=== PATIENT | female | born 1945 | race Caucasian/White ===

== ENCOUNTER → 2017-09-20 08:19 | Outpatient (CLI) | payer MEDICARE, SELFPAY ==
--- NOTE | 2017-09-20 08:33 | MM_ITS ---
MM Dig screening mamm BI w/CAD CAD Screening ORDERING PHYSICIAN : Rashi Thomson MD PATIENT AGE: 72 years GENDER: Female COMPARISON: Previous mammograms: 20 INDICATION: Previous stereotactic biopsy upper-outer quadrant bilateral. November 2016 but that doesn't work TECHNIQUE: Standard CC and MLO images were obtained. R2 CAD reviewed. FINDINGS: RIGHT BREAST: Small metallic MicroMark clip at the upper outer quadrant right breast at site of previous biopsy. No new areas of concern on the right. Follow-up in one year on right adequate LEFT BREAST:. On cc view focal density along the tract of previous percutaneous biopsy dissipates on the MLO view and. I believe it merely reflects the scarring extends superiorly along the tract to this biopsy site... The small grouping calcifications of concern were removed with prior biopsy.. This area is labeled X with the metallic biopsy marker at its anterior aspect Area labeled Y just medial to this is been seen previously but is slightly more pronounced today. This may merely be projection but does warrant additional views. I would suggest the patient return for MLO, 90 degree, and cc spot views of upper outer quadrant. Rolled cc views may be of benefit if densities persist on the cc spot view.. At the area labeled Y appears to be more pronounced and may warrant a ultrasound as well but I suspect that we'll dissipate compatible with studies dating back to 2010 Other densities the left breast appear stable specifically area previously labeled Y., & Medial to the biopsy site. This would benefit from interval follow-up as well IMPRESSION: ------ 1. Left breast ... Focal density related to previous percutaneous biopsy-pronounced cc view but it dissipates on MLO view & most likely reflects scarring along the biopsy entry tract. This area labeled X. ... Focal area density labeled Y just medial to this, seen previously but appears more pronounced today. It most likely stable density but would suggest spot views of both these areas as described above to further evaluate.. If they appear more pronounced the prior studies and ultrasound may be of benefit to further evaluate as well 2. Right breast. Stable appearance of the right breast. No new findings. Follow-up in one year adequate on right. BI-RADS Category: 0 Need Additional Imaging Evaluaiton RECOMMENDED FOLLOW-UP: IMM - IMMEDIATE FOLLOW-UP RECOMMENDED . Spot views left breast.; If significant appearing densities persist then ultrasound may be warranted (A letter has been sent to the patient regarding results of the study.)
== END ==
PROVIDERS: PCP Family Medicine; Visit Provider Surgery
DX: Z12.31 Encounter for screening mammogram for malignant neoplasm of breast (principal)
CPT/HCPCS: 77067

== ENCOUNTER → 2017-10-04 12:36 | Outpatient (CLI) | payer MEDICARE, SELFPAY ==
--- NOTE | 2017-10-04 | US_ITS ---
MM Dig mamm DX unilat LT WITH CAD,. Diagnostic mammogram left breast with spot views US breast LT complete ORDERING PHYSICIAN : Rashi Thomson MD PATIENT AGE: 72 years GENDER: Female COMPARISON: Previous mammograms: September 20, 2017, mammogram 9 month post biopsy INDICATION: Further evaluation density upper-outer quadrant left breast postbiopsy TECHNIQUE: Spot CC and MLO & 90 degree images were obtained. Along with rolled cc views entire breast. R2 CAD reviewed. ====== DIGITAL MAMMOGRAM LEFT BREAST WITH SPOT VIEWS :Patient is undergone stereotactic biopsy upper-outer quadrant left breast with metallic marker here. Focal density labeled X immediately posterior to the metallic marker is noted on recent studies today's additional views support that it reflects a vertical area of density and scarring along the entry tract towards superior breast. The density dissipates and rolled cc views and we see a vertically oriented area of density on the 90 degree and MLO view contrast this focal density which is due to summation shadow. The area labeled Y just medial to this appears to dissipate on additional views with no focal area of concern Patient may resume annual scheduled, with bilateral mammogram Aug 2018 or September 2018 ======== ULTRASOUND LEFT BREAST including axillary survey Ultrasound survey of the entire breast performed through the axillary survey. Today's Ultrasound left breast shows no discrete nodule or mass. No areas of significant concern. This further supports density seen on mammography is related to summation shadow.. Benign axillary lymph node. IMPRESSION: 1. Additional views left breast at left breast ultrasound decreased concern regarding any significant finding. . Patient may resume annual mammography schedule . 2. The density labeled X seen at prior biopsy site on cc view, dissipates on other views and appears to be related to summation shadow related from vertically oriented needle biopsy tract residual... No area of significant concern . 3. The questioned area density labeled Y on prior studies dissipates on these views and similar to old studies. It can be followed BI-RADS Category: 2 Benign Finding(s). RECOMMENDED FOLLOW-UP: 1YR - 1 YEAR FOLLOW-UP Follow-up in August 2018 or September 2018 adequate (A letter has been sent to the patient regarding results of the study.)
== END ==
PROVIDERS: PCP Family Medicine; Visit Provider Surgery
DX: R92.8 Other abnormal and inconclusive findings on diagnostic imaging of breast (principal)
CPT/HCPCS: 19083; 76641; 77065

== ENCOUNTER → 2017-10-12 09:45 | Outpatient (CLI) | payer MEDICARE, SELFPAY ==
--- NOTE | 2017-10-12 10:43 | XR_ITS ---
XR foot RT min 3V HISTORY: ITS.REASON: DM, PN, HAMMERTOES ORDERING PHYSICIAN: Sally Mcclure DPM PATIENT AGE: 72 years COMPARISON: None FINDINGS: Marked deformity is present involving the distal aspect of the second through fifth metatarsals with thinning and pointing of the distal aspect of the metatarsals. Similar processes involving the proximal phalanx of the second and fourth toes. Etiology of this deformity is undetermined. Psoriatic arthritis may cause a pencil in cup deformity such as this. Please correlate with clinical parameters. There is flexion deformity involving the second through fifth toes with foreshortening of the proximal phalanx of the third toe. Moderate hallux valgus with a first metatarsophalangeal angle of 39 degrees with osteoarthritic change of the first metatarsophalangeal joint. Hypertrophic changes are present at the base of the second metatarsal. There is generalized osteopenia with severe osteoarthritic changes of the ankle joint with collapse of the talar dome and osteoarthritic change of the talocalcaneal joint. There may be mid foot fusion of the navicular and cuneiforms. No acute fracture apparent. No bony destructive process. There is an old fracture the distal shaft of the fibula. IMPRESSION: Marked deformity of the right foot involving hindfoot and midfoot and forefoot as detailed above. Pencil in cup deformities of the second through fifth metatarsals which may be seen with psoriatic arthritis. Hallux valgus. Fusion of the mid foot. Severe osteoarthritis of the ankle joint with collapse of the talus and possible prior fusion of the talocalcaneal joint
--- NOTE | 2017-10-12 10:43 | XR_ITS ---
XR foot LT min 3V HISTORY: Foot pain ITS.REASON: DM, PN, HAMMERTOES ORDERING PHYSICIAN: Sally Mcclure DPM PATIENT AGE: 72 years COMPARISON: None FINDINGS: There is mild hallux valgus the first metatarsophalangeal angle of 25 degrees and mild hypertrophic changes of the distal aspect of the first metatarsal. There are osteoarthritic changes of the navicular cuneiform joint. A metallic and is present in the mid shaft of the second metatarsal with some cortical thickening at this region. There is mild flattening of the distal aspect of the third metatarsal which could be due to old avascular process. The distal aspect of the proximal phalanx of the second, third, fourth, and fifth toes is missing and could be due to prior surgery or erosive changes. Please correlate clinically. May be an old fracture of distal aspect of the fourth metatarsal as well IMPRESSION: 1. Hallux valgus with osteoarthritis and midfoot osteoarthritis. 2. Deformity of the proximal phalanx of the second through fifth toes which could be postsurgical or due to erosive changes. 3. 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
== END ==
PROVIDERS: PCP Family Medicine; Visit Provider Podiatrist
DX: E11.42 Type 2 diabetes mellitus with diabetic polyneuropathy (principal); M20.40 Other hammer toe(s) (acquired), unspecified foot
CPT/HCPCS: 73630

== ENCOUNTER → 2017-11-17 10:56 | Outpatient (CLI) | payer MEDICARE, SELFPAY ==
--- NOTE | 2017-11-17 11:15 | XR_ITS ---
XR knee RT 3V HISTORY: Right knee pain and swelling ITS.REASON: RT KNEE PAIN ORDERING PHYSICIAN: Miles Garcia MD PATIENT AGE: 72 years COMPARISON: None FINDINGS: There are mild tricompartmental osteoarthritic changes present with slight decrease in the joint spaces and minimal osteophyte formation at the medial compartment and patellofemoral joint. There is increased density in the suprapatellar region consistent with knee joint effusion. There is a lucency along the superior aspect of the patella measuring 11 mm. This could be related to dorsal defect of the patella or osteochondritis dissecans. There is chondrocalcinosis of medial and lateral menisci. IMPRESSION: 1. Mild tricompartmental osteoarthritic change with chondrocalcinosis. 2. Lucency of the patella superiorly and may be due to dorsal defect of the patella versus osteochondritis desiccation. 3. Knee joint effusion
== END ==
PROVIDERS: PCP Family Medicine; Visit Provider Family Medicine
DX: M25.561 Pain in right knee (principal)
CPT/HCPCS: 73562

== ENCOUNTER 2018-01-04 08:00 | Outpatient (RCR) | payer MEDICARE, SELFPAY ==
--- NOTE | 2017-11-24 13:50 | HMH.PTOPEV ---
Rehab Outpatient Evaluation Rehab OP Evaluation Start: 11/24/17 13:01 Freq: Status: Active Protocol: Document 11/24/17 13:36 CARMEN (Rec: 11/24/17 13:44 PHORMONIQUE [id number]) Electronically Signed By Rey Botello, PT 11/24/17 13:36 Outpatient Therapy Subjective History Subjective History Pt presents with c/o pain in right knee x ~ 2 mos. She states, I stepped wrrong and kind of twisted it and it hurt for a few days then got better, but not all the way. Pt had X-ray performed which shows OA of the right knee. She reports extensive hx of DM with neuropathy and prior episode of Charcot foot on right years ago requiring her to wear an AFO at all times. She also reports hx of HL and CVI. Chief Complaint Pain Symptom Type Ache Symptoms Relieved By Rest/Positioning Symptoms Aggravated By Standing Walking Prior Functional Limitations None Current Functional Limitations Standing Walking Symptom Description Activity Dependent Level of pain today (0-10) 0 Pain scale - at its worst (0-10) 4 Hip/Knee Eval Gait Observation General Gait Pattern Observation No Deviations/Normal Palpation Tenderness right Knee Palpation Finding Tenderness Knee Palpation Overall Comment medial knee jt line MMT Hip Strength Reason Not Measured WFL Knee Strength Reason Not Measured WFL ROM Knee Extension Active Range of Motion ( 0 degrees) Knee Flexion Active Range of Motion ( 120 degrees) Special Tests Knee Anterior Drawer Test Negative Right Thompson 90/90 Test (PCL) Negative Right Knee Anterior Papo Test Negative Right Knee Pivot Shift Test Negative Right Knee Valgus Stress Test Negative Right Knee Varus Stress Test Negative Right Knee Annemarie Test Negative Right Outpatient Therapy Assessment Impairments Problems/Impairmments Palpation Tenderness Impaired Walking Impaired Standing Subjective C/O Pain Impaired Self Care/Self Management Prognosis Rehab Potential Good Clinical Impression Consistent with Diagnosis Yes Short Term Go
== END 2018-01-04 08:01 | disposition home or self-care (01) ==
LOC: PT 08:00
PROVIDERS: PCP Family Medicine; Visit Provider Family Medicine
DX: M25.561 Pain in right knee (principal)
CPT/HCPCS: 97010; 97014; 97016; 97033; 97035; 97110; 97140; G0283

== ENCOUNTER → 2018-09-07 10:11 | Outpatient (POV) | payer MEDICARE, SELFPAY | PROVIDERS: Visit Provider Podiatrist | DX: Z00.00 Encounter for general adult medical examination without abnormal findings (principal) ==

== ENCOUNTER → 2018-09-25 08:09 | Outpatient (CLI) | payer MEDICARE, SELFPAY ==
--- NOTE | 2018-09-25 08:15 | MM_ITS ---
MM Dig screening mamm BI w/CAD ORDERING PHYSICIAN : Rashi Thomson MD PATIENT AGE: 73 years GENDER: Female COMPARISON: September & November 2016. August 2016 INDICATION: No hormones no new complaints. Noncontributory family history. Previous stereotactic biopsy upper-outer quadrant left rest breast as well as right breast-performed November 2016 TECHNIQUE: Standard CC and MLO images were obtained. R2 CAD reviewed. Additional nipple profile cc view right breast. FINDINGS: Minimal residual fibroglandular densities bilaterally. Lower density breast. No new findings of significant concern in either breast. RIGHT BREAST:No new areas of concern right breast. Follow-up in one year. . Density at the deep breast MLO view is seen on 2014 and 2008 right MLO view. Can be followed. LEFT BREAST: No new areas of concern left breast. Follow-up in one year. There is been further regression of the density at the upper outer quadrant left breast at site of previous percutaneous biopsy. This area is labeled X on 2017 study. Just medial to this was a density labeled Y which is less evident as well. No new areas of concern either breast IMPRESSION: No new areas of concern in either breast. Bilateral follow-up in one year. Recommend BI-RADS Category: 2 Benign Finding(s) RECOMMENDED FOLLOW-UP: 1YR 1 YEAR FOLLOW-UP (A letter has been sent to the patient regarding results of the study.)
== END ==
PROVIDERS: PCP Family Medicine; Visit Provider Surgery
DX: Z12.31 Encounter for screening mammogram for malignant neoplasm of breast (principal)
CPT/HCPCS: 77067

== ENCOUNTER → 2018-11-23 09:19 | Outpatient (POV) | payer MEDICARE, SELFPAY | PROVIDERS: Visit Provider Podiatrist | DX: Z00.00 Encounter for general adult medical examination without abnormal findings (principal) ==

== ENCOUNTER → 2018-12-07 09:28 | Outpatient (POV) | payer MEDICARE, SELFPAY | PROVIDERS: Visit Provider Podiatrist | DX: Z00.00 Encounter for general adult medical examination without abnormal findings (principal) ==

== ENCOUNTER → 2019-01-04 08:58 | Outpatient (POV) | payer MEDICARE, SELFPAY | PROVIDERS: Visit Provider Podiatrist | DX: Z00.00 Encounter for general adult medical examination without abnormal findings (principal) ==

== ENCOUNTER → 2019-02-01 09:29 | Outpatient (POV) | payer MEDICARE, SELFPAY | PROVIDERS: Visit Provider Podiatrist | DX: Z00.00 Encounter for general adult medical examination without abnormal findings (principal) ==

== ENCOUNTER → 2019-09-04 15:10 | Outpatient (CLI) | payer MEDICARE, SELFPAY ==
--- NOTE | 2019-09-04 15:16 | XR_ITS ---
PROCEDURE: XR LUMBAR SPINE MIN 4V CLINICAL INDICATION: ACUTE RT SIDE LBP WITH SCIATICA COMPARISON: No exams were available for comparison FINDINGS: Mild lumbar scoliosis convex left with multilevel degenerative disc disease and facet arthritic change. Degenerative disc disease is present from T12-S1 worse at the L3-L4 and L4-5 level. No lytic or blastic change. No fracture or dislocation. IMPRESSION: Degenerative changes with scoliosis Dictated by: Brent Hall MD 09/04/2019 15:51 Electronically signed by Brent Hall MD in [place] 09/04/2019 15:51
== END ==
PROVIDERS: PCP Family Medicine; Visit Provider Nurse Practitioner Family
DX: M54.41 Lumbago with sciatica, right side (principal)
CPT/HCPCS: 72110

== ENCOUNTER → 2019-11-22 09:14 | Outpatient (CLI) | payer MEDICARE, SELFPAY ==
--- NOTE | 2019-11-22 09:14 | MM_ITS ---
PROCEDURE: MM DIG MAMM BI DX W/CAD Digital Breast Tomosynthesis Included CLINICAL INDICATION: screening COMPARISON: [facility] DIG MAMM-SCREEN [place] from 09/01/2015 [facility] DIG MAMM-SCREEN [place] W/CAD from 09/16/2016 [facility] DIG MAMM- [place] ADD VIEWS W/CAD from 09/29/2016 [facility] DIG MAMM-DX [place] W/CAD from 11/24/2016 [facility] MM Dig screening mamm BI w/CAD from 09/20/2017 [facility] MM Dig mamm DX unilat LT CAD from 10/04/2017 [facility] MM Dig screening mamm BI w/CAD from 09/25/2018 TECHNIQUE: Standard CC and MLO images and 3D Tomosynthesis was obtained. R2 CAD reviewed. FINDINGS: There is average fibroglandular tissue. No malignant appearing mass or malignant-appearing microcalcification is evident. A clip is present in the upper outer aspect of the left breast and the upper inner aspect of the right breast. There is focal increased density in this region consistent with post biopsy scarring which has been stable compared to 09/20/2017. IMPRESSION: BI-RAD Category: 2 Benign Finding(s) FOLLOW-UP: 1YR 1 Year Follow-up (A letter has been sent to the patient regarding results of the study.) Dictated by: Brent Hall MD 11/23/2019 12:41 Electronically signed by Brent Hall MD in [place] 11/23/2019 12:41
== END ==
PROVIDERS: PCP Family Medicine; Visit Provider Surgery
DX: R92.8 Other abnormal and inconclusive findings on diagnostic imaging of breast (principal)
CPT/HCPCS: 77062; 77066; G0279

== ENCOUNTER → 2019-12-05 11:25 | Outpatient (CLI) | payer MEDICARE, SELFPAY ==
--- NOTE | 2019-12-05 11:31 | XR_ITS ---
PROCEDURE: XR FOOT WT BEARING RT 3V CLINICAL INDICATION: pain COMPARISON: [id number] XR foot RT min 3V from 10/12/2017 [id number] XR foot LT min 3V from 10/12/2017 FINDINGS: Marked deformity is once again noted involving the distal aspect of the 2nd through 5th metatarsals with thinning and pointing of the distal aspect of the metatarsals. A similar process also involves the proximal phalanx of the 2nd and 4th toes. This is of uncertain etiology. Psoriatic arthritis may cause a pencil and cup deformity such as this. Please correlate with clinical parameters. There is moderate hallux valgus with osteoarthritic change and bunion formation at the 1st metatarsophalangeal joint. Bony hypertrophic changes present between the base of the 1st and 2nd metatarsals. Osteoarthritic changes are present involving the tarsals. There is collapse of the talar dome with osteoarthritic change of the tibiotalar joint. Severe osteoarthritic changes are present at the posterior subtalar joint with inferior rotation of the talus. No acute fracture or dislocation. Overall no significant change from 10/12/2017. IMPRESSION: Overall no significant change in the marked foot deformity involving the hindfoot and midfoot as detailed above with pencil in cup deformities of the 2nd through 5th metatarsals which may be seen with psoriatic arthritis. Underlying hallux valgus with severe osteoarthritic change of the ankle joint and collapse of the talus. Dictated by: Bernt Hall MD 12/05/2019 14:02 Electronically signed by Brent Hall MD in [place] 12/05/2019 14:02
--- NOTE | 2019-12-05 11:31 | XR_ITS ---
PROCEDURE: XR FOOT WT BEARING LT 3V CLINICAL INDICATION: pain Bilateral foot pain, neuropathy COMPARISON: [id number] XR foot RT min 3V from 10/12/2017 [id number] XR foot LT min 3V from 10/12/2017 XR FOOT WT BEARING RT 3V from 12/05/2019 FINDINGS: Mild hallux valgus with mild osteoarthritis at the 1st MTP joint. Deformity of the proximal phalanx of the 2nd 3rd and 4th and 5th toes once again noted and could be due to prior surgery or erosive changes as before. There is flattening of the head of the 3rd metatarsal as before. A small metallic pin is present through the mid shaft of the 2nd metatarsal with cortical thickening. No acute fracture or dislocation. There are osteoarthritic changes of the talonavicular and navicular cuneiform joint as well as the metatarsal tarsal junction. There is a type 2 os naviculare. Osteoarthritis is present at the calcaneocuboid joint. IMPRESSION: No change from 10/12/2017 in the multitude of osteoarthritic changes with pointing of the distal aspect of the proximal phalanx of the 2nd 3rd 4th and 5th toes which could be due to arthritic changes such is psoriasis. Please correlate clinically. Dictated by: Brent Hall MD 12/05/2019 18:43 Electronically signed by Brent Hall MD in [place] 12/05/2019 18:43
== END ==
PROVIDERS: PCP Family Medicine; Visit Provider Podiatrist
DX: M20.41 Other hammer toe(s) (acquired), right foot (principal); M20.42 Other hammer toe(s) (acquired), left foot; M79.671 Pain in right foot; M79.672 Pain in left foot
CPT/HCPCS: 73630

== ENCOUNTER → 2019-12-31 08:40 | Outpatient (CLI) | payer MEDICARE, SELFPAY ==
--- NOTE | 2019-12-31 08:46 | NM_ITS ---
PROCEDURE: NM BONE SCAN WHOLE BODY CLINICAL INDICATION: LUMBAR PAIN Low back pain COMPARISON: CT LUMBAR SPINE WO CON from 12/22/2019 NM BONE SPECT from 12/31/2019 MR LUMBAR SPINE WO CON from 12/31/2019 TECHNIQUE: Dose: 25.8 mCi technetium MDP. Whole body images are obtained along with SPECT images of the lumbar spine FINDINGS: Degenerative activity noted in the SI joints shoulders and knees feet and ankles. There is intense increased activity in the region the L4-L5 junction and L5-S1 facets. SPECT images confirm the increased activity at L4-L5 to be mainly at the disc space but also in the facets at L4-L5. The increased activity is greater along the right aspect of the disc space. There are type 1 endplate changes on the MRI at this area. There is intense increased activity in the pedicle/facet area at L5-S1. There is some bone marrow edema noted at this area on the MRI. IMPRESSION: 1. Abnormal bone scan with focal increased activity at L4-5 disc space and L4-5 and L5-S1 facets which may be related to inflammatory arthritic changes. One cannot exclude the possibility of underlying infection based on the bone scan although the MRI appearance does not support that etiology. Please correlate with sedimentation rate and other appropriate laboratory values. 2. Other degenerative changes as described above. 3. No convincing evidence of metastatic disease. Dictated by: Brent Hall MD 01/02/2020 09:54 Electronically signed by Brent Hall MD in [place] 01/02/2020 09:54
--- NOTE | 2019-12-31 09:02 | MR_ITS ---
PROCEDURE: MR LUMBAR SPINE WO CON CLINICAL INDICATION: LUMBAR PAIN Low back pain, left leg pain, bilateral feet numbness COMPARISON: CT LUMBAR SPINE WO CON from 12/22/2019 TECHNIQUE: Standard multiplanar multiecho sequences are performed without contrast. 3-D MIP and myelographic images are also rendered and reviewed FINDINGS: There is normal alignment. The spinal cord ends at the L2 level. T10-T11: Mild chronic wedge compression changes of T11 with degenerative disc disease T10-T11 bulging disc slightly eccentric toward the right with mild right-sided foraminal narrowing She T11-T12: Mild degenerative disc disease. T12-L1: Degenerate disc disease with minimal bulging disc. C L1-L2: Unremarkable. L2-L3: Mild concentric bulging disc age is this. L3-L4: Degenerate disc disease with facet and ligamentum hypertrophy with moderate bilateral foraminal and lateral recess narrowing. There is a 1.8 cm T1 and T2 hyperintensity involving the L3 vertebral body consistent with lipoma/lipid rich hemangioma L4-5: Degenerate disc disease with bulging disc and broad-based central left paracentral disc protrusion along with facet ligamentum hypertrophy. There is resultant canal stenosis of 10 mm with severe bilateral lateral recess and foraminal narrowing which is greater on the left compared to the right. Type 1 endplate changes are present centrally and on the right. L5-S1: Degenerate disc disease L5-S1 with bulging disc. There is an area of isointensity in the left paracentral region which appears to extend from the L5-S1 disc superiorly suggesting an extruded small disc herniation with superior extrusion. This extends superiorly to the L4-5 level but is felt to originate from the L5-S1 level. Cannot completely exclude the possibility that this is ridging aids from the L4-5 level. Repeat exam with contrast may provide further evaluation. This is causing severe left lateral recess narrowing. There is severe left-sided foraminal narrowing. There is a small amount fluid in the facet joints at this level. IMPRESSION: 1. Abnormal MRI of the lumbar spine with multilevel degenerative changes/lumbar spondylosis. With facet and ligamentum hypertrophy with bulging disc with lateral recess and foraminal narrowing. Please see above for detailed description at each level 2. L3-L4: Degenerate disc disease with facet and ligamentum hypertrophy with moderate bilateral foraminal and lateral recess narrowing. There is a 1.8 cm T1 and T2 hyperintensity involving the L3 vertebral body consistent with lipoma/lipid rich hemangioma 3. L4-5: Degenerate disc disease with bulging disc and broad-based central left paracentral disc protrusion along with facet ligamentum hypertrophy. There is resultant canal stenosis of 10 mm with severe bilateral lateral recess and foraminal narrowing which is greater on the left compared to the right. Type 1 endplate changes are present centrally and on the right. 4. L5-S1: Degenerate disc disease L5-S1 with bulging disc. There is an area of isointensity in the left paracentral region which appears to extend from the L5-S1 disc superiorly suggesting an extruded herniated disc with superior extrusion. This extends superiorly to the L4-5 level but is felt to originate from the L5-S1 level. Cannot completely exclude the possibility that this is a originating from the L4-5 level. Repeat exam with contrast may provide further evaluation. This is causing severe left lateral recess narrowing. There is severe left-sided foraminal narrowing. Dictated by: Brent Hall MD 01/01/2020 19:08 Electronically signed by Brent Hall MD in [place] 01/01/2020 19:08
[2019-12-31 10:54] LABS: Basophils % 0.8 % (0.1-2.0); Eosinophils # 0.1 K/mm3 (0.0-0.4); Eosinophils % 2.4 % (0.1-12.0); Hematocrit 38.2 % (37.0-47.0); Hemoglobin 12.7 g/dL (12.2-16.2); Lymphocytes # 1.6 K/mm3 (0.7-4.5); Lymphocytes % 32.4 % (10-50); Mean Corpuscular HGB Conc 33.3 g/dL (31.8-35.4); Mean Corpuscular Hemoglobin 31.2 pg (27.0-31.2); Mean Corpuscular Volume 93.8 fl (81-99); Mean Platelet Volume 8.1 fl (7.4-10.4); Monocytes # 0.3 K/mm3 (0.1-1.0); Monocytes % 6.5 % (1.7-9.3); Neutrophils # 2.9 K/mm3 (1.8-7.8); Neutrophils % 57.9 % (37.0-80.0); Platelet Count 228 K/mm3 (142-424); Red Blood Count 4.07 M/mm3 (4.20-5.40); Red Cell Distribution Width 12.6 % (11.5-17.5); White Blood Count 5.1 K/mm3 (4.8-10.8)
[2019-12-31 12:20] LABS: Erythrocyte Sedimentation Rate 64 mm/hr (0-30)
--- NOTE | 2019-12-31 12:53 | NM_ITS ---
PROCEDURE: NM BONE SPECT CLINICAL INDICATION: LUMBAR PAIN Low back pain COMPARISON: CT LUMBAR SPINE WO CON from 12/22/2019 NM BONE SPECT from 12/31/2019 MR LUMBAR SPINE WO CON from 12/31/2019 TECHNIQUE: Dose: 25.8 mCi technetium MDP. Whole body images are obtained along with SPECT images of the lumbar spine FINDINGS: Degenerative activity noted in the SI joints shoulders and knees feet and ankles. There is intense increased activity in the region the L4-L5 junction and L5-S1 facets. SPECT images confirm the increased activity at L4-L5 to be mainly at the disc space but also in the facets at L4-L5. The increased activity is greater along the right aspect of the disc space. There are type 1 endplate changes on the MRI at this area. There is intense increased activity in the pedicle/facet area at L5-S1. There is some bone marrow edema noted at this area on the MRI. IMPRESSION: 1. Abnormal bone scan with focal increased activity at L4-5 disc space and L4-5 and L5-S1 facets which may be related to inflammatory arthritic changes. One cannot exclude the possibility of underlying infection based on the bone scan although the MRI appearance does not support that etiology. Please correlate with sedimentation rate and other appropriate laboratory values. 2. Other degenerative changes as described above. 3. No convincing evidence of metastatic disease. Dictated by: Brent Hall MD 12/31/2019 17:14 Electronically signed by Brent Hall MD in [place] 01/02/2020 09:55
[2019-12-31 12:57] LABS: C-Reactive Protein 1.7 mg/L (0-4)
[2019-12-31 13:22] LABS: Thyroid Stimulating Hormone 1.15 uIU/mL (0.465-4.68)
--- NOTE | 2019-12-31 13:22 | HMH.ITSHM ---
Current Home Medications as stated by this patient Kaci Walker or sales and marketing representative. []INSULIN METHANAMINE FLUTICASONE ESTRADIOL ATORVASTATIN OSANSETRON NEBUMETONE HYDROCOD
[2020-01-01 20:04] LABS: Albumin 3.4 g/dL (2.9-4.4); Alpha-1-Globulin 0.2 g/dL (0.0-0.4); Alpha-2-Globulin 0.9 g/dL (0.4-1.0); Gamma Globulin 1.2 g/dL (0.4-1.8); Protein, Total 6.7 g/dL (6.0-8.5)
== END ==
PROVIDERS: PCP Family Medicine; Visit Provider Orthopaedic Surgery
DX: M54.5 Low back pain (principal); Z79.899 Other long term (current) drug therapy
CPT/HCPCS: 36415; 72148; 76376; 78306; 78803; 84155; 84165; 84443; 85025; 85651; 86140; A9503

== ENCOUNTER → 2020-01-05 12:22 | Outpatient (CLI) | payer MEDICARE, SELFPAY ==
[2020-01-08 13:19] LABS: Albumin, U 9.7 % (.); Beta Globulin, U 27.1 % (.); Gamma Globulin, U 58.2 % (.); M-Spike, % Not Observed % (Not Observed); Prot,24hr calculated 101 mg/24 hr (30-150); Protein,Total,Urine 6.5 mg/dL (Not Estab.)
== END ==
PROVIDERS: Visit Provider Orthopaedic Surgery
DX: M54.5 Low back pain (principal)
CPT/HCPCS: 84156; 84166

== ENCOUNTER 2020-04-28 16:16 | Emergency (ER) | payer MEDICARE, SELFPAY ==
[2020-04-28 16:17] VITALS: BP 176/81; PULSE 96; RESP 17; TEMP 36.6; O2SAT 95; BMI 30.2
--- NOTE | 2020-04-28 16:32 | CT_ITS ---
PROCEDURE: CT LUMBAR SPINE WO CON CLINICAL HISTORY: pain COMPARISON: CT CT LUMBAR SPINE WO CON from 12/22/2019 TECHNIQUE: Axial images obtained with sagittal and coronal reformats. All CT scans at the facility use one or more dose reduction, viz: automated exposure control, ma/kV adjustment per patient size (including targeted exams where dose is matched to indication, i.e. head), or iterative reconstruction technique. FINDINGS: Very mild diffuse levo scoliotic curvature of the lumbar spine is noted. There is generalized osteopenia. Again noted are the low-density foci in the L3 and L4 vertebral bodies which appear to be stable and could represent hemangiomas or lipomas. All lumbar vertebrae appear intact. There is moderate disc space narrowing and endplate sclerosis at the L3-4 and L4-5 levels. A small vacuum phenomenon of the L4-5 disc and L5-S1 discs are again noted. The spinal canal is normal in size throughout. There has been interval left-sided hemilaminectomy at the L4 level since the previous exam. There is increased soft tissue density left lateral epidural space at the L4 level causing mild mass effect on the cauda equina nerve roots. Secondary to postsurgical scarring in view of the laminectomy at this level but the density appears to have the same attenuation as the disc in this could be an extruded fragment follow-up MRI scan lumbar spine would be helpful for better characterization. There are moderate hypertrophic facet changes at the L4-5 and L5-S1 levels. There is moderate neural foraminal narrowing bilaterally at the L4 level and Galvin severe neural foraminal narrowing on the left side at L5-S1 level. The SI joints appear normal. IMPRESSION: Interval hemilaminectomy L4 left side probable post surgical scarring versus extruded fragment causing mass effect upon the cauda equina at this level and contributing to neural foraminal narrowing left side. Other findings as described above Dictated Dr. Joe Epps MD 04/29/2020 09:18 Dr. Joe Mercado MD in [place] 04/29/2020 09:18
--- NOTE | 2020-04-28 16:32 | XR_ITS ---
PROCEDURE: XR HIP LT 2-3V W/PELVIS CLINICAL INDICATION: pain COMPARISON: No exams were available for comparison FINDINGS: No fracture or dislocation is evident. No significant degenerative change. No lytic or blastic change. Unremarkable soft tissues. There is generalized vascular calcification IMPRESSION: No acute findings. Dictated b Brent Hall MD 04/28/2020 22:43 Brent Hall MD in [facility] 04/28/2020 22:43
[2020-04-28 17:48] VITALS: BP 154/85; PULSE 80; RESP 18; TEMP 36.7; O2SAT 98
--- NOTE | 2020-04-28 18:05 | HMH.EDGENADL ---
ED Disposition Clinical Impression: Back pain at L4-L5 level, Overweight (BMI 25.0-29.9), Type 2 diabetes mellitus with diabetic neuropathy, with long-term current use of insulin, Acute back pain with radiculopathy Disposition: Home, Self-Care Condition on Discharge: Good Referrals: Jorden Resendez MD [Primary Care Provider] - - Critical Care Critical Care Time: No Attestation: On 04/28/20, the high probability of a clinically significant, sudden or life threatening deterioration of the following system(s) required my full and direct attention, intervention and personal management. The time I documented below is in addition to time spent performing reported procedures but includes the following listed in this critical care notation. Medical Decision Making - Medical Records Medical records reviewed: Yes: I reviewed the patient's medical records. - Andres Inquiry Pt receiving controlled substance: No Vital Signs: 04/28/20 16:17 04/28/20 17:48 Temperature 98 F 98.1 F Temperature Source Oral Pulse Rate 80 Pulse Rate [Right] 96 H Respiratory Rate 17 18 Blood Pressure 154/85 H Blood Pressure [Right Arm] 176/81 H Blood Pressure Mean [Right Arm] 112 02 Sat by Pulse Oximetry 95 - Lab Data Lab results reviewed: Yes: I reviewed the patient's lab results. Orders (Tests/Meds): ED MEDICATIONS Discontinued Medications Generic Name Dose Route Start Last Admin Trade Name Freq PRN Reason Stop Dose Admin Ketorolac Tromethamine 60 mg 04/28/20 16:33 04/28/20 16:42 Toradol 30mg/Ml Vial IM 04/28/20 16:34 60 mg ONCE ONE Administration ORDERS Category Date Time Status CT lumbar spine wo con Stat Cat Scan 04/28/20 16:32 Taken XR hip LT 2-3V w/pelvis Stat Exams 04/28/20 16:32 Taken - CT Data CT Scan: L-Spine Time Received: 18:00 Preliminary Findings: Abnormal (Postsurgical changes) Medical Decision Narrative: Talk to the patient extensively about following up with her surgeon that did the procedure. Also I strongly encouraged her to get set up with physical therapy because there is modalities in physical therapy that they can do to help alleviate pain and also strengthen her core muscles which will definitely take off the pressure on her lower back. Patient did seem agree into 1 to go to physical therapy. Patient states she will talk to she cannot get in touch with her surgeon she will talk to Dr. Resendez about setting her up for physical therapy. General Adult HPI - General Chief complaint: PAIN Stated complaint: Hip pain Time Seen by Provider: 04/28/20 18:05 Mode of Arrival: Ambulatory Limitations: No Limitations Description of Symptoms (Recalled from ER Triage Doc. by RN): Pt c/o left hip pain for 9 weeks after having back surgery. Pt states the pain radiates down his left leg. - History of Present Illness HPI narrative: 75-year-old female presents with lower back pain and some back pain going down to her right leg. She states that this is been going on really since she has had back surgery which was done about 9 weeks ago. Patient denies any bowel or bladder incontinence. Patient denies any difficulty ambulating patient denies any other acute symptoms. Patient has not had any injury since her surgery this is all postsurgical. - Related Data Home Medications Medication Instructions Recorded Confirmed acetaminophen 650 mg 650 mg PO ONCE 10/04/17 12/06/19 tablet,extended release aspirin 81 mg tablet,delayed 81 mg PO ONCE 10/04/17 12/06/19 release atorvastatin 40 mg tablet 40 mg PO DAILY 90 Days #90 tab 10/04/17 12/06/19 blood sugar diagnostic See Dose Instructions .ROUTE 10/04/17 12/06/19 .MEDSUPPLY #20 each estradiol 1 g VAGINAL ONCE 10/04/17 12/06/19 insulin syringe-needle U-100 0.3 See Dose Instructions .ROUTE 10/04/17 12/06/19 mL 31 gauge x 15/64 .MEDSUPPLY #90 each methenamine hippurate 1 gram tablet 1 g PO DAILY 30 Days #30 tab 10/04/17 12/06/19
== END 2020-04-28 18:15 | disposition home or self-care (01) ==
PROVIDERS: Emergency Provider Family Medicine; PCP Internal Medicine Adolescent Medicine
DX: M54.16 Radiculopathy, lumbar region (principal); E11.9 Type 2 diabetes mellitus without complications; Z79.4 Long term (current) use of insulin; K21.9 Gastro-esophageal reflux disease without esophagitis; E78.5 Hyperlipidemia, unspecified; Z79.899 Other long term (current) drug therapy
CPT/HCPCS: 72131; 73502; 96372; 99282

== ENCOUNTER 2020-05-30 11:00 | Outpatient (RCR) | payer MEDICARE, SELFPAY ==
--- NOTE | 2020-05-05 09:38 | HMH.PTOPEV ---
PT Outpatient Evaluation Rehab PT Outpatient Evaluation Start: 05/05/20 08:10 Freq: Status: Active Protocol: Document 05/05/20 08:31 BRANDON (Rec: 05/05/20 09:38 BRANDON [id number]) Electronically Signed By Lee Verma, PT 05/05/20 08:31 Outpatient Therapy Subjective History Subjective History Pt reports Lumbar spine disc sx on 02/25/20, 'which really helped, but now I've got some symptoms coming back'. Pt reports L sided LBP and L LE radicular s/s increased over the last ~30 days, improved recently w/pres. meds from new PCP. PMH: DM Chief Complaint Pain,Stiff,Paresthesia Symptom Type Ache,Dull Symptoms Relieved By Rest/Positioning,Prescription Meds Symptoms Aggravated By Standing,Walking Prior Functional Limitations Standing,Walking Current Functional Limitations Lifting,Housework,Standing, Walking Symptom Description Constant but Variable Level of pain today (0-10) 2 Pain scale - at its best (0-10) 2 Pain scale - at its worst (0-10) 6 Lumbopelvic Eval Posture Thoracic Spine Posture Standing Position Increased Kyphosis Lumbar Spine Posture Standing Position Fixed Scoliosis on (L) Assistive device Assistive Devices None / NA Gait Observation General Gait Pattern Observation Antalgic Gait,Shuffling Step Palapation tenderness left lumbar spinal tenderness Yes: 2/4 paraspinal tenderness Yes: 3/4 buttock tenderness Yes: 3/4 Lumbar/Sacral Palpation Findings Tenderness,Trigger Point, Muscle Guarding right paraspinal tenderness Yes: 2/4 Accessory Movement L-spine Vertebrae Accessory Movements Central P/A [place] that Elicit Symptoms L4 left L5 left S1 left Range of Motion Lumbar Spine Active Flexion Range of 0-40 Motion (degrees) Lumbar Spine Active Extension Range of 0-10 Motion (degrees) Left Lumbar Spine Lateral Flexion Active 0-20 Range of Motion (degrees) Right Lumbar Spine Lateral Flexion 0-20 Active Range of Motion (degrees) Lumbar Spine ROM Limitations Pain Manual Muscle Test Right Knee Extension Strength Grade 5 Normal Knee Flexion Strength Grade 5 Normal Hip Flexion Strength Grade 4 Good Extensor Hallucis Longus Strength Grade 5 Normal Ankle Dorsiflexion Strength Grade 4 Good Gastronemius/Soleus Strength Grade 5 Normal Left Knee Extension Strength
--- NOTE | 2020-05-05 09:51 | HMH.PTOPEV ---
PT Outpatient Evaluation Rehab PT Outpatient Evaluation Start: 05/05/20 08:10 Freq: Status: Active Protocol: Document 05/05/20 08:31 BRANDON (Rec: 05/05/20 09:38 BRANDON [id number]) Electronically Signed By Lee Verma, PT 05/05/20 08:31 Outpatient Therapy Subjective History Subjective History Pt reports Lumbar spine disc sx on 02/25/20, 'which really helped, but now I've got some symptoms coming back'. Pt reports L sided LBP and L LE radicular s/s increased over the last ~30 days, improved recently w/pres. meds from new PCP. PMH: DM Chief Complaint Pain,Stiff,Paresthesia Symptom Type Ache,Dull Symptoms Relieved By Rest/Positioning,Prescription Meds Symptoms Aggravated By Standing,Walking Prior Functional Limitations Standing,Walking Current Functional Limitations Lifting,Housework,Standing, Walking Symptom Description Constant but Variable Level of pain today (0-10) 2 Pain scale - at its best (0-10) 2 Pain scale - at its worst (0-10) 6 Lumbopelvic Eval Posture Thoracic Spine Posture Standing Position Increased Kyphosis Lumbar Spine Posture Standing Position Fixed Scoliosis on (L) Assistive device Assistive Devices None / NA Gait Observation General Gait Pattern Observation Antalgic Gait,Shuffling Step Palapation tenderness left lumbar spinal tenderness Yes: 2/4 paraspinal tenderness Yes: 3/4 buttock tenderness Yes: 3/4 Lumbar/Sacral Palpation Findings Tenderness,Trigger Point, Muscle Guarding right paraspinal tenderness Yes: 2/4 Accessory Movement L-spine Vertebrae Accessory Movements Central P/A [place] that Elicit Symptoms L4 left L5 left S1 left Range of Motion Lumbar Spine Active Flexion Range of 0-40 Motion (degrees) Lumbar Spine Active Extension Range of 0-10 Motion (degrees) Left Lumbar Spine Lateral Flexion Active 0-20 Range of Motion (degrees) Right Lumbar Spine Lateral Flexion 0-20 Active Range of Motion (degrees) Lumbar Spine ROM Limitations Pain Manual Muscle Test Right Knee Extension Strength Grade 5 Normal Knee Flexion Strength Grade 5 Normal Hip Flexion Strength Grade 4 Good Extensor Hallucis Longus Strength Grade 5 Normal Ankle Dorsiflexion Strength Grade 4 Good Gastronemius/Soleus Strength Grade 5 Normal Left Knee Extension Strength
== END 2020-05-30 11:56 | disposition home or self-care (01) ==
LOC: PT 11:00
PROVIDERS: PCP Internal Medicine Adolescent Medicine; Visit Provider Internal Medicine Adolescent Medicine
DX: M54.42 Lumbago with sciatica, left side (principal)
CPT/HCPCS: 97010; 97012; 97014; 97035; 97110; 97140; 97163; G0283

== ENCOUNTER → 2020-07-21 15:19 | Outpatient (POV) | payer MEDICARE, SELFPAY | PROVIDERS: Visit Provider Nurse Practitioner Family | DX: Z00.00 Encounter for general adult medical examination without abnormal findings (principal) ==

== ENCOUNTER → 2020-08-02 10:12 | Outpatient (CLI) | payer MEDICARE, SELFPAY ==
[2020-08-02 12:51] LABS: Coronavirus 19 IgG Antibody Positive (Negative); Coronavirus 19 IgM Antibody Negative (Negative)
== END ==
PROVIDERS: Visit Provider Internal Medicine Gastroenterology
DX: Z01.818 Encounter for other preprocedural examination (principal); Z13.810 Encounter for screening for upper gastrointestinal disorder; Z12.11 Encounter for screening for malignant neoplasm of colon
CPT/HCPCS: 36415; 86328

== ENCOUNTER 2020-08-04 07:46 | Day surgery (SDC) | payer MEDICARE, SELFPAY ==
[2020-07-29 15:02] VITALS: BMI 27.4
[2020-08-04] VITALS (8 sets, daily range): BP systolic 98–162; BP diastolic 53–86; PULSE 80–102; RESP 18; TEMP 36.1–36.3; O2SAT 95–98
[2020-08-04 08:26] LABS: POC Glucose,Bedside 149 (70-110)
--- NOTE | 2020-08-04 09:06 | HMH.PROC ---
[facility] Procedure Note Procedure Note:: Upper Endoscopy Procedure Report: Esophagogastroduodenoscopy with cold biopsies Endoscopost: Eric Morocho II, MD Referring Physician: Miles Moreira M.D. Date of Procedure: August 04, 2020 Equipment: Olympus GIF 180 standard upper endoscope Sedation: MAC sedation Indications: Mrs. Walker is a 75-year-old female with recent anorexia and weight loss. She also had a change in bowel habits with the onset of constipation. This did occur after her 2 back surgeries and May 2019 and February 2020. She was originally on hydrocodone but then was switched over to tramadol. The patient has lost 5 to 7 pounds. She has had some early satiety, heartburn, reflux and belching. She does take omeprazole but is uncertain whether that is helping. She reports no dysphagia. She does have some ongoing back pain and ongoing constipation. She reports some lower abdominal pain but no epigastric pain. Procedure: Prior to the procedure, a history and physical exam was performed, and patient's medications and allergies were reviewed. The risks, benefits and alternatives of the sedation and procedure were discussed with the patient. All questions were answered and informed consent was obtained. The patient was brought to the procedure room. Patient identification and proposed procedure were verified by the physician and the nurse. The patient was placed in a left lateral decubitus position and the scope was passed under direct vision. Throughout the procedure, the patient's blood pressure, pulse, and oxygen saturations were monitored continuously. The upper GI endoscopy was accomplished without difficulty. The patient tolerated the procedure well. Findings: The scope was passed directly into the upper esophagus and advanced to the third portion of the duodenum. The post bulbar duodenum and duodenal bulb were normal with normal mucosa and conniventes. The scope was withdrawn through a normal duodenal bulb and pylorus into the stomach. There was evidence of mild reactive gastropathy of the antrum. There was evidence of moderate chronic gastritis of the body and fundus with reticular, mosaic pattern to the gastric mucosa in the body and fundus of the stomach. Upon retroflexion there was a very small 1 to 2 cm hiatal hernia. Cold biopsies were taken along the lesser curvature to rule out H. pylori gastritis. The scope was then withdrawn into the esophagus. There was a serrated Z-line and cold biopsies were obtained at the GE junction. There was no evidence of reflux esophagitis, Schatzki's ring or Austin's esophagus. There were tertiary contractions and mild esophageal dysmotility. The remainder of the esophageal mucosa was normal. Impression: 1. Nonerosive GERD with mild esophageal dysmotility and very small sliding hiatal hernia 2. Moderate chronic gastritis?pattern suspicious for H. pylori Plan: I will follow-up the biopsies to rule out H. pylori. I do feel that she has obstipation related symptoms. I would still consider Relistor or Movantik. We will discuss additional treatment options. I will proceed with colonoscopy.
--- NOTE | 2020-08-04 09:09 | P.PN_ITS ---
[facility] Anesthesia Checklist - Patient Identification Patient Identification: Arm Band, Verbal (Name & ) - Structural Data Admitted From: Home Planned Operative Procedure/s: EGD/Colonoscopy Consent for Planned Operative Procedure(s) Verified: Yes Verified Documents: Surgical Consent, History and Physical - NPO Status Verified Time NPO: 00:00 - Additional verifications Fingerstick Blood Glucose: 149 Anesthesia Reactions: No - Airway Assessment C-Spine Mobility Assessed: Yes TMJ Mobility Assessed: Yes Dentition: Good Dentition (missing teeth) - Neurological Assessment Level of Consciousness: Awake, Alert, Appropriate, Follows Commands Hx Seizures: No Numbness or tingling in extremities: No - Anesthesia Plan Anesthesia Risk discussed: Yes Anesthesia Plan: Verified ASA Class: III Anesthesia Type: MAC [facility] History I have reviewed the patient's past medical history: Yes Medical History: Reports:: Diabetes Mellitus Type 2, Gastroesophageal Reflux Disease(GERD), Hyperlipidemia Denies:: Aneurysm, Cancer, Congestive Heart Failure, Chronic Obstructive Pulmonary Disease (COPD), Cerebrovascular Accident, Diabetes Mellitus Type 1, Hypertension, Internal Pacemaker, MRSA, Myocardial Infarction, Seizures *Have you ever received a pneumonia vaccine?: Yes *Have you received a flu vaccine this season?: Yes Other Medical History: Reports: Arthritis, Cataracts. Denies: Hypothyroidism, Thyroid Disease Anesthesia experience/problems:: None Laterality Cases: Bilateral: Carpal Tunnel Release Other Surgeries: Yes: Colonoscopy, Other. No: Pacemaker Amputation: No Fractures: No - *Social History Last grade of school completed: High school graduate Smoking Status: Never smoker Alcohol Intake: never Alcohol Intake Frequency:: other Substance Use Type: denies use *Occupational Status:: retired Housing: house Household Members: spouse *Travel in the last 8 weeks: None Family Hx:: Cancer, Diabetes, Heart Attack
--- NOTE | 2020-08-04 09:36 | HMH.PROC ---
[facility] Procedure Note Procedure Note:: Colonoscopy Procedure Report: Colonoscopy with cold snare polypectomy Endoscopist: Eric Morocho II, MD Referring physician: Miles Moreira M.D. Date of Procedure: August 04, 2020 Equipment: Olympus 180 variable stiffness pediatric colonoscope Sedation: MAC sedation Indication: Mrs. Walker is a 75-year-old female who is here for diagnostic colonoscopy secondary to a change in bowel habits. She does state that this began after her 2 back surgeries in May 2019 and again in February 2020. She was on hydrocodone and was later switched to tramadol. Despite the use of MiraLAX and senna, she continued to have problems with constipation and lower abdominal pain. She reported some bloating. She has had some loss of appetite and a 5 to 7 pound weight loss. She reports no rectal bleeding or family history of colon cancer. Her last colonoscopy was more than 10 years ago. Procedure: Prior to the procedure, a history and physical exam was performed, and patient's medications and allergies were reviewed. The risks, benefits and alternatives of the sedation and procedure were discussed with the patient. All questions were answered and informed consent was obtained. The patient was brought to the procedure room. Patient identification and proposed procedure were verified by the physician and the nurse. The patient was placed in a left lateral decubitus position and the scope was passed under direct vision. Throughout the procedure, the patient's blood pressure, pulse, and oxygen saturations were monitored continuously. The colonoscopy was accomplished without difficulty. The patient tolerated the procedure well. Findings: On digital rectal examination there was normal rectal tone. There were no external hemorrhoids. The colonoscope was introduced through the anal canal to the rectum and advanced to the cecum. The ileocecal valve and appendiceal orifice were identified. The scope was advanced a short distance into the ileum which appeared grossly normal. The scope was then withdrawn into the colon. There were 3 colon polyps (cecum x2 (3 and 7 mm) and rectosigmoid x1 (14 mm)) which were removed via snare polypectomy. The initial polyps were removed via cold snare polypectomy. The latter polyp was removed via snare cautery. There were scattered diverticuli throughout the descending and sigmoid colon (LEFT colon). The rectum itself was normal. Upon retroflexion within the rectum there were grade 1-2 internal hemorrhoids. The preparation was fair throughout with [place] Preparation Score of 6 out of 9. The cecal time was 12 minutes. Impression: 1. Colonic polyps x3 (3, 7 and 14 mm) 2. Left-sided diverticulosis 3. Grade 1-2 internal hemorrhoids Plan: Based upon the size and adenomatous nature of these polyps and the patient's prep, I am going to recommend repeat screening/surveillance colonoscopy again in 3 years. I would encourage a fiber bowel regimen twice daily. I would consider adding Movantik or Relistor. I will discuss the findings with patient and family.
== END 2020-08-04 10:40 | disposition home or self-care (01) ==
LOC: OUTP 07:48
PROVIDERS: PCP Internal Medicine Adolescent Medicine; Visit Provider Internal Medicine Gastroenterology
PROC: 0DJ08ZZ Inspection of Upper Intestinal Tract, Via Natural or Artificial Opening Endoscopic (ICD-10-PCS; CPT 43235; principal; 2020-08-04 09:00)
DX: K21.9 Gastro-esophageal reflux disease without esophagitis (principal); K63.5 Polyp of colon; K57.30 Diverticulosis of large intestine without perforation or abscess without bleeding; K64.0 First degree hemorrhoids; K22.4 Dyskinesia of esophagus; K44.9 Diaphragmatic hernia without obstruction or gangrene; K29.50 Unspecified chronic gastritis without bleeding; R63.0 Anorexia; Z68.27 Body mass index [BMI] 27.0-27.9, adult; E11.9 Type 2 diabetes mellitus without complications; E78.5 Hyperlipidemia, unspecified; Z87.39 Personal history of other diseases of the musculoskeletal system and connective tissue
CPT/HCPCS: 43239; 45385; 82962; 88305

== ENCOUNTER → 2020-10-06 15:08 | Outpatient (CLI) | payer MEDICARE, SELFPAY | PROVIDERS: PCP Internal Medicine Adolescent Medicine; Visit Provider Internal Medicine Adolescent Medicine | DX: Z71.3 Dietary counseling and surveillance (principal); E11.9 Type 2 diabetes mellitus without complications; Z68.28 Body mass index [BMI] 28.0-28.9, adult; Z79.4 Long term (current) use of insulin | CPT/HCPCS: 97802 ==

== ENCOUNTER → 2020-10-22 09:56 | Outpatient (CLI) | payer MEDICARE, SELFPAY ==
--- NOTE | 2020-10-22 10:04 | MR_ITS ---
PROCEDURE: MR LUMBAR SPINE WO/W CON CLINICAL INDICATION: LUMBAR SPINE PAIN HX 2 BACK SURGERIES MAY 2020. RT SIDED LBP. TINGLING DOWN RT LEG ON LATERAL CALF. NO INJURY. COMPARISON: MR MR LUMBAR SPINE WO CON from 12/31/[address] LUMBAR SPINE WO CON from 04/28/2020 TECHNIQUE: Standard multiplanar multiecho sequences are performed without and with contrast. 3-D MIP and myelographic images are also rendered and reviewed FINDINGS: Spinal cord ends at the L2 level. T10-T11: Degenerative disc disease with bulging disc. Mild wedging of T11. Not significantly changed. T11-T12: Degenerative disc disease with mild facet hypertrophic change. T12-L1: Degenerative disc disease with mild bulging disc L1-L2: Unremarkable L2-L3: Mild bulging disc unchanged L3-L4: Degenerative disc disease with endplate irregularity and facet and ligamentum hypertrophy. Hemangioma of L3. Facet and ligamentum hypertrophy with mild bilateral lateral recess and foraminal narrowing unchanged. L4-5: Degenerative disc disease with type 1 endplate changes with bulging disc. There is small broad-based central left paracentral and left lateral disc protrusion. There is facet and ligamentum hypertrophy. There is severe right-sided foraminal narrowing from the facet and ligamentum hypertrophy and bulging disc. There has been an interval laminectomy on the left with improvement in the canal stenosis and left lateral recess and foraminal narrowing. L5-S1: There is degenerative disc disease. Type 1 endplate changes are present with decreased T1 and increased T2 signal along the inferior aspect of L5 and superior aspect of S1. Bulging disc is present at this level with facet and ligamentum hypertrophy with bilateral lateral recess narrowing and foraminal narrowing which appears a worse than when compared to the previous exam. There is anterolisthesis of L5 on S1 of approximately 5 mm. Postsurgical changes are present at L5. There is prominence of the paravertebral soft tissues posterior to the L5 vertebral body which is hypointense on T1 and hypo for intense on T2 and demonstrates contrast enhancement. There is also enhancement of the soft tissues in the surgical bed at L5. No abnormal fluid collections are evident. IMPRESSION: 1. Abnormal MRI of the lumbar spine with multilevel lumbar spondylosis. Please see above for detailed description at each level. 2. L4-5: Degenerative disc disease with type 1 endplate changes with bulging disc. There is small broad-based central left paracentral and left lateral disc protrusion. There is facet and ligamentum hypertrophy. There is severe right-sided foraminal narrowing from the facet and ligamentum hypertrophy and bulging disc. There has been an interval laminectomy on the left with improvement in the canal stenosis and left lateral recess and foraminal narrowing. 3. L5-S1: There is degenerative disc disease. Type 1 endplate changes are present with decreased T1 and increased T2 signal along the inferior aspect of L5 and superior aspect of S1. Bulging disc is present at this level with facet and ligamentum hypertrophy with bilateral lateral recess narrowing and foraminal narrowing which appears a worse than when compared to the previous exam. There is anterolisthesis of L5 on S1 of approximately 5 mm. Postsurgical changes are present at L5. 4. There is prominence of the paravertebral soft tissues posterior to the L5 vertebral body which is hypointense on T1 and hypo for intense on T2 and demonstrates contrast enhancement. There is also enhancement of the soft tissues in the surgical bed at L5 posterior to the spinal canal. No abnormal fluid collections are evident. This abnormal soft tissue intensity and enhancement could be related
== END ==
PROVIDERS: PCP Internal Medicine Adolescent Medicine; Visit Provider Orthopaedic Surgery
DX: M54.5 Low back pain (principal)
CPT/HCPCS: 72158; 76376; A9576

== ENCOUNTER → 2020-11-10 10:35 | Outpatient (POV) | payer MEDICARE, SELFPAY | PROVIDERS: Visit Provider Nurse Practitioner Family | DX: Z00.00 Encounter for general adult medical examination without abnormal findings (principal) ==

== ENCOUNTER → 2021-02-03 16:27 | Outpatient (CLI) | payer MEDICARE, SELFPAY ==
[2021-02-03 16:46] LABS: Basophils # 0.1 K/mm3 (0-0.2); Basophils % 0.6 % (0.1-2.0); Eosinophils # 0.3 K/mm3 (0.0-0.4); Eosinophils % 3.3 % (0.1-12.0); Hematocrit 37.3 % (37.0-47.0); Hemoglobin 12.5 g/dL (12.2-16.2); Lymphocytes # 3.6 K/mm3 (0.7-4.5); Lymphocytes % 41.5 % (10-50); Mean Corpuscular HGB Conc 33.6 g/dL (31.8-35.4); Mean Corpuscular Hemoglobin 30.7 pg (27.0-31.2); Mean Corpuscular Volume 91.4 fl (81-99); Mean Platelet Volume 8.5 fl (7.4-10.4); Monocytes # 0.6 K/mm3 (0.1-1.0); Monocytes % 6.6 % (1.7-9.3); Neutrophils # 4.1 K/mm3 (1.8-7.8); Platelet Count 261 K/mm3 (142-424); Red Blood Count 4.08 M/mm3 (4.20-5.40); Red Cell Distribution Width 12.7 % (11.5-17.5); White Blood Count 8.6 K/mm3 (4.8-10.8)
[2021-02-03 17:21] LABS: Hemoglobin A1C 7.2 % (4.0-6.0)
[2021-02-03 17:24] LABS: Chloride 103 mmol/L (98-107); Potassium 4.4 mmoL/L (3.5-5.1); Sodium 140 mmol/L (136-145)
[2021-02-03 17:26] LABS: Alanine Aminotransferase 13 U/L (12-78); Alkaline Phosphatase 100 U/L (38-126); Aspartate Amino Transferase 22 U/L (14-36); Bilirubin,Total 0.3 mg/dl (0.2-1.3); Blood Urea Nitrogen 18 mg/dl (7-17); Estimated Glomerular Filt Rate 82 ml/min (>60); GFR (African American) 99 ML/MIN (>60)
[2021-02-03 17:27] LABS: Albumin Level 4.4 g/dl (3.5-5.0); Albumin/Globulin Ratio 1.6 (1.1-1.8); Anion Gap 11.4 mEq/L (5-15); Calcium 9.3 mg/dl (8.4-10.2); Carbon Dioxide 30 mmol/L (22.0-30.0); Chol/HDL Ratio 3.8 (1-3.5); Cholesterol 179 mg/dl (140-200); Globulin 2.8 g/dL (1.3-3.2); HDL Cholesterol 47 mg/dl (40-60); Total Protein,Serum 7.2 g/dl (6.3-8.2); Triglycerides 220 mg/dl (30-150); VLDL Cholesterol 44 mg/dL (0-40)
[2021-02-03 17:38] LABS: Direct LDL Cholesterol 79.16 mg/dL (100-129)
[2021-02-03 17:59] LABS: Thyroid Stimulating Hormone 1.57 uIU/mL (0.465-4.68)
[2021-02-03 18:09] LABS: Glucose 44 mg/dl (74-100)
== END ==
PROVIDERS: Visit Provider Internal Medicine Adolescent Medicine
DX: E11.9 Type 2 diabetes mellitus without complications (principal); E78.2 Mixed hyperlipidemia; R53.83 Other fatigue; Z79.4 Long term (current) use of insulin
CPT/HCPCS: 36415; 80053; 80061; 83036; 84443; 85025

== ENCOUNTER → 2021-02-10 10:22 | Outpatient (CLI) | payer MEDICARE, SELFPAY ==
--- NOTE | 2021-02-10 10:25 | MM_ITS ---
PROCEDURE INFORMATION: Exam: MG Screening 3D Mammography Exam date and time: 02/10/2021 10:25 AM Age: 75 years old Clinical indication: Encounter for screening mammogram for malignant neoplasm of breast TECHNIQUE: Imaging protocol: Screening tomosynthesis and 2D mammography including computer-aided detection (CAD) when performed. COMPARISON: 1. MG MM DIG MAMM BI DX W/CAD 11/22/2019 9:37 AM 2. MG SCBI MM Dig screening mamm BI w/CAD 09/25/2018 8:38 AM FINDINGS: MAMMOGRAPHY: Breast composition: The breast tissue is composed of scattered areas of fibroglandular density. Mass: None. Architectural distortion: None. Calcifications: No suspicious calcifications. Asymmetric density: None. Skin thickening: None. Axillary adenopathy: None. IMPRESSION: No mammographic evidence of malignancy. Annual screening is recommended unless otherwise clinically indicated. ASSESSMENT: BI-RADS Category 1: Negative
== END ==
PROVIDERS: PCP Internal Medicine Adolescent Medicine; Visit Provider Internal Medicine Adolescent Medicine
DX: Z12.31 Encounter for screening mammogram for malignant neoplasm of breast (principal)
CPT/HCPCS: 77063; 77067

== ENCOUNTER → 2021-02-17 14:33 | Outpatient (CLI) | payer MEDICARE, SELFPAY ==
--- NOTE | 2021-02-17 | CA_ITS ---
APPROVED REPORT Bilateral Lower Extremity Venous Study for DVT. [employer] Interpreter: TOMMY Indications Lower Extremity Edema: Right DM, HLD. Patient denies trauma. Patient states she has right LE edema with a tightness that has been going on for several months. Vein Imaging CFV (R): compressive, spontaneous, phasic, augmentation FEM (R): compressive, spontaneous, phasic, augmentation POP (R): compressive, spontaneous, phasic, augmentation PTV (R): Compressible GSV (R): compressive, spontaneous, phasic, augmentation Peroneals (R):Compressible GAS (R): Compressible CFV (L): compressive, spontaneous, phasic, augmentation FEM (L): compressive, spontaneous, phasic, augmentation POP (L): compressive, spontaneous, phasic, augmentation PTV (L): Compressible GSV (L): compressive, spontaneous, phasic, augmentation Peroneals (L):Compressible GAS (L): Compressible Findings No evidence of DVT or superficial thrombophlebitis in the veins scanned of the right lower extremity. No evidence of DVT or superficial thrombophlebitis in the veins scanned of the left lower extremity. Conclusion No evidence of DVT or superficial thrombophlebitis in the veins scanned of the right lower extremity. No evidence of DVT or superficial thrombophlebitis in the veins scanned of the left lower extremity. Electronically signed by : Brent Hall MD 02/17/2021 17:38:34
== END ==
PROVIDERS: PCP Internal Medicine Adolescent Medicine; Visit Provider Internal Medicine Adolescent Medicine
DX: M79.604 Pain in right leg (principal)
CPT/HCPCS: 93970

== ENCOUNTER → 2021-06-01 13:18 | Outpatient (CLI) | payer MEDICARE, SELFPAY ==
--- NOTE | 2021-06-02 14:08 | PC.NURSE ---
relayed pos result
== END ==
PROVIDERS: PCP Internal Medicine Adolescent Medicine; Visit Provider Nurse Practitioner
DX: Z20.822 Contact with and (suspected) exposure to COVID-19 (principal); U07.1 COVID-19
CPT/HCPCS: C9803; U0003; U0005

== ENCOUNTER → 2021-09-04 14:54 | Outpatient (CLI) | payer MEDICARE, SELFPAY ==
--- NOTE | 2021-09-04 14:57 | XR_ITS ---
PROCEDURE: XR CHEST 2V CLINICAL HISTORY: COUGH COMPARISON: CT CT ABDOMEN PELVIS WO CON from 12/22/[address] LUMBAR SPINE WO CON from 04/28/2020 FINDINGS: The cardiomediastinal silhouette and pulmonary vascularity are within normal limits. No lobar consolidation or collapse. Coronary artery calcification noted. Mild thoracic scoliosis convex right. Degenerative changes thoracic spine with mild kyphosis. Chronic wedge compression changes are present at T11 No acute bony abnormalities. IMPRESSION: No acute findings. Dictated by: Brent Hall MD 09/04/2021 15:08 Brent Hall MD in [place] 09/04/2021 15:08
== END ==
PROVIDERS: PCP Internal Medicine Adolescent Medicine; Visit Provider Internal Medicine Adolescent Medicine
DX: R05.9 Cough, unspecified (principal)
CPT/HCPCS: 71046

== ENCOUNTER → 2021-10-09 12:25 | Outpatient (CLI) | payer MEDICARE, SELFPAY ==
--- NOTE | 2021-10-09 12:45 | CT_ITS ---
FINAL REPORT CLINICAL HISTORY: COUGH FINDINGS: Axial CT images of the chest were obtained with contrast. Coronal reformatted images were also obtained. This study was performed with techniques to keep radiation doses as low as reasonably achievable, (ALARA). Individualized dose reduction techniques using automated exposure control or adjustment of mA and/or KV according to the patient's size were employed. There are multiple bilateral thyroid nodules favoring a multinodular goiter.There are borderline size mediastinal and bilateral hilar lymph nodes.No axillary mass or adenopathy is identified. On lung window images, no pulmonary mass or dominant pulmonary nodule is identified. There are bilateral areas of mosaic perfusion with probable air trapping which may represent small airways disease. There is mild bibasilar scarring. Limited images of the upper abdomen reveal no mass or localized inflammatory process. IMPRESSION: Multiple bilateral thyroid nodules favor a multi nodular goiter, thyroid ultrasound could further evaluate. Bilateral areas of mosaic perfusion with probable air trapping, may represent small airways disease. Reviewed, Interpreted and Dictated by Reji Ballard III, MD Transcribed by Marine Mtz Authenticated by Reji Ballard III, MD on 10/09/2021 02:41:[address] [facility]
[2021-10-09 13:11] LABS: Blood Urea Nitrogen 15 mg/dl (7-17); Estimated Glomerular Filt Rate 82 ml/min (>60); GFR (African American) 99 ML/MIN (>60)
== END ==
PROVIDERS: PCP Internal Medicine Adolescent Medicine; Visit Provider Internal Medicine Adolescent Medicine
DX: R05.9 Cough, unspecified (principal)
CPT/HCPCS: 36415; 71260; 82565; 84520; Q9967

== ENCOUNTER → 2022-02-16 09:51 | Outpatient (CLI) | payer MEDICARE, SELFPAY ==
--- NOTE | 2022-02-16 09:57 | MM_ITS ---
PROCEDURE INFORMATION: Exam: MG Bilateral Screening 3D Mammography Exam date and time: 02/16/2022 10:04 AM Age: 76 years old Clinical indication: Screening examination. No family history of breast cancer. TECHNIQUE: Imaging protocol: Bilateral Screening tomosynthesis and 2D mammography including computer-aided detection (CAD) when performed. COMPARISON: 1. MG MM DIG SCREENING MAMM BI W/CAD 02/10/2021 10:25 AM 2. MG MM DIG MAMM BI DX W/CAD 11/22/2019 9:37 AM 3. MG SCBI MM Dig screening mamm BI w/CAD 09/25/2018 8:38 AM 4. MG DXLT MM Dig mamm DX unilat LT CAD 10/04/2017 1:17 PM FINDINGS: MAMMOGRAPHY: Breast composition: There are scattered areas of fibroglandular density. Mass: None. Architectural distortion: None. Calcifications: No suspicious calcifications. Asymmetric density: None. Skin thickening: None. Axillary adenopathy: None. Other: Bilateral biopsy clips. IMPRESSION: No mammographic evidence of malignancy. Annual screening is recommended unless otherwise clinically indicated. ASSESSMENT: BI-RADS Category 2: Benign
== END ==
PROVIDERS: PCP Internal Medicine Adolescent Medicine; Visit Provider Internal Medicine Adolescent Medicine
DX: Z12.31 Encounter for screening mammogram for malignant neoplasm of breast (principal)
CPT/HCPCS: 77063; 77067

== ENCOUNTER 2022-02-25 08:27 | Emergency (ER) | payer MEDICARE, SELFPAY ==
[2022-02-25 08:31] VITALS: BP 140/78; PULSE 86; RESP 17; TEMP 36.8; O2SAT 95; BMI 28.8
--- NOTE | 2022-02-25 08:46 | XR_ITS ---
FINAL REPORT CLINICAL HISTORY: dorsal foot/anterior ankle pain, no known injury FINDINGS: LEFT FOOT: Three views of the left foot were obtained. There is no acute fracture or dislocation. There are postoperative changes again seen at the mid 2nd metatarsal. There is a hallux valgus deformity seen. There are mild and moderate degenerative changes. There is medial angulation of the 4th and 5th digits. There is lateral angulation of the 2nd digit. There are presumed postoperative changes at the distal aspect of the 2nd through 5th proximal phalanges. There is no soft tissue abnormality. IMPRESSION: Stable postoperative and degenerative changes with no acute bony abnormality. Reviewed, Interpreted and Dictated by Reji Ballard III, MD Transcribed by Shannon Kraus Authenticated and [facility]
--- NOTE | 2022-02-25 08:47 | XR_ITS ---
FINAL REPORT CLINICAL HISTORY: dorsal foot/anterior ankle pain, no known injury FINDINGS: LEFT ANKLE: Three views of the left ankle were obtained. There is no acute fracture or dislocation. There is mild degenerative change. There is no soft tissue abnormality. IMPRESSION: No acute bony abnormality. Reviewed, Interpreted and Dictated by Reji Ballard III, MD Transcribed by Shannon Kraus Authenticated and [facility]
--- NOTE | 2022-02-25 09:05 | HMH.EDUTC ---
[facility] [place] Impression: Left leg pain Disposition: Home, Self-Care Condition on Discharge: Good Instructions: DI for Leg Pain Additional Instructions: Rest the extremity, Elevate the extremity as tolerated while you are resting. Follow up with Dr. Gross (orthopedics) if you keep having these symptoms. I put in a referral but you need to call his office and schedule an appointment. Follow up with your regular doctor. GO TO THE ER FOR ANY WORSENING SYMPTOMS Referrals: Jorden Resendez MD [Primary Care Provider] - Fred Gross MD [Staff Physician] - Time of Disposition: 10:01 Medical Decision Making - Medical Records Medical records reviewed: No: I reviewed the patient's medical records. - Andres Inquiry Pt receiving controlled substance: No Vital Signs: 02/25/22 08:31 02/25/22 10:02 Temperature 98.2 F 98.2 F Temperature Source Oral Pulse Rate 86 Pulse Rate [Left Radial] 86 Respiratory Rate 17 17 Blood Pressure 140/78 Blood Pressure [Right Arm] 140/78 Blood Pressure Mean [Right Arm] 98 02 Sat by Pulse Oximetry 95 Orders (Tests/Meds): ED MEDICATIONS Discontinued Medications Generic Name Dose Route Start Last Admin Trade Name Freq PRN Reason Stop Dose Admin Ketorolac Tromethamine 30 mg 02/25/22 09:47 02/25/22 09:51 Ketorolac 60mg/2ml Vial IM 02/25/22 09:48 30 mg ONCE ONE Administration - US Data US Images: Lower Extremity ED US Reviewed: Yes: I have reviewed the patient's US results Preliminary Findings: Normal/NAD [facility] [place] - General Stated complaint: lt leg pain Time Seen by Provider: 02/25/22 09:05 Source of Information: Patient Description of Symptoms (Recalled from Triage Doc. by RN): patient comes in today for left ankle pain. patient states that a sharp pain began in the middle of the night. states that she took a pain pill, the pain went away but came back. patient states that she did not fall or remember doing anything to hurt her ankle. HEENT Symptoms (Recalled from RN notes): No Resp Symptoms (Recalled from RN notes): No Skin Symptoms (Recalled from RN notes): No MS Symptoms (Recalled from RN notes): Yes Functional Status (Recalled from RN notes): wnl - History of Present Illness Provider Complaint: She states that since last night she has had left lower leg pain. The pain is located on the lateral area of her left leg, just above the ankle. She denies any known injury. She denies any chest pain, cough, or history of blood clots. - Related Data Home Medications Medication Instructions Recorded Confirmed acetaminophen 650 mg 650 mg PO ONCE 10/04/17 08/04/20 tablet,extended release aspirin 81 mg tablet,delayed 81 mg PO ONCE 10/04/17 08/04/20 release atorvastatin 40 mg tablet 40 mg PO DAILY 90 Days #90 tab 10/04/17 08/04/20 estradiol 1 g VAGINAL ONCE 10/04/17 08/04/20 methenamine hippurate 1 gram tablet 1 g PO DAILY 30 Days #30 tab 10/04/17 08/04/20 nitrofurantoin 100 mg PO DAILY 11/18/19 08/04/20 monohydrate/macrocrystals 100 mg capsule insulin aspart U-100 100 unit/mL 1 sliding scale dose SQ ONCE ml 12/06/19 08/04/20 subcutaneous solution insulin degludec 100 unit/mL (3 22 unit SUB-Q ONCE ml 12/06/19 08/04/20 mL) subcutaneous pen Fluticasone Propionate [Flonase 1 spray INTRANASAL QDAY 07/29/20 08/04/20 Allergy Relief NS] Nabumetone 500 mg PO BID 07/29/20 08/04/20 Previous Rx's Medication Instructions Recorded Hydrocod/Acet 5/325 mg [[place] 1 tab PO Q6HP PRN #10 tab 12/22/19 5/325mg tablet] Ondansetron [Zofran 4mg ODT] 4 mg PO TIDP PRN #10 tab.rapdis 12/22/19 Allergies Allergy/AdvReac Type Severity Reaction Status Date / Time hydromorphone [From Dilaudid] AdvReac Intermediate Vomiting Verified 02/25/22 08:49 - Worker's Comp Is this a Worker's Comp case?: No [facility] History - Hepatitis A Screen Attestation statement:: This patient has been screened for Hepatitis
--- NOTE | 2022-02-25 09:12 | CA_ITS ---
FINAL REPORT TECHNIQUE: Color Doppler, duplex Doppler and compression sonography of the left lower extremity deep venous systems was performed. CLINICAL HISTORY: swelling in LLE FINDINGS: There is no evidence of deep venous thrombosis from the level of the groin to the calf. The veins are patent and compressible. IMPRESSION: No evidence of deep venous thrombosis left lower extremity. Reviewed, Interpreted and Dictated by Reji Ballard III, MD Transcribed by Man Leon Authenticated and [facility]
[2022-02-25 10:02] VITALS: BP 140/78; PULSE 86; RESP 17; TEMP 36.8
== END 2022-02-25 10:08 | disposition home or self-care (01) ==
PROVIDERS: Emergency Provider Nurse Practitioner Family; PCP Internal Medicine Adolescent Medicine
DX: M25.572 Pain in left ankle and joints of left foot (principal); M79.662 Pain in left lower leg; I83.92 Asymptomatic varicose veins of left lower extremity; K21.9 Gastro-esophageal reflux disease without esophagitis; E78.5 Hyperlipidemia, unspecified; E11.9 Type 2 diabetes mellitus without complications; M19.90 Unspecified osteoarthritis, unspecified site; H26.9 Unspecified cataract; Z79.1 Long term (current) use of non-steroidal anti-inflammatories (NSAID); Z79.4 Long term (current) use of insulin; Z79.51 Long term (current) use of inhaled steroids; Z79.82 Long term (current) use of aspirin; Z79.890 Hormone replacement therapy; Z79.899 Other long term (current) drug therapy; Z88.5 Allergy status to narcotic agent; Z88.8 Allergy status to other drugs, medicaments and biological substances
CPT/HCPCS: 73610; 73630; 93971; 96372; 99213; G0463

== ENCOUNTER → 2022-05-03 09:53 | Outpatient (POV) | payer MEDICARE, SELFPAY ==
[2022-05-03 10:28] VITALS: BP 162/78; PULSE 96; RESP 18; TEMP 36.6; O2SAT 96; BMI 28.7
--- NOTE | 2022-05-03 16:36 | HMH.PMCON ---
Assessment and Plan (1) Degenerative joint disease (DJD) of lumbar spine Status: Acute Category: Medical Code(s): M47.816 - Spondylosis without myelopathy or radiculopathy, lumbar region (2) Lumbar radiculopathy Status: Acute Category: Medical Code(s): M54.16 - Radiculopathy, lumbar region (3) Bilateral sacroiliitis Status: Acute Category: Medical Code(s): M46.1 - Sacroiliitis, not elsewhere classified - Assessment and plan all Dx Assessment and Plan for all problems:: Patient has worsening low back pain and bilateral SI pain. She had extreme point tenderness along her bilateral SIJ's and positive bilateral Dina's, Damari's, Gaenslen's, compression, distraction test during today's exam. I have discussed with the patient regarding having a bilateral SI injections. Risk and benefits were discussed with the patient. She would like to proceed forward with these injections. Patient does have a MRI of her lumbar spine on file from 2020. Imaging stated multiple levels of ligamentum flavum hypertrophy. I did discuss with the patient that she could possibly be a candidate for the MILD procedure. Patient was given educational handout on this procedure at today's visit. I also discussed with the patient regarding signing a release so we can get records from her neurosurgeon in [place]. I will also prescribe the patient a compounding cream at today's visit. Patient is a well-controlled diabetic. I have counseled her regarding taking her diabetes medication the morning of her injections and explained the steroid will increase her blood sugar. I will schedule the patient for bilateral SI injections at today's visit. Patient has been instructed to contact the clinic with any concerns before the next appointment. Dr. Steen has reviewed this note and agrees with this plan of care. This note was dictated using voice recognition software and make contain errors or omissions. HPI - Data of Consult Patient: new to practice Consult date: 05/03/22 Requesting Physician: Frannie Morel APRN Primary Care Provider: Jorden Resendez MD - Consult Narrative Reason for consult: Bilateral SI pain, low back pain History of present illness: Ms. Walker is a 77 year old female who presents today as a new patient. She is a referral from Glynn Henriquez. Patient states her pain today is a 3 out of 10. She states her pain is all in her low back and right glutes. She denies any new trauma. She states that she has chronic back pain and has previously saw a pain clinic in [place]. Patient states that this pain around her right gluteal area started to be more bothersome in January/February. She describes this pain as a ache, throbbing sensation that is worse with activity. She states she has had a laminectomy and discectomy in the past. She states she has also had a RFA of her lumbar spine. She recently had a MRI of her lumbar spine and a CT scan of her lumbar spine. Patient has seen neurosurgery at [facility]/Tan's office in [place]. She states she is scheduled to see them again here soon for follow-up. She is currently being prescribed gabapentin 300 mg 4 times a day by Dr. Resendez. She denies any side effects from this medication. She states this medication is adequately helping manage her pain. Her Andres is [phone]. It has been reviewed and appropriate. CC: Frannie Morel APRN [facility] History I have reviewed the patient's past medical history: Yes Medical History: Reports:: Diabetes Mellitus Type 2, Gastroesophageal Reflux Disease(GERD), Hyperlipidemia, Hypertension Denies:: Aneurysm, Cancer, Congestive Heart Failure, Chronic Obstructive Pulmonary Disease (COPD), Cerebrovascular Accident, Diabetes Mellitus Type 1, Internal Pacemaker, MRSA, Myocardial Infarction, Seizures *Have you ever received a pneumonia vaccine?: Yes *Have you received a flu vaccine this season?: Yes Other Medical History: Reports: Arthritis, Cataracts. Denies: Hypothyroid
== END ==
PROVIDERS: PCP Internal Medicine Adolescent Medicine; Visit Provider Nurse Practitioner Family
DX: M51.16 Intervertebral disc disorders with radiculopathy, lumbar region (principal); M47.26 Other spondylosis with radiculopathy, lumbar region; M46.1 Sacroiliitis, not elsewhere classified
CPT/HCPCS: 99202; G0463

== ENCOUNTER 2022-05-07 08:31 | Day surgery (SDC) | payer MEDICARE, SELFPAY ==
[2022-05-07 09:17] VITALS: BP 172/78; PULSE 95; TEMP 36.7; O2SAT 96; BMI 28.8
[2022-05-07 09:26] VITALS: BP 138/73; PULSE 78; RESP 18; O2SAT 94
--- NOTE | 2022-05-07 09:57 | P.PCN_ITS ---
- Procedure Date: 05/07/22 Time: 09:00 Anesthesiologist:: Veto Austin CRNA Complications:: None Pre-procedure Diagnosis:: Bilateral sacroiliitis Post-procedure Diagnosis:: Same Indications for Procedure:: This patient is a pleasant 77-year-old female that comes our clinic today with bilateral point tenderness over the SI joints. Patient states sitting for any length of time increases pain. Standing and walking for any length of time increases pain. She also describes transition from sitting to standing increases pain significantly. She rates her pain 8/10. Procedure Details:: Procedure: Bilateral sacroiliac joint injections under fluoroscopy Informed consent was obtained and the risks and benefits of the procedure were explained to the patient.~ The patient was taken to the procedure room and noninvasive monitors were placed including a noninvasive blood pressure cuff and pulse oximeter.~ The patient was placed prone on the procedure table. Both hips were cleansed using Betadine as a cleansing solution. C-arm fluoroscopy was used to view the right sacroiliac joint.~ The skin and subcutaneous tissues were anesthetized using lidocaine 1.5% and a 25-gauge needle.~ After this, a 22-gauge spinal needle was inserted under fluoroscopic guidance into the inferior aspect of the right sacroiliac joint.~ Omnipaque dye was injected and good spread was seen throughout the joint.~ After this, approximately 5 mL of bupivacaine, 0.25% and Depo-Medrol, 40 mg was incrementally injected into the right sacroiliac joint. We then moved to the left sacroiliac joint.~ The skin and subcutaneous tissues were anesthetized using lidocaine 1.5% and a 25-gauge needle.~ After this, a 22- gauge spinal needle was inserted under fluoroscopic guidance into the inferior aspect of the left sacroiliac joint.~ Omnipaque dye was injected and good spread was seen throughout the joint. After this, approximately 5 mL of bupivacaine, 0.25% and Depo-Medrol, 40 mg was incrementally injected into the left sacroiliac joint.~ The patient tolerated the procedure well with no complications. The patient was observed in the Pain Clinic and then was discharged home neur ologically intact. Plan and Disposition:: Patient was discharged without incident.
== END 2022-05-07 09:27 | disposition home or self-care (01) ==
LOC: SC.PAINP 08:33
PROVIDERS: PCP Internal Medicine Adolescent Medicine; Visit Provider Nurse Anesthetist, Certified Registered
DX: M46.1 Sacroiliitis, not elsewhere classified (principal)
CPT/HCPCS: 27096; G0260; J1040

== ENCOUNTER → 2022-05-19 10:25 | Outpatient (POV) | payer MEDICARE, SELFPAY ==
[2022-05-19 10:42] VITALS: BP 150/73; PULSE 91; RESP 20; TEMP 36.7; O2SAT 95; BMI 28.0
--- NOTE | 2022-05-19 17:49 | EXP.PAIN.SOA ---
[facility] Pain Management SOAP Note Subjective:: Patient is a pleasant 77-year-old female who presents today for follow-up of bilateral SI injections on 05/07/2022. We are currently treating the patient for degenerative disc disease of lumbar spine with lumbar radiculopathy symptoms, bilateral sacroiliitis, neurogenic claudication, lumbar spinal stenosis. Patient states that she has had 60 to 70% improvement following this injection and feels like she still is getting some relief. Today she rates her pain a 3 out of 10 and states it is all in her low back. She states this is a aching, throbbing sensation. Patient denies any new trauma or injury to the site. Patient denies any change in the location or type of pain she experiences. Patient has a history of laminectomy and discectomy. She also had a previous lumbar RFA. She has been to see neurosurgery in [place]. She is currently seeing Dr. Henriquez who sent her as a referral patient. Patient states that neurosurgery stated that she could benefits from a surgical procedure due to her severe stenosis in her lumbar spine however they wanted the patient to have injections first and see if this provided relief of her symptoms. patient states she has minimal to no pain while in a seated position and states that she does have pain with increased activity. She states she does have to lean over her shopping cart when at the grocery store to provide relief of her symptoms. Patient is currently managed with gabapentin 300 mg 4 times a day and temazepam 15 mg daily by Jorden Resendez. Patient denies any side effects from these medications. She states these medications do help manage her pain. She is also prescribed a compounding cream from our office that she states provides some improvement of her symptoms. Patient is a diabetic however she states it is well controlled with medication. Her Andres is [phone]. It has been reviewed and appropriate. Review of Systems: General: No recent weight changes, no fever, no sleep disturbances Respiratory: No cough, no shortness of air, no recurring pulmonary infections Cardiovascular/peripheral vascular: No chest pain, no palpitations, no edema, no shortness of breath Gastrointestinal: No new onset incontinence, normal bowel movements reported Genitourinary: No new onset incontinence Musculoskeletal: Low back pain Psychiatric: [Normal mood/affect] Neurological: [Denies weakness in extremities], [denies balance issues] Objective:: Physical Exam: General: Alert and oriented x3, no acute distress, pleasant and cooperative Lungs: Respirations even and unlabored, symmetrical chest expansion Eyes: PERRL Musculoskeletal: Flexion and extension of lumbar [spine] somewhat guarded secondary to pain, [antalgic gait noted] Neurological: Speech clear, no gross sensory deficit CT lumbar without contrast [facility] 04/29/2022 Findings: Mild diffuse levo curvature of lumbar spine.? There is a grade 1 anterior listhesis of L5 on S1.? There is a defect in the left pars interarticularis.? There are possible postsurgical changes at this level.? There is no compression fracture.? There is moderate to severe anterior marginal osteophyte spurring.? There is a lucent lesion in the L3 vertebral body that may represent a hemangioma.? T11-T12 and T12-L1: Mild disc bulges.? No central canal narrowing or neural foraminal narrowing.? L1-L2: Mild disc bulge.? No central canal stenosis no neuroforaminal stenosis.? L 2 through 3: There is broad-based disc bulge/protrusion.? No central Canal stenosis.? There is mild-moderate bilateral neural foraminal stenosis.? L3-L4: There is diffuse disc protrusion, mild endplate spurring and mild facet arthropathy.? Mild central canal stenosis.? Moderate bilateral neuroforaminal stenosis.? L4-5: There is diffuse disc protrusion and endplate spurring.? There is a prior laminectomy.? No central canal stenosis.? There is severe bilateral neuroforaminal stenosis.? L5-S1: There
== END ==
PROVIDERS: PCP Internal Medicine Adolescent Medicine; Visit Provider Nurse Practitioner Family
DX: M51.16 Intervertebral disc disorders with radiculopathy, lumbar region (principal); M48.062 Spinal stenosis, lumbar region with neurogenic claudication; M46.1 Sacroiliitis, not elsewhere classified
CPT/HCPCS: 99212; G0463

== ENCOUNTER 2022-06-11 13:12 | Day surgery (SDC) | payer MEDICARE, SELFPAY ==
[2022-06-11 13:24] VITALS: BP 167/68; PULSE 90; RESP 18; TEMP 36.8; O2SAT 98; BMI 28.5
[2022-06-11 13:39] VITALS: BP 162/75; PULSE 90; RESP 18; O2SAT 98
[2022-06-11 13:40] VITALS: BP 162/75; PULSE 92; RESP 18
[2022-06-11 13:55] VITALS: BP 146/92; PULSE 84; RESP 20; O2SAT 98
--- NOTE | 2022-06-11 14:04 | EXP.PAIN.PRO ---
Procedure Date: 06/11/22 Time: 14:04 Anesthesiologist:: Jimmy Steen MD Complications:: None Pre-procedure Diagnosis:: Degenerative disc disease of lumbar spine with lumbar radiculopathy symptoms and lumbar spinal stenosis with neurogenic claudication symptoms and postlaminectomy syndrome lumbar spine Post-procedure Diagnosis:: Same Indications for Procedure:: This patient is a pleasant 77-year-old white female who had previous laminectomy at L4-L5 and L5-S1. She has increasing low back pain and lumbar radiculopathy symptoms with lumbar spinal stenosis at L3-L4 and neurogenic claudication symptoms. We will do a lumbar epidural steroid injection with epidurogram to assess this level of stenosis and candidacy for minimally invasive lumbar decompression. Procedure Details:: Informed consent was obtained and the risk and benefits of the procedure was explained to the patient. The patient was taken to the procedure room. The patient was placed prone on the procedure table. The patient was prepped and draped in sterile fashion. C-arm fluoroscopy was used to view the lumbar spine. Skin and subcutaneous tissues were anesthetized using lidocaine. I placed an 18-gauge epidural needle and advanced into the L3-L4 interspace using fluoroscopic guidance and [id number] to air. After confirmation of needle placement in the epidural space with dye I injected 2 mL of lidocaine 1.5% with Depo-Medrol 80 mg. Patient tolerated the procedure well with no complications. Plan and Disposition:: Based on epidurogram this patient does have significant stenosis at L3-L4 which is above the level of her laminectomy. We will seek approval and plan on minimally invasive lumbar decompression bilateral L3-L4.
== END 2022-06-11 13:55 | disposition home or self-care (01) ==
PROVIDERS: PCP Nurse Practitioner Family; Visit Provider Anesthesiology
DX: M51.16 Intervertebral disc disorders with radiculopathy, lumbar region (principal); M48.062 Spinal stenosis, lumbar region with neurogenic claudication; M96.1 Postlaminectomy syndrome, not elsewhere classified
CPT/HCPCS: 62323; J1040; Q9966

== ENCOUNTER → 2022-07-16 12:56 | Outpatient (POV) | payer MEDICARE, SELFPAY ==
[2022-07-16 13:41] VITALS: BP 147/77; PULSE 92; RESP 20; TEMP 36.3; O2SAT 98; BMI 27.8
--- NOTE | 2022-07-16 15:40 | A.OFFVIS_ITS ---
[facility] Pain Management SOAP Note Subjective:: This patient is a pleasant 77-year-old white female who is status post minimally invasive lumbar decompression at L3-L4. Patient has had previous surgery at L4- L5. She has stenosis above this level. She says she does notice a slight improvement. There is improvement in pain as well as function. We will follow- up with her in 2 weeks. In the meantime we will schedule appointment for her to see Dr. Villaseñor, her neurosurgeon. Objective:: Alert and oriented x3 no acute distress. Patient does have an antalgic gait. Motor strength of lower extremities is 5/5. There is no gross sensory deficit. Assessment:: Postlaminectomy syndrome lumbar spine with lumbar spinal stenosis above her level of fusion at L3-L4 with degenerative disc disease of lumbar spine and lumbar radiculopathy symptoms. Plan:: Patient is doing well status post minimally invasive lumbar decompression. We will follow-up with her in 2 weeks. We will also follow-up with her neurosurgeons recommendations. [facility] Medical History (Updated 06/11/22 @ 13:26 by Olga Leyva RN) Diabetes mellitus, type 2 Hyperlipidemia Hypertension Family History (Updated 06/11/22 @ 13:27 by Olga Leyva RN) No significant family history Social History (Updated 06/11/22 @ 13:27 by Olga Leyva RN) Smoking Status: Never smoker alcohol intake: never counseling provided: provider counseling substance use type: denies use current occupational status: other Travel in the last 8 weeks: None household members: spouse housing: house current occupational exposures/hazards: No caffeine: Yes
== END ==
PROVIDERS: PCP Nurse Practitioner Family; Visit Provider Anesthesiology
DX: M51.16 Intervertebral disc disorders with radiculopathy, lumbar region (principal); M96.1 Postlaminectomy syndrome, not elsewhere classified; M48.061 Spinal stenosis, lumbar region without neurogenic claudication
CPT/HCPCS: 99212; G0463

== ENCOUNTER → 2022-07-28 07:08 | Outpatient (CLI) | payer MEDICARE, SELFPAY ==
--- NOTE | 2022-07-28 07:08 | NM_ITS ---
APPROVED REPORT Exam: Nuclear Stress Test Indication: Abnormal EKG, Chest pain, HTN, DM, High cholesterol, Family history, Pre op Patient Location: Outpatient Stress Tech: Zandra White [place] Tech:Jeanie Nascimento, ARRT, RT (R)(N) Ht: 5 ft 3 in Wt: 157 lbs Bra Size: 42B HR: 83 bpm BP: 168/89 mmHg BSA: 1.74 m2 TID: 0.96 BMI: 27.8 History: Abnormal EKG, Chest pain, HTN, DM, High cholesterol, Family history, Pre op Procedure: Patient received a 0.4 mg of intravenous Lexiscan, resting heart rate 83 bpm, resting blood pressure 168/89 mmHg, with Lexiscan maximum heart rate achived was 113 bpm which is Less than 85 % of the maximum predicted heart rate and blood pressure was 178/73 mmHg. With Lexiscan, patient denied any complaint of chest pain. Electrocardiogram Resting electrocardiogram shows sinus rhythm, with Lexiscan there is less than 1.[address] segment depression noted from the baseline EKG. The EKG portion of the Lexiscan is nondiagnostic. Cardiac Stress and Resting SPECT Images: Cardiac Stress and Resting SPECT images were obtained using technetium 99m Myoview 31.3 mCi stress and 10.92 mCi at rest. Patient unable to lay on stomach for prone images due to pain in her back. Gated SPECT analysis of segmental wall motion and calculation of the ejection fraction also done. Cardiac stress and rest SPECT images show uniform myocardial activity without segmental perfusion abnormality, computer derived ejection fraction is 62% with no regional wall motion abnormality, right ventricle is normal size and contractility. Conclusion: 1. The EKG portion of the Lexiscan is nondiagnostic. 2. No scintigraphic evidence of reversible ischemia seen, computer derived ejection fraction is 62% with no regional wall motion abnormality, right ventricle is normal size and contractility. 3. Normal Lexiscan Myoview study. Electronically signed by : Luis F Cooney MD 07/28/2022 16:59:47
--- NOTE | 2022-07-28 07:11 | CA_ITS ---
APPROVED REPORT Exam: Pharmacologic Technologist: Zandra Ross, Ht: 5 ft 3 in Wt: 161 lbs BSA: 1.76 m2 HR: 85 bpm BP: 168/89 mmHg Medical History Medications: Lisinopril,,,,, Omeprazole,,,,, Gabapentin,,,,, Atorvastatin,,,,, Temazepam,,,,, INSULIN,,,,, Tylenol,,,,, Tramadol,,,,, EstraCE,,,,, Voltaren,,,,, DOcusate Sodium,,,,, Hipex,,,,, Stress Test Details Test: LEXISCAN Reason for pharmacologic stress test: physical limitation. HR Resting HR: 83 bpm Max Heart Rate (APMHR): 145.625652 bpm Max HR Achieved: 113 bpm Target HR (85% APMHR): 123.379382 bpm % of APMHR: 77.93 Recovery HR: 104 bpm BP Resting BP: 168.0/89.0 mmHg Max BP: 178.0/73.0 mmHg Recovery BP: 162.0/75.0 mmHg ECG Resting ECG: NSR, normal Clinical Exercise duration: 04:01 min Highest Stage Achieved: Stress ECG Conclusion Symptoms: Mild HANNON. No CP. Arrhythmias/Ectopy: Occ PVCs & fusion beats. ST-T Changes: NS T wave changes. Conclusion: Non-diagnostic Lexiscan stress. Myoview images reported separately. Electronically signed by : Luis F Cooney MD 07/28/2022 16:43:01
--- NOTE | 2022-07-28 08:48 | HMH.ITSHM ---
Current Home Medications as stated by this patient Kaci Walker or textiles sales representative. []TRAMADOL TEMAZEPAM OMEPRAZOLE LISINOPRIL INSULIN GABAPENTIN FLUTICASONE ESTRADIOL DOCUSATE DICLOFENAC ATORVASTATIN ACETAMINOPHEN
--- NOTE | 2022-07-28 09:00 | CA_ITS ---
APPROVED REPORT EXAM: Comprehensive 2D, Doppler, and color-flow Echocardiogram Chief Environmental Commitment Officer: Audrey Lopez RT(R) Ht: 5 ft 3 in Wt: 161lbs BSA: 1.76 BP: 133/70 mmHg Indications: CP, pre op clearance, abn EKG, HTN, hyperlipidemia, DM 2D Dimensions LVOT 1.89 cm (M/F) 1.5-2.5 LVEF (Alex's) 58.60 % F: 54 - 74 LV Volume 82.60 mL F: 46 - 106 LV Volume Index 46.93 mL/m2 F: 29 - 61 LA Volume 33.00 mL LA Volume Index 18.75 mL/m2 (M/F) 16-34 M-Mode Dimensions RVDd 2.26 cm (0.9-2.6) LA Diam 3.37 cm (1.9-4.0) LVDd 4.01 cm (3.5-5.7) Ao Diam 2.37 cm (2.0-3.7) LVDs 3.04 cm (3.5-5.7) IVSd 1.07 cm (0.6-1.1) PWd 0.79 cm (0.6-1.1) EF (Teich) 48.60% FS 24.20% EDV (Teich) 70.40 mL ESV (Teich) 36.20 mL LV Diastology E Decel Time 177.00 (160-240 msec) E/A Ratio 0.7 MED E' 10.20 (< 7 cm/sec) E'/MED E' Ratio 7.02 (>14) LAT E' 8.70 (<10 cm/sec) E/LAT E' Ratio 8.23 (>14) Aortic Valve LVOT Max 92.00 (70-110 cm/s) LVOT VTI 20.72 cm AoV Peak Eleno. 163.00 (50-130 cm/s) AO Peak GR. 10.70 mmHg AO Mean GR. 5.20 (<5 mmHg) AO VTI 31.80 (18-25 cm) DAMIAN (VTI) 1.83 (2.5-4.5 cm2) Mitral Valve MV E Max Eleno. 72.00 (40-130 cm/s) MV A Velocity 100.00 (40-130 cm/s) E/A Ratio 0.72 MV Decel. Time 177.00 (160-240 ms) MV PHT 52.00 ms Left Ventricle Left atrium is mildly enlarged, left ventricle is normal size, mild concentric left ventricular hypertrophy, estimated ejection fraction 55% with no regional wall motion abnormality, grade 1 diastolic dysfunction seen without tissue Doppler evidence of raise left atrial pressure. Right Ventricle Right atrium and right ventricular normal size and contractility. Aortic Valve Aortic valve is minimally thickened and fibrosed there is no aortic stenosis or aortic insufficiency. Mitral Valve Mitral valve grossly normal, there is trace mitral regurgitation. Tricuspid Valve Tricuspid valve is grossly normal, there is trace tricuspid regurgitation, tricuspid regurgitation jet velocity is inadequate for calculation of the right ventricular systolic pressure. Pulmonic Valve Pulmonic valve is poorly visualized. Great Vessels Aortic root is normal size. Inferior vena cava is poorly visualized. Pericardium No significant pericardial effusion noted. Conclusion 1. Mildly enlarged left atrium, normal left ventricular size, mild concentric left ventricular hypertrophy, estimated ejection fraction 55% with no regional wall motion abnormality, grade 1 diastolic dysfunction seen without tissue Doppler evidence of raise left atrial pressure. 2. Trace mitral and tricuspid regurgitation. 3. No significant pericardial effusion noted. 4. Inferior vena cava is poorly visualized. Electronically signed by : Luis F Cooney MD 07/29/2022 06:38:33
== END ==
PROVIDERS: PCP Nurse Practitioner Family; Visit Provider Internal Medicine
DX: R07.9 Chest pain, unspecified (principal); R94.31 Abnormal electrocardiogram [ECG] [EKG]; Z01.810 Encounter for preprocedural cardiovascular examination
CPT/HCPCS: 78452; 93017; 93306; A9502; J2785

== ENCOUNTER 2022-11-16 08:46 | Emergency (ER) | payer MEDICARE, SELFPAY ==
--- NOTE | 2022-11-16 08:53 | XR_ITS ---
FINAL REPORT CLINICAL HISTORY: fall, left shoulder pain FINDINGS: Internal and external rotation views of the left shoulder were obtained. There is no prior exam for comparison. There is a comminuted fracture of the left humeral head and neck involving the greater tuberosity. There is no dislocation. There are mild degenerative disease of the acromioclavicular and glenohumeral joints. Soft tissues are normal. IMPRESSION: Comminuted fracture of the humeral head and neck involving the greater tuberosity. Reviewed, Interpreted and Dictated by Torie Mast MD Transcribed by [employer] Authenticated and [facility]
[2022-11-16 08:54] VITALS: BP 198/99; PULSE 87; RESP 16; TEMP 36.6; O2SAT 97; BMI 28.3
--- NOTE | 2022-11-16 08:54 | HMH.EDGENADL ---
Discharge Plan Disposition Patient Disposition: Home, Self-Care Condition: Good Prescriptions Prescriptions: New hydrocodone-acetaminophen 5-325 mg tablet 1 tab PO Q8H PRN (Reason: pain) Qty: 14 0RF No Action atorvastatin 40 mg tablet 40 mg PO DAILY 90 Days Qty: 90 Label Comments: methenamine hippurate 1 gram tablet 1 g PO DAILY 30 Days Qty: 30 Label Comments: estradiol [Estrace] 0.01 % (0.1 mg/gram) cream 1 g vaginal . DIRECTED Rx Instructions: q 2 weeks acetaminophen [Tylenol Arthritis Pain] 650 mg tablet extended release 650 mg PO ONCE insulin aspart U-100 [Novolog U-100 Insulin aspart] 100 unit/mL solution 6 - 8 units SQ DAILY Rx Instructions: 8 units at breakfast; 6 units at lunch and dinner Tresiba FlexTouch U-100 100 unit/mL (3 mL) insulin pen 20 unit SUB-Q DAILY fluticasone propionate 9.9 ML spray,suspension 1 spray intranasal QDAY Rx Instructions: administer into each nostril temazepam 15 MG capsule 15 mg PO HS tramadol 50 MG tablet 50 mg PO DAILY lisinopril 10 MG tablet 10 mg PO DAILY docusate sodium 100 MG capsule 100 mg PO BID gabapentin 300 MG capsule 300 mg PO QID omeprazole 20 MG capsule,delayed release(DR/EC) 20 mg PO DAILY diclofenac sodium 75 MG tablet,delayed release (DR/EC) 75 mg PO BID Referrals Follow up/Referrals: Yanick Godoy JR, MD [Physician] - See instructions Lizette Cruz APRN [Primary Care Provider] - See instructions Activity Restrictions/Add. Instructions Additional Instructions/Restrictions: Apply ice as needed for discomfort. Follow-up promptly with your orthopedic surgeon of preference. Clinical Impressions Clinical Impression: Closed fracture of proximal end of right humerus Discharge ED Provider: Manny Benitez General Adult HPI General Chief complaint: Fall Stated complaint: fall Time Seen by Provider: 11/16/22 08:50 History of Present Illness HPI narrative: Patient presents complaining of left shoulder pain following a mechanical fall. She describes pain as mild to moderate and worse with movement. She states she tripped over a cord resulting in the fall. She denies loss of consciousness or head trauma. Related Data Home Medications Medication Instructions Recorded Confirmed acetaminophen 650 mg 650 mg PO ONCE Pain 10/04/17 08/16/22 tablet,extended release (Tylenol Arthritis Pain) atorvastatin 40 mg tablet 40 mg PO DAILY Cholesterol 90 days 10/04/17 08/16/22 #90 tabs estradiol 0.01% (0.1 mg/gram) 1 g vaginal . DIRECTED hormone 10/04/17 08/16/22 vaginal cream (Estrace) methenamine hippurate 1 gram tablet 1 g PO DAILY bladder infection 30 10/04/17 08/16/22 days #30 tabs insulin aspart U-100 100 unit/mL 6 - 8 units SQ DAILY Diabetes 12/06/19 08/16/22 subcutaneous solution (Novolog U-100 Insulin aspart) insulin degludec 100 unit/mL (3 20 unit SUB-Q DAILY Diabetes 12/06/19 08/16/22 mL) subcutaneous pen (Tresiba FlexTouch U-100 insulin) fluticasone propionate 50 1 spray intranasal QDAY Allergy 07/29/20 08/16/22 mcg/actuation nasal symptoms spray,suspension diclofenac sodium 75 mg 75 mg PO BID Pain 05/03/22 08/16/22 tablet,delayed release docusate sodium 100 mg capsule 100 mg PO BID . 05/03/22 08/16/22 gabapentin 300 mg capsule 300 mg PO QID Pain 05/03/22 08/16/22 lisinopril 10 mg tablet 10 mg PO DAILY hld 05/03/22 08/16/22 omeprazole 20 mg capsule,delayed 20 mg PO DAILY GERD 05/03/22 08/16/22 release temazepam 15 mg capsule 15 mg PO HS Pain 05/03/22 08/16/22 tramadol 50 mg tablet 50 mg PO DAILY Pain 05/03/22 08/16/22 Previous Rx's Medication Instructions Recorded hydrocodone 5 mg-acetaminophen 325 1 tab PO Q8H PRN pain #14 tabs 11/16/22 mg tablet Allergies Allergy/AdvReac Type Severity Reaction Status Date / Time hydromorphone [From Dilaudid] AdvReac Intermediate Vo
[2022-11-16 09:02] VITALS: BP 180/89; PULSE 86; RESP 18; O2SAT 96
--- NOTE | 2022-11-16 09:17 | PC.NURSE ---
paged ortho linesperson
--- NOTE | 2022-11-16 09:43 | PC.NURSE ---
paged dr thompson again
[2022-11-16 10:28] VITALS: BP 116/79; PULSE 75; RESP 15; TEMP 37; O2SAT 99
== END 2022-11-16 10:31 | disposition home or self-care (01) ==
PROVIDERS: Emergency Provider Emergency Medicine; PCP Nurse Practitioner Family
DX: S42.201A Unspecified fracture of upper end of right humerus, initial encounter for closed fracture (principal); R94.31 Abnormal electrocardiogram [ECG] [EKG]; E11.9 Type 2 diabetes mellitus without complications; E78.5 Hyperlipidemia, unspecified; I10 Essential (primary) hypertension; W01.0XXA Fall on same level from slipping, tripping and stumbling without subsequent striking against object, initial encounter
CPT/HCPCS: 73030; 99283; 99284

== ENCOUNTER → 2023-03-21 09:43 | Outpatient (CLI) | payer MEDICARE, SELFPAY ==
--- NOTE | 2023-03-21 09:49 | MM_ITS ---
PROCEDURE INFORMATION: Exam: MG Bilateral Screening 3D Mammography Exam date and time: 03/21/2023 9:36 AM Age: 77 years old Clinical indication: Screening. No family history of breast cancer. TECHNIQUE: Imaging protocol: Bilateral Screening tomosynthesis and 2D mammography including computer-aided detection (CAD) when performed. COMPARISON: 1. MG MM DIG SCREENING MAMM BI W/CAD 02/16/2022 10:04 AM 2. MG MM DIG SCREENING MAMM BI W/CAD 02/10/2021 10:25 AM 3. MG MM DIG MAMM BI DX W/CAD 11/22/2019 9:37 AM 4. MG SCBI MM Dig screening mamm BI w/CAD 09/25/2018 8:38 AM FINDINGS: MAMMOGRAPHY: Breast composition: There are scattered areas of fibroglandular density. Mass: None. Architectural distortion: None. Calcifications: No suspicious calcifications. Asymmetric density: None. Skin thickening: None. Axillary adenopathy: None. Other: Bilateral biopsy clips. IMPRESSION: No mammographic evidence of malignancy. Annual screening is recommended unless otherwise clinically indicated. ASSESSMENT: BI-RADS Category 2: Benign
== END ==
PROVIDERS: PCP Nurse Practitioner Family; Visit Provider Nurse Practitioner Family
DX: Z12.31 Encounter for screening mammogram for malignant neoplasm of breast (principal)
CPT/HCPCS: 77063; 77067

== ENCOUNTER 2023-08-12 18:18 | Emergency (ER) | payer MEDICARE, SELFPAY ==
--- NOTE | 2023-08-12 18:27 | XR_ITS ---
PROCEDURE INFORMATION: Exam: XR Left Knee Exam date and time: 08/12/2023 6:24 PM Age: 78 years old Clinical indication: Pain; Knee; Left; Additional info: Gave out on her TECHNIQUE: Imaging protocol: Radiologic exam of the left knee. Views: 3 views. COMPARISON: NM BONE SCAN WHOLE BODY 12/31/2019 12:19 PM FINDINGS: Bones/joints: Generalized osteopenia. Chondrocalcinosis. Mild tricompartmental degenerative spurring. No acute fracture identified. Soft tissues: Normal. IMPRESSION: No acute finding.
[2023-08-12 18:40] VITALS: BP 169/83; PULSE 90; RESP 21; TEMP 36.6; O2SAT 97; BMI 29.8
--- NOTE | 2023-08-12 18:41 | EXP.UTC ---
Discharge Plan Disposition Patient Disposition: Home, Self-Care Condition: Good Prescriptions Prescriptions: New methylprednisolone 4 mg Tablets,Dose Pack 4 mg PO DIRECTED Qty: 21 0RF No Action atorvastatin 40 mg tablet 40 mg PO DAILY 90 Days Qty: 90 Patient Comments: methenamine hippurate 1 gram tablet 1 g PO DAILY 30 Days Qty: 30 Patient Comments: estradiol [Estrace] 0.01 % (0.1 mg/gram) cream 1 g vaginal . DIRECTED Rx Instructions: q 2 weeks acetaminophen [Tylenol Arthritis Pain] 650 mg tablet extended release 650 mg PO ONCE insulin aspart U-100 [Novolog U-100 Insulin aspart] 100 unit/mL solution 6 - 8 units SQ DAILY Rx Instructions: 8 units at breakfast; 6 units at lunch and dinner Tresiba FlexTouch U-100 100 unit/mL (3 mL) insulin pen 20 unit SUB-Q DAILY fluticasone propionate 9.9 ML spray,suspension 1 spray intranasal QDAY Rx Instructions: administer into each nostril temazepam 15 MG capsule 15 mg PO HS tramadol 50 MG tablet 50 mg PO DAILY lisinopril 10 MG tablet 10 mg PO DAILY docusate sodium 100 MG capsule 100 mg PO BID gabapentin 300 MG capsule 300 mg PO QID omeprazole 20 MG capsule,delayed release(DR/EC) 20 mg PO DAILY diclofenac sodium 75 MG tablet,delayed release (DR/EC) 75 mg PO BID hydrocodone-acetaminophen 5-325 mg tablet 1 tab PO Q8H PRN (Reason: pain) Qty: 14 0RF Referrals Follow up/Referrals: Lizette Cruz APRN [Primary Care Provider] - See instructions Activity Restrictions/Add. Instructions Additional Instructions/Restrictions: Rest the extremity, Wear the tono wrap for compression, Elevate the extremity as tolerated while you are resting. Take the medication as directed. Watch your blood sugars while you are on the steroids because they will cause it go up. Follow up with Dr. Morel (orthopedics). I put in a referral but you need to call his office and schedule an appointment. Follow up with your regular doctor. GO TO THE ER FOR ANY WORSENING SYMPTOMS Clinical Impressions Clinical Impression: Osteoarthritis of left knee, Left knee pain Instructions Patient Instructions: DI for Knee Pain, Methylprednisolone Discharge ED Provider: Jorden Graff [facility] General Stated complaint: Left knee gave out Time Seen by Provider: 08/12/23 18:41 History of Present Illness Provider Complaint: She states that for the past 2 weeks she has had left knee pain. At times it hurts so bad that the knee goes out and she almost falls. She denies any injury. She denies any other joint pain. Related Data Home Medications Medication Instructions Recorded Confirmed acetaminophen 650 mg 650 mg PO ONCE Pain 10/04/17 08/16/22 tablet,extended release (Tylenol Arthritis Pain) atorvastatin 40 mg tablet 40 mg PO DAILY Cholesterol 90 days 10/04/17 08/16/22 #90 tabs estradiol 0.01% (0.1 mg/gram) 1 g vaginal . DIRECTED hormone 10/04/17 08/16/22 vaginal cream (Estrace) methenamine hippurate 1 gram tablet 1 g PO DAILY bladder infection 30 10/04/17 08/16/22 days #30 tabs insulin aspart U-100 100 unit/mL 6 - 8 units SQ DAILY Diabetes 12/06/19 08/16/22 subcutaneous solution (Novolog U-100 Insulin aspart) insulin degludec 100 unit/mL (3 20 unit SUB-Q DAILY Diabetes 12/06/19 08/16/22 mL) subcutaneous pen (Tresiba FlexTouch U-100 insulin) fluticasone propionate 50 1 spray intranasal QDAY Allergy 07/29/20 08/16/22 mcg/actuation nasal symptoms spray,suspension diclofenac sodium 75 mg 75 mg PO BID Pain 05/03/22 08/16/22 tablet,delayed release docusate sodium 100 mg capsule 100 mg PO BID . 05/03/22 08/16/22 gabapentin 300 mg capsule 300 mg PO QID Pain 05/03/22 08/16/22 lisinopril 10 mg tablet 10 mg PO DAILY hld 05/03/22 08/16/22 omeprazole 20 mg capsule,delayed 20 mg PO DAILY GERD 05/03/22 08/16/22 release temazepam 15 mg ca
[2023-08-12 19:18] VITALS: BP 169/83; PULSE 90; RESP 21; TEMP 36.6; O2SAT 97
== END 2023-08-12 19:20 | disposition home or self-care (01) ==
PROVIDERS: Emergency Provider Nurse Practitioner Family; PCP Nurse Practitioner Family
DX: M25.562 Pain in left knee (principal); M17.12 Unilateral primary osteoarthritis, left knee; E11.9 Type 2 diabetes mellitus without complications; E78.5 Hyperlipidemia, unspecified; I10 Essential (primary) hypertension; Z79.4 Long term (current) use of insulin
CPT/HCPCS: 73562; 99212; 99214; G0463

== ENCOUNTER 2023-09-29 10:00 | Outpatient (RCR) | payer MEDICARE, SELFPAY | END 2023-09-29 11:00 | disposition home or self-care (01) | LOC: PT 10:00 | PROVIDERS: PCP Nurse Practitioner Family; Visit Provider Physical Medicine & Rehabilitation | DX: M25.512 Pain in left shoulder (principal); Z96.612 Presence of left artificial shoulder joint | CPT/HCPCS: 97010; 97014; 97016; 97110; 97140; 97163; 97164; G0283 ==

== ENCOUNTER 2023-11-22 23:41 | Observation (INO) | payer MEDICARE, SELFPAY ==
[2023-11-22 23:45] VITALS: BP 127/58; PULSE 103; RESP 20; TEMP 36.6; O2SAT 95; BMI 31.7
--- NOTE | 2023-11-22 23:47 | HMH.EDGENADL ---
Discharge Plan Disposition Patient Disposition: Admitted Clinical Impressions Clinical Impression: Enteritis, FANNY (acute kidney injury), Acute uremia, Acute dehydration Discharge ED Provider: Jordin Fair Adult HPI General Chief complaint: Abdominal Pain Stated complaint: vomiting, adb pain, diahrrea, chills Time Seen by Provider: 11/22/23 23:47 History of Present Illness HPI narrative: 78-year-old female with history of insulin-dependent diabetes, hypertension, hyperlipidemia presents with nausea vomiting and diarrhea. Patient reports that her vomiting has been ongoing since Tuesday, diarrhea started today. Both have been profuse and nonbloody in nature. No reported fever at home. Patient reports mild abdominal discomfort in the right upper quadrant. Denies any urinary symptoms. Related Data Home Medications Medication Instructions Recorded Confirmed acetaminophen 650 mg 650 mg PO ONCE Pain 10/04/17 10/26/23 tablet,extended release (Tylenol Arthritis Pain) atorvastatin 40 mg tablet 40 mg PO DAILY Cholesterol 90 days 10/04/17 10/26/23 #90 tabs estradiol 0.01% (0.1 mg/gram) 1 g vaginal . DIRECTED hormone 10/04/17 10/26/23 vaginal cream (Estrace) methenamine hippurate 1 gram tablet 1 g PO DAILY bladder infection 30 10/04/17 10/26/23 days #30 tabs insulin aspart U-100 100 unit/mL 6 - 8 units SQ DAILY Diabetes 12/06/19 10/26/23 subcutaneous solution (Novolog U-100 Insulin aspart) insulin degludec 100 unit/mL (3 20 unit SUB-Q DAILY Diabetes 12/06/19 10/26/23 mL) subcutaneous pen (Tresiba FlexTouch U-100 insulin) fluticasone propionate 50 1 spray intranasal QDAY Allergy 07/29/20 10/26/23 mcg/actuation nasal symptoms spray,suspension diclofenac sodium 75 mg 75 mg PO BID Pain 05/03/22 10/26/23 tablet,delayed release docusate sodium 100 mg capsule 100 mg PO BID . 05/03/22 10/26/23 gabapentin 300 mg capsule 300 mg PO QID Pain 05/03/22 10/26/23 lisinopril 10 mg tablet 10 mg PO DAILY hld 05/03/22 10/26/23 omeprazole 20 mg capsule,delayed 20 mg PO DAILY GERD 05/03/22 10/26/23 release temazepam 15 mg capsule 15 mg PO HS Pain 05/03/22 10/26/23 tramadol 50 mg tablet 50 mg PO DAILY Pain 05/03/22 10/26/23 Previous Rx's Medication Instructions Recorded hydrocodone 5 mg-acetaminophen 325 1 tab PO Q8H PRN pain #14 tabs 11/16/22 mg tablet methylprednisolone 4 mg tablets in 4 mg PO DIRECTED #21 tabs 08/12/23 a dose pack diclofenac sodium 75 mg 75 mg PO BID #60 tabs 09/02/23 tablet,delayed release Allergies Allergy/AdvReac Type Severity Reaction Status Date / Time hydromorphone [From Dilaudid] AdvReac Intermediate Vomiting Verified 10/26/23 10:30 [facility] Disclaimer: The information contained in this section may have been updated after the patient was seen, as this information can be updated by other users. Medical History Abnormal electrocardiogram [ECG] [EKG] Diabetes mellitus, type 2 Encounter for pre-operative cardiovascular clearance Hyperlipidemia Hypertension Family History Other No significant family history Social History Smoking Status: Never smoker alcohol intake: never counseling provided: provider counseling substance use type: denies use current occupational status: other Travel in the last 8 weeks: None household members: spouse housing: house current occupational exposures/hazards: No caffeine: Yes ROS Obtained: Yes All systems reviewed & no additional complaints except as documented Physical Exam General General appearance: alert Comment: Uncomfortable appearing Head Head exam: atraumatic and normocephalic Eye Eye exam: Present normal appearance, PERRL and EOMI ENT ENT exam: Present mucous membranes dry and normal external ear exam Neck Neck exam: Present normal inspection and full ROM Chest Chest inspection: Present normal inspection and symmetric chest wall rise; Absent tenderness Respiratory Respiratory exam: Present normal lung sounds bilaterally; Absent respiratory distress Cardiovascular Cardiovascular exam: Present normal rhythm and tachycardia Abdominal Exam Abdominal exam: Present soft, distention and tenderness (Right upper quadrant, mild); Absent guarding, rebound or rigidity Extremities Exam Extremities exam: Present normal inspection and edema; Absent joint swelling Back Exam Back exam: Present normal inspection; Absent tenderness Neurological Exam Neurological exam: Present alert and oriented X3; Absent motor sensory deficit Psychiatric Psychiatric exam: Present normal affect and normal mood Skin Skin exam: Present warm, dry and normal color Lymphatic Lymphatic Findings: no adenopathy Medical Decision Making Medical Records Medical records reviewed: Yes I reviewed the patient's medical records. Andres Inquiry Pt receiving controlled substance: No Andres was queried for this patient: No Vital Signs: 11/22/23 23:45 11/23/23 00:01 11/23/23 00:30 Temperature 98 F Temperature Source Oral Pulse Rate 100 H 94 H Pulse Rate [Left] 103 H Respiratory Rate 20 Blood Pressure 112/51 L 118/56 L Blood Pressure [Right Arm] 127/58 L Blood Pressure Mean [Right Arm] 81 Blood Pressure Source [Right Arm] Automatic Cuff Blood Pressure Position [Right Arm] Sitting 02 Sat by Pulse Oximetry 95 93 L 95 Oxygen Delivery Method Room Air Lab Data Lab results reviewed: Yes I reviewed the patient's lab results. Lab Results 11/22/23 23:57: WBC 7.4, RBC 3.33 L, Hgb 10.8 L, Hct 33.3 L, MCV 99.9 H, MCH 32.4 H, MCHC 32.4, RDW 13.8, Plt Count 235, MPV 9.0, Neut % (Auto) 66.0, Lymph % (Auto) 19.7, [place] % (Auto) 13.2 H, Eos % (Auto) 0.6, Baso % (Auto) 0.5, Neut # (Auto) 4.9, Lymph # (Auto) 1.5, [place] # (Auto) 1.0, Eos # (Auto) 0.0, Baso # (Auto) 0.0, Sodium 137, Potassium 4.2, Chloride 108 H, Carbon Dioxide 24, Anion Gap 9.2, BUN 54 H, Creatinine 1.50 H, Estimated Creat Clear 38, Estimated GFR 34 L, Est GFR ( Amer) 41 L, Glucose 154 H, Calcium 8.2 L, Magnesium 2.1, Total Bilirubin 0.4, AST 44 H, ALT 51, Alkaline Phosphatase 158 H, Total Protein 6.1 L, Albumin 3.2 L, Globulin 2.9, Albumin/Globulin Ratio 1.1, Lipase 87, Acetone Level None detected 11/23/23 00:05: SARS-CoV-2 (PCR) Not detected, Influenza A Untype (PCR) Not detected, Influenza Type B (PCR) Not detected 11/23/23 00:15: VBG pH 7.33, VBG pCO2 45.1, VBG pO2 39.3, VBG HCO3 23.3, VBG Total CO2 24.7, VBG O2 Saturation 73.9 H, VBG Base Excess -2.6 L, VBG Lactic Acid 1.7 11/22/23 23:57 11/22/23 23:57 Orders (Tests/Meds): ED MEDICATIONS Generic Name Dose Route Start Last Admin Trade Name Freq PRN Reason Stop Dose Admin Lactated Ringer's 1,000 mls @ 999 mls/hr 11/23/23 01:45 11/23/23 01:47 Lactated Ringer's 1000 Ml Bag IV 11/23/23 02:45 999 mls/hr .Q1H1M JOSÉ MIGUEL Administration Sodium Chloride 10 ml 11/23/23 00:50 11/23/23 00:51 Sodium Chloride 0.9% 10ml Syr (Rad Only) IV 12/23/23 00:49 10 ml NEEDED PRN Administration Maintain IV Site Discontinued Medications Generic Name Dose Route Start Last Admin Trade Name Freq PRN Reason Stop Dose Admin Lactated Ringer's 1,000 mls @ 999 mls/hr 11/22/23 23:45 11/23/23 00:04 Lactated Ringer's 1000 Ml Bag IV 11/23/23 00:45 999 mls/hr .Q1H1M JOSÉ MIGUEL Administration Azithromycin 500 mg/ Sodium 250 mls @ 250 mls/hr 11/23/23 01:38 11/23/23 01:47 Chloride IV 11/23/23 01:39 250 mls/hr ONCE ONE Administration Iopamidol 75 ml 11/23/23 00:50 11/23/23 00:51 Iopamidol-370 (76%);100ml Bottle IV 11/23/23 00:51 75 ml ONCE ONE Administration Ondansetron HCl 4 mg 11/22/23 23:56 11/23/23 00:04 Ondansetron 4mg/2ml Vial IV 11/22/23 23:57 4 mg ONCE ONE Administration Ondansetron HCl 4 mg 11/23/23 01:20 11/23/23 01:23 Ondansetron 4mg/2ml Vial IV 11/23/23 01:21 4 mg ONCE ONE Administration ORDERS Category Date Time Status CT abdomen pelvis w con Stat Cat Scan 11/22/23 23:56 Completed Acetone, Serum (Rapid) Stat Lab 11/22/23 23:57 Completed CBC w/Auto Diff [Complete Blood Count Auto Diff] Stat Lab 11/22/23 23:57 Completed CMP [Comprehensive Metabolic Panel] Stat Lab 11/22/23 23:57 Completed Diarrhea 23 Panel, PCR Stat Lab 11/23/23 01:37 Ordered Lactate Venous Stat Lab 11/23/23 00:15 Completed Lipase Stat Lab 11/22/23 23:57 Completed Magnesium Stat Lab 11/22/23 23:57 Completed Rapid PCR Covid and Flu A/B Stat Lab 11/23/23 00:05 Completed VBG [Venous Blood Gas] Stat RT 11/23/23 00:15 Completed Medical Decision Narrative: 78-year-old female with history of insulin-dependent diabetes, hypertension, hyperlipidemia presents with nausea vomiting since Tuesday, diarrhea today.. History was obtained interactive discussion with patient, family, chart review. On arrival, patient is afebrile, mildly tachycardic normotensive, satting appropriately on room air, moving all extremities spontaneously. Full physical exam performed and significant for right upper quadrant tenderness without guarding or peritonitis. Mild abdominal distention noted. Dry mucous membranes noted. Patient is mildly confused. Differential includes but is not limited to bowel obstruction, enteritis, dehydration, FANNY, electrolyte derangement, DKA. Patient was given 2 L IV fluid bolus, total of 8 mg IV Zofran, for symptomatic management and correction of underlying abnormalities. Workup initiated including CBC CMP lipase VBG lactate CT abdomen pelvis with IV contrast. On re-evaluation, patient [remains afebrile, HD stable.] Abdominal exam remains stable. Laboratory workup independently interpreted by me and significant for FANNY with creatinine 1.5, up from baseline of less than 1, uremia noted with BUN of 54. No significant electrolyte derangement, negative lipase, normal lactate, No leukocytosis. Imaging independently interpreted by me and significant for diffuse small bowel thickening and mild dilatation without evidence of focal obstruction. See radiology read for full review of final results. NG tube was considered, but deemed unnecessary due to patient is tolerating her emesis, does not wish to have an NG tube, is not currently obstructed. Given patient history, exam and workup, patient's presentation most likely represents enteritis reasoning and dehydration, acute kidney injury and uremia. History imaging and abdominal exam is not consistent with bowel obstruction at this time. Given patient's age, comorbidities and severity of symptoms, she was initiated on azithromycin for treatment of enteritis. Interactive discussion was had with the hospitalist on-call for admission. Procedures Risk/Benefits of Procedure(s) Were Explained: Yes Critical Care Critical Care Time Critical Care Time: No
--- NOTE | 2023-11-22 23:56 | CT_ITS ---
PROCEDURE INFORMATION: Exam: CT Abdomen And Pelvis With Contrast Exam date and time: 11/23/2023 12:38 AM Age: 78 years old Clinical indication: Abdominal pain; Additional info: Ruq pain, n/v/d TECHNIQUE: Imaging protocol: Computed tomography of the abdomen and pelvis with contrast. Radiation optimization: All CT scans at this facility use at least one of these dose optimization techniques: automated exposure control; mA and/or kV adjustment per patient size (includes targeted exams where dose is matched to clinical indication); or iterative reconstruction. Contrast material: ISOVUE; Contrast volume: 75 ml; Contrast route: IV; COMPARISON: 1. CT ABDOMEN PELVIS WO CON 12/22/2019 6:[address] ABDOMEN PELVIS WO CON 12/11/2019 5:44 PM 3. CR XR HIP LT 2-3V W/PELVIS 04/28/2020 4:41 PM FINDINGS: Liver: There are calcifications in the liver which most likely reflect calcified granulomas. Gallbladder and bile ducts: No acute process. Pancreas: Normal. Spleen: There are multiple calcifications in the spleen most likely reflects small granulomas. Adrenal glands: The adrenal glands appear normal. Kidneys and ureters: There are no soft tissue renal masses or hydronephrosis. Stomach and bowel: There is moderate fluid distension of small bowel loops without a focal point of obstruction identified. The appearance may reflect enteritis or ileus but a partial small bowel obstruction is not excluded.. Appendix: Patient is status post appendectomy. Intraperitoneal space: Unremarkable. Vasculature: The abdominal aorta and its major branches appear normal without evidence of aneurysm or stenosis. There are pelvic phleboliths. Lymph nodes: No lymphadenopathy. Urinary bladder: Unremarkable as visualized. Reproductive: No acute process. Bones/joints: There is surgical hardware within the lumbar spine. There is anterolisthesis of L5 on S1. Soft tissues: There is a small fat containing umbilical hernia. IMPRESSION: There is moderate fluid distension of small bowel loops without a focal point of obstruction identified. The appearance may reflect enteritis or ileus but a partial small bowel obstruction is not excluded. No evidence for perforation.
[2023-11-23] VITALS (10 sets, daily range): BP systolic 107–152; BP diastolic 46–65; PULSE 94–110; RESP 16–20; TEMP 36.6–37; O2SAT 93–100; BMI 31.4
[2023-11-23] MEDS: LACTATED RINGERS 1000ML 1,000 ML 999 ML IV ×2 (00:04→01:47)
[2023-11-23] MEDS: ONDANSETRON 4MG/2ML VIAL 4 MG IV ×2 (00:04→01:23)
[2023-11-23 00:17] LABS: Coronavirus 19, PCR Not Detected (NotDetected); Influenza A, PCR Not Detected (NotDetected); Influenza B, PCR Not Detected (NotDetected)
[2023-11-23 00:17] LABS: Lactate Venous 1.7 mmol/L (0.4-2.0); VBG Base Excess -2.6 mmol/L (-2.4-2.3); VBG HCO3 23.3 mmol/L (23-30); VBG Oxygen Saturation 73.9 % (50-70); VBG PCO2 45.1 mmol/L (35-51); VBG PH 7.33 mmol/L (7.31-7.41); VBG PO2 39.3 mmol/L (28-40); VBG Total CO2 24.7 mmol/L (23-27)
[2023-11-23 00:19] LABS: Basophils % 0.5 % (0.1-2.0); Eosinophils % 0.6 % (0.1-12.0); Hematocrit 33.3 % (37.0-47.0); Hemoglobin 10.8 g/dL (12.2-16.2); Lymphocytes # 1.5 K/mm3 (0.7-4.5); Lymphocytes % 19.7 % (10-50); Mean Corpuscular HGB Conc 32.4 g/dL (31.8-35.4); Mean Corpuscular Hemoglobin 32.4 pg (27.0-31.2); Mean Corpuscular Volume 99.9 fl (81-99); Monocytes % 13.2 % (1.7-9.3); Neutrophils # 4.9 K/mm3 (1.8-7.8); Platelet Count 235 K/mm3 (142-424); Red Blood Count 3.33 M/mm3 (4.20-5.40); Red Cell Distribution Width 13.8 % (11.5-17.5); White Blood Count 7.4 K/mm3 (4.8-10.8)
[2023-11-23 00:23] LABS: Chloride 108 mmol/L (98-107); Potassium 4.2 mmoL/L (3.5-5.1); Sodium 137 mmol/L (136-145)
[2023-11-23 00:25] LABS: Alanine Aminotransferase 51 U/L (12-78); Aspartate Amino Transferase 44 U/L (14-36); Blood Urea Nitrogen 54 mg/dl (7-17); Creatinine Clearance Estimated 38 mL/min (50-200); Estimated Glomerular Filt Rate 34 ml/min (>60); GFR (African American) 41 ML/MIN (>60)
[2023-11-23 00:26] LABS: Albumin Level 3.2 g/dl (3.5-5.0); Albumin/Globulin Ratio 1.1 (1.1-1.8); Alkaline Phosphatase 158 U/L (38-126); Anion Gap 9.2 mEq/L (5-15); Bilirubin,Total 0.4 mg/dl (0.2-1.3); Calcium 8.2 mg/dl (8.4-10.2); Carbon Dioxide 24 mmol/L (22.0-30.0); Globulin 2.9 g/dL (1.3-3.2); Glucose 154 mg/dl (74-100); Lipase 87 U/L (23-300); Magnesium 2.1 mg/dl (1.6-2.3); Total Protein,Serum 6.1 g/dl (6.3-8.2)
--- NOTE | 2023-11-23 00:32 | PC.NURSE ---
patient gone to CT at this time.
--- NOTE | 2023-11-23 00:43 | PC.NURSE ---
patient back in room at this time.
[2023-11-23] MEDS: IOPAMIDOL-370 (76%);100ML BOTTLE 75 ML IV (00:51)
[2023-11-23] MEDS: SODIUM CHLORIDE 0.9% 10ML SYR (RAD ONLY) 10 ML IV (00:51)
[2023-11-23 00:55] LABS: Acetone, Serum (Rapid) None Detected (None Detect)
--- NOTE | 2023-11-23 01:41 | PC.NURSE ---
on phone with hospitalist
--- NOTE | 2023-11-23 01:43 | PC.NURSE ---
notified senior housekeeper of admission
[2023-11-23] MEDS: AZITHROMYCIN 500 MG in 0.9 % SODIUM CHLORIDE 250 ML 250 MG IV (01:47)
--- NOTE | 2023-11-23 01:55 | PC.NURSE ---
Report called to Marija RN #[id number], pt to go by rickey
--- NOTE | 2023-11-23 02:24 | EXP.HP ---
History of Present Illness *Admission Date: 11/23/23 *Reason for visit:: FANNY *History of present illness: 78 year old female presented to [facility] ED for c/o N/V/D since tuesday. PMHX of DM, HTN, and HLD. She denies bloody stools or fevers. Reports RUQ abd pain that is tender to palpation. Her ED workup revealed a creatinine of 1.5, BUN of 54, covid/flu negative. Her CTA demonstrates fluid distension of the small bowel with obstruction and enteritis. She was given 2L of LR, zofran and Azithromycin. The ED physician consulted the hospitalist team for further medical management. I admitted the pt to the medical floor. She will continue to receive IV fluids and antiemetic. Stool panel pending. [facility] Disclaimer: The information contained in this section may have been updated after the patient was seen, as this information can be updated by other users. Medical History Abnormal electrocardiogram [ECG] [EKG] Diabetes mellitus, type 2 Encounter for pre-operative cardiovascular clearance Hyperlipidemia Hypertension Family History Other No significant family history Social History Smoking Status: Never smoker alcohol intake: never counseling provided: provider counseling substance use type: denies use current occupational status: other Travel in the last 8 weeks: None household members: spouse housing: house current occupational exposures/hazards: No caffeine: Yes Review of Systems Review of Systems Review of systems:: pertinent systems reviewed and negative unless documented below *Gastrointestinal Gastrointestinal: Reports abdominal pain, Reports loose stools and Reports vomiting Meds Home Medications and Allergies Home Medications Medication Instructions Recorded Confirmed Type acetaminophen 650 mg 650 mg PO DAILY 10/04/17 11/23/23 History tablet,extended release (Tylenol Arthritis Pain) atorvastatin 40 mg tablet 40 mg PO DAILY 90 days #90 tabs 10/04/17 11/23/23 History estradiol 0.01% (0.1 mg/gram) 1 g vaginal .2 TIMES A WEEK 10/04/17 11/23/23 History vaginal cream (Estrace) methenamine hippurate 1 gram tablet 1 g PO DAILY 30 days #30 tabs 10/04/17 11/23/23 History insulin aspart U-100 100 unit/mL 6 unit SQ TIDWMEAL Diabetes 12/06/19 11/23/23 History subcutaneous solution (Novolog U-100 Insulin aspart) insulin degludec 100 unit/mL (3 18 unit SUB-Q DAILY 12/06/19 11/23/23 History mL) subcutaneous pen (Tresiba FlexTouch U-100 insulin) diclofenac sodium 75 mg 75 mg PO BID 05/03/22 11/23/23 History tablet,delayed release docusate sodium 100 mg capsule 100 mg PO BID 05/03/22 11/23/23 History gabapentin 300 mg capsule 300 mg PO QID 05/03/22 11/23/23 History omeprazole 20 mg capsule,delayed 20 mg PO DAILY 05/03/22 11/23/23 History release temazepam 15 mg capsule 15 mg PO HS 05/03/22 11/23/23 History tramadol 50 mg tablet 50 mg PO DAILY PRN Pain 05/03/22 11/23/23 History New Prescriptions to Start Prescriptions: Allergies Allergy/AdvReac Type Severity Reaction Status Date / Time hydromorphone [From Dilaudid] AdvReac Intermediate Vomiting Verified 10/26/23 10:30 Exam Data for Last 24 hours Vital signs and Labs for Last 24 Hours: Temp Pulse Resp BP Pulse Ox O2 Del Method 98 F 99 H 20 152/65 H 94 L Room Air 11/23/23 01:56 11/23/23 01:56 11/23/23 01:56 11/23/23 01:56 11/23/23 01:30 11/23/23 01:56 Laboratory Results - last 24 hr 11/22/23 23:57: WBC 7.4, RBC 3.33 L, Hgb 10.8 L, Hct 33.3 L, MCV 99.9 H, MCH 32.4 H, MCHC 32.4, RDW 13.8, Plt Count 235, MPV 9.0, Neut % (Auto) 66.0, Lymph % (Auto) 19.7, [place] % (Auto) 13.2 H, Eos % (Auto) 0.6, Baso % (Auto) 0.5, Neut # (Auto) 4.9, Lymph # (Auto) 1.5, [place] # (Auto) 1.0, Eos # (Auto) 0.0, Baso # (Auto) 0.0, Sodium 137, Potassium 4.2, Chloride 108 H, Carbon Dioxide 24, Anion Gap 9.2, BUN 54 H, Creatinine 1.50 H, Estimated Creat Clear 38, Estimated GFR 34 L, Est GFR ( Amer) 41 L, Glucose 154 H, Calcium 8.2 L, Magnesium 2.1, Total Bilirubin 0.4, AST 44 H, ALT 51, Alkaline Phosphatase 158 H, Total Protein 6.1 L, Albumin 3.2 L, Globulin 2.9, Albumin/Globulin Ratio 1.1, Lipase 87, Acetone Level None detected 11/23/23 00:05: SARS-CoV-2 (PCR) Not detected, Influenza A Untype (PCR) Not detected, Influenza Type B (PCR) Not detected 11/23/23 00:15: VBG pH 7.33, VBG pCO2 45.1, VBG pO2 39.3, VBG HCO3 23.3, VBG Total CO2 24.7, VBG O2 Saturation 73.9 H, VBG Base Excess -2.6 L, VBG Lactic Acid 1.7 I & O for Last 24 hours: Intake & Output 11/20/23 11/21/23 11/22/23 11/23/23 23:59 23:59 23:59 23:59 Weight 76.204 kg Constitutional Constitutional: no acute distress *Routine HEENT Exam Head: Present normocephalic Eye: Present EOMI ENT: Present mucous membranes dry *Routine Neck Exam Neck: Present full ROM *Routine Respiratory Exam Respiratory: Present symmetric chest movement *Routine Cardiovascular Exam Cardiovascular: Present RRR *Routine Abdominal Exam Abdominal: Present soft, normoactive bowel sounds and tenderness (RUQ) *Routine Rectal Exam Rectal:: deferred *Routine Genitalia Exam Genitalia:: deferred *Routine Extremities Exam Extremities: Present full ROM *Routine Skin Exam Skin: Present intact *Routine Neurological Exam Neurological: Present alert and oriented X3 Assessment and Plan *Assessment and plan (1) Enteritis: Status: Acute Category: Medical Code(s): K52.9 - Noninfective gastroenteritis and colitis, unspecified (2) FANNY (acute kidney injury): Status: Acute Category: Medical Code(s): N17.9 - Acute kidney failure, unspecified (3) Acute uremia: Status: Acute Category: Medical Code(s): N19 - Unspecified kidney failure (4) Type 2 diabetes mellitus with diabetic neuropathy, with long-term current use of insulin: Status: Acute Category: Medical Code(s): E11.40 - Type 2 diabetes mellitus with diabetic neuropathy, unspecified; Z79.4 - FDC (current) use of insulin (5) Hyperlipidemia: Status: Acute Category: Medical Code(s): E78.5 - Hyperlipidemia, unspecified (6) Hypertension: Status: Acute Category: Medical Code(s): I10 - Essential (primary) hypertension Plan 78 year old female presented to [facility] ED for c/o N/V/D since tuesday. PMHX of DM, HTN, and HLD. She denies bloody stools or fevers. Reports RUQ abd pain that is tender to palpation. Her ED workup revealed a creatinine of 1.5, BUN of 54, covid/flu negative. Her CTA demonstrates fluid distension of the small bowel with obstruction and enteritis. She was given 2L of LR, zofran and Azithromycin. The ED physician consulted the hospitalist team for further medical management. I admitted the pt to the medical floor. She will continue to receive IV fluids and antiemetic. Stool panel pending. ENTERITIS -CTA demonstrates fluid distension of the small bowel with obstruction and enteritis -4mg zofran Q 6hr PRN -RUQ pain and tenderness upon palpation -US of RUQ pending -stool panel pending -Lipase and WBC with in normal limits -NPO FANNY ACUTE UREMIA -creatinine of 1.5 and BUN 54 -2 L of LR in ED -LR @ 125mL/hr -repeat BMP -hold nephrotoxic medications DM -ssi -A1c pending HTN HLD -awating home med req FULL CODE Full liquid diet DVT: HEPARIN SQ Rounded on patient after nurse practitioner. Personally examined and interviewed patient. Agree with exam findings and care plan as documented. Function shown some improvement, creatinine 1.3 by morning rounds. Tolerating popsicles. Will advance diet with full liquids. Right upper quadrant ultrasound obtained, no jordi cholecystitis. Repeat labs this afternoon to monitor kidney function and liver function. Will slowly advance diet, monitor for improvement over the next 24 to 48 hours. Still awaiting stool sample for diarrhea panel
--- NOTE | 2023-11-23 02:55 | US_ITS ---
FINAL REPORT CLINICAL HISTORY: RUQ pain FINDINGS: Sonographic images of the right upper quadrant were obtained. The pancreas is partially obscured.The liver has an unremarkable appearance. There is an echogenic focus near the neck of the gallbladder, favor a stone but without well-defined shadowing. There is borderline gallbladder wall thickening measuring 3 mm. There is a small amount of pericholecystic fluid. The common duct measures 3 mm. Limited images of the right kidney are unremarkable. IMPRESSION: Suggest gallstone but with poorly defined shadowing. Recommend MRCP or follow-up ultrasound. Reviewed, Interpreted and Dictated by Reji Ballard III, MD Transcribed by Monie Snow Authenticated and [facility]
[2023-11-23 03:32] LABS: POC Glucose,Bedside 147 (70-110)
[2023-11-23] MEDS: LACTATED RINGERS 1000ML 1,000 ML 125 ML IV ×2 (03:56→12:45)
[2023-11-23 07:45] LABS: Basophils % 0.5 % (0.1-2.0); Eosinophils % 0.8 % (0.1-12.0); Hematocrit 30.5 % (37.0-47.0); Hemoglobin 9.9 g/dL (12.2-16.2); Lymphocytes # 1.2 K/mm3 (0.7-4.5); Lymphocytes % 27.6 % (10-50); Mean Corpuscular HGB Conc 32.4 g/dL (31.8-35.4); Mean Corpuscular Volume 98.7 fl (81-99); Mean Platelet Volume 9.4 fl (7.4-10.4); Monocytes # 0.6 K/mm3 (0.1-1.0); Neutrophils # 2.5 K/mm3 (1.8-7.8); Neutrophils % 58.1 % (37.0-80.0); Platelet Count 208 K/mm3 (142-424); Red Blood Count 3.09 M/mm3 (4.20-5.40); Red Cell Distribution Width 13.7 % (11.5-17.5); White Blood Count 4.3 K/mm3 (4.8-10.8)
[2023-11-23 07:51] LABS: Anion Gap 9.9 mEq/L (5-15); Blood Urea Nitrogen 56 mg/dl (7-17); Calcium 7.7 mg/dl (8.4-10.2); Carbon Dioxide 24 mmol/L (22.0-30.0); Chloride 107 mmol/L (98-107); Creatinine Clearance Estimated 44 mL/min (50-200); Estimated Glomerular Filt Rate 40 ml/min (>60); GFR (African American) 48 ML/MIN (>60); Glucose 100 mg/dl (74-100); Potassium 3.9 mmoL/L (3.5-5.1); Sodium 137 mmol/L (136-145)
--- NOTE | 2023-11-23 07:53 | HMH.PHAINT1 ---
Pharmacy Intervention Comments: Verified patient's home medications using external fill history and spoke with patient at bedside.
[2023-11-23] MEDS: GABAPENTIN 300MG CAPSULE 300 MG PO ×4 (09:40→20:58)
[2023-11-23] MEDS: HEPARIN SODIUM 5,000 UNIT/ML VIAL 5000 UNIT SQ ×2 (09:40→20:56)
[2023-11-23 12:27] LABS: POC Glucose,Bedside 112 (70-110)
[2023-11-23] MEDS: ACETAMINOPHEN 325MG TAB 650 MG PO (12:44)
[2023-11-23 16:43] LABS: POC Glucose,Bedside 170 (70-110)
--- NOTE | 2023-11-23 17:00 | PC.NURSE ---
Patient alert and oriented. VSS. On room air. Up to BR with 1 for voids. No BM this shift so stool sample for diarrhea panel still needs to be collected. Tylenol for complaint of headache. Tolerating full liquid diet. IV fluids infusing per orders. Plan to continue fluids and advance diet.
[2023-11-23 17:25] LABS: Anion Gap 9.9 mEq/L (5-15); Blood Urea Nitrogen 46 mg/dl (7-17); Calcium 7.7 mg/dl (8.4-10.2); Carbon Dioxide 24 mmol/L (22.0-30.0); Chloride 107 mmol/L (98-107); Creatinine Clearance Estimated 52 mL/min (50-200); Estimated Glomerular Filt Rate 48 ml/min (>60); GFR (African American) 58 ML/MIN (>60); Glucose 152 mg/dl (74-100); Potassium 3.9 mmoL/L (3.5-5.1); Sodium 137 mmol/L (136-145)
[2023-11-23] MEDS: humaLOG 100 UNITS/ML 3ML VIAL (SSI) SQ ×2 (17:36→20:57)
--- NOTE | 2023-11-23 17:41 | PC.NURSE ---
Dropped 300 mg gabapentin on floor. Waste witnessed by Olga Pratt RN. Attempted to waste in omni but because it was taken out of patient meds I was unable to have Olga waste medication in omni
[2023-11-23 19:21] LABS: Adenovirus F 40/41, stool Not Detected (NotDetected); Astrovirus Not Detected (NotDetected); Campylobacter Not Detected (NotDetected); Clostridium Difficile A/B, PCR Not Detected (NotDetected); Cryptosporidium Not Detected (NotDetected); Cyclospora Cayetanesis Not Detected (NotDetected); Entamoeba histolytica Not Detected (NotDetected); Enteroaggregative E coli Not Detected (NotDetected); Enteropathogenic E coli Not Detected (NotDetected); Enterotoxigenic E coli Not Detected (NotDetected); Giardia lamblia Not Detected (NotDetected); Plesimonas Shigalloides, PCR Not Detected (NotDetected); Rotavirus A Not Detected (NotDetected); Salmonella, PCR Not Detected (NotDetected); Sapovirus Not Detected (NotDetected); Shiga-like toxin E coli Not Detected (NotDetected); Shigella Enterovasive E coli Not Detected (NotDetected); Vibrio Cholerae Not Detected (NotDetected); Vibrio, PCR Not Detected (NotDetected); Yersinia Entercolitica, PCR Not Detected (NotDetected)
[2023-11-23 20:26] LABS: POC Glucose,Bedside 217 (70-110)
[2023-11-23] MEDS: PANTOPRAZOLE 40MG TABLET 40 MG PO (20:58)
[2023-11-23] MEDS: TEMAZEPAM 15MG CAPSULE 15 MG PO (20:58)
--- NOTE | 2023-11-24 00:54 | PC.NURSE ---
STOOL SAMPLE COLLECTED EARLY THIS SHIFT AND SENT TO THE LAB. STOOL WAS FIRM, BROWN, AND MODERATE AMTS. THERE HAS BEEN NO N/V/D THIS SHIFT.. DAUGHTER AT BEDSIDE.
[2023-11-24 04:00] VITALS: BP 110/55; PULSE 87; RESP 17; TEMP 36.6; O2SAT 93; BMI 32.9
[2023-11-24 05:23] LABS: POC Glucose,Bedside 186 (70-110)
[2023-11-24 06:05] LABS: Basophils # 0.1 K/mm3 (0-0.2); Basophils % 1.2 % (0.1-2.0); Eosinophils # 0.2 K/mm3 (0.0-0.4); Eosinophils % 3.1 % (0.1-12.0); Hematocrit 31.9 % (37.0-47.0); Hemoglobin 9.9 g/dL (12.2-16.2); Lymphocytes % 39.1 % (10-50); Mean Corpuscular Volume 99.9 fl (81-99); Mean Platelet Volume 9.2 fl (7.4-10.4); Monocytes # 0.5 K/mm3 (0.1-1.0); Monocytes % 9.6 % (1.7-9.3); Neutrophils # 2.4 K/mm3 (1.8-7.8); Neutrophils % 46.9 % (37.0-80.0); Platelet Count 224 K/mm3 (142-424); Red Cell Distribution Width 13.8 % (11.5-17.5)
[2023-11-24 06:14] LABS: Alanine Aminotransferase 34 U/L (12-78); Albumin Level 2.8 g/dl (3.5-5.0); Alkaline Phosphatase 130 U/L (38-126); Anion Gap 9.1 mEq/L (5-15); Aspartate Amino Transferase 27 U/L (14-36); Bilirubin,Total 0.4 mg/dl (0.2-1.3); Blood Urea Nitrogen 45 mg/dl (7-17); Calcium 7.8 mg/dl (8.4-10.2); Carbon Dioxide 25 mmol/L (22.0-30.0); Chloride 108 mmol/L (98-107); Creatinine Clearance Estimated 60 mL/min (50-200); Estimated Glomerular Filt Rate 61 ml/min (>60); GFR (African American) 74 ML/MIN (>60); Globulin 2.8 g/dL (1.3-3.2); Glucose 178 mg/dl (74-100); Magnesium 2.2 mg/dl (1.6-2.3); Potassium 4.1 mmoL/L (3.5-5.1); Sodium 138 mmol/L (136-145); Total Protein,Serum 5.6 g/dl (6.3-8.2)
--- NOTE | 2023-11-24 07:51 | EXP.DC.SUM ---
General Admission date:: 11/23/23 Discharge date: 11/24/23 HPI HPI HPI: 78 year old female presented to [facility] ED for c/o N/V/D since tuesday. PMHX of DM, HTN, and HLD. She denies bloody stools or fevers. Reports RUQ abd pain that is tender to palpation. Her ED workup revealed a creatinine of 1.5, BUN of 54, covid/flu negative. Her CTA demonstrates fluid distension of the small bowel with obstruction and enteritis. She was given 2L of LR, zofran and Azithromycin. The ED physician consulted the hospitalist team for further medical management. I admitted the pt to the medical floor. She will continue to receive IV fluids and antiemetic. Stool panel pending. Hospital Course Hospital Course Hospital Course: 78 year old female presented to [facility] ED for c/o N/V/D since tuesday. PMHX of DM, HTN, and HLD. She denies bloody stools or fevers. Reports RUQ abd pain that is tender to palpation. Her ED workup revealed a creatinine of 1.5, BUN of 54, covid/flu negative. Her CTA demonstrates fluid distension of the small bowel with obstruction and enteritis. She was given 2L of LR, zofran and Azithromycin. The ED physician consulted the hospitalist team for further medical management. Admitted to medicine with response to IV fluids. Had improvement in p.o. intake, able to advance to regular diet. 1 bowel movement during admission that was solid. No further emesis. Meeting criteria for discharge home with close follow-up as an outpatient. Problems addressed as follows: ENTERITIS - Admitted to medicine for treatment of gastroenteritis. Appears infectious as her had similar symptoms preceding hers. Was having vomiting and diarrhea prior to admission. CTA of the abdomen obtained showing distention of some small bowel loops with enteritis but no transition point. Admitted for medical management. Initiated on IV fluids because of FANNY. Diet gradually advanced. Has been able to tolerate p.o. intake and keep it down with no further emesis. Had a bowel movement overnight that was formed. Right upper quadrant pain evaluated with ultrasound. Has gallstones but no obstruction or cholecystitis. Stool panel pending, but given formed stool, low suspicion for C. difficile. Symptoms most consistent with infectious gastroenteritis. Continue to advance to usual diet. Stable for discharge home FANNY ACUTE UREMIA -creatinine of 1.5 and BUN 54 on admission. Improved with IV fluids. Tolerating p.o. fluids. Creatinine 0.9 BUN 29 on morning of discharge. DM -Blood sugar low during admission within a normal range. Treated with sliding scale insulin. She is tolerating p.o. intake, resume home insulin regimen at discharge. HTN HLD -Hold home medications during admission given soft blood pressure and FANNY. Okay to resume home meds at discharge Exam Data for Last 24 hours Vital signs and Labs for Last 24 Hours: Temp Pulse Resp BP Pulse Ox O2 Del Method 97.8 F 87 17 110/55 L 93 L Room Air 11/24/23 04:00 11/24/23 04:00 11/24/23 04:00 11/24/23 04:00 11/24/23 04:00 11/24/23 06:42 Laboratory Results - last 24 hr 11/23/23 06:25: Sodium 137, Potassium 3.9, Chloride 107, Carbon Dioxide 24, Anion Gap 9.9, BUN 56 H, Creatinine 1.30 H, Estimated Creat Clear 44, Estimated GFR 40 L, Est GFR ( Amer) 48 L, Glucose 100 D, Calcium 7.7 L 11/23/23 12:08: POC Glucose 112 H 11/23/23 16:36: POC Glucose 170 H 11/23/23 16:44: Sodium 137, Potassium 3.9, Chloride 107, Carbon Dioxide 24, Anion Gap 9.9, BUN 46 H, Creatinine 1.10 H, Estimated Creat Clear 52, Estimated GFR 48 L, Est GFR ( Amer) 58 L D, Glucose 152 H D, Calcium 7.7 L 11/23/23 19:58: POC Glucose 217 H 11/24/23 05:05: POC Glucose 186 H 11/24/23 05:28: WBC 5.0, RBC 3.20 L, Hgb 9.9 L, Hct 31.9 L, MCV 99.9 H, MCH 31.0, MCHC 31.0 L, RDW 13.8, Plt Count 224, MPV 9.2, Neut % (Auto) 46.9, Lymph % (Auto) 39.1, [place] % (Auto) 9.6 H, Eos % (Auto) 3.1, Baso % (Auto) 1.2, Neut # (Auto) 2.4, Lymph # (Auto) 2.0, [place] # (Auto) 0.5, Eos # (Auto) 0.2, Baso # (Auto) 0.1, Sodium 138, Potassium 4.1, Chloride 108 H, Carbon Dioxide 25, Anion Gap 9.1, BUN 45 H, Creatinine 0.90, Estimated Creat Clear 60, Estimated GFR 61, Est GFR ( Amer) 74 D, Glucose 178 H, Calcium 7.8 L, Magnesium 2.2, Total Bilirubin 0.4, AST 27 D, ALT 34 D, Alkaline Phosphatase 130 H, Total Protein 5.6 L, Albumin 2.8 L D, Globulin 2.8, Albumin/Globulin Ratio 1.0 L I & O for Last 24 hours: Intake & Output 11/21/23 11/22/23 11/23/23 11/24/23 23:59 23:59 23:59 23:59 Intake Total 2616 / 3281 1099 / 1099 Output Total 700 / 900 200 / 200 Balance 1916 / 2381 899 / 899 Weight 76.204 kg 75.614 kg 79.107 kg Constitutional Constitutional: no acute distress, obese, chronically ill appearing and cooperative *Routine HEENT Exam Head: Present normocephalic Eye: Present EOMI and PERRL ENT: Present mucous membranes moist *Routine Neck Exam Neck: Present supple; Absent lymphadenopathy *Routine Respiratory Exam Respiratory: Present CTA bilaterally *Routine Cardiovascular Exam Cardiovascular: Present RRR *Routine Abdominal Exam Abdominal: Present soft and normoactive bowel sounds; Absent tenderness *Routine Rectal Exam Patient deferred: visual exam *Routine Exam Patient deferred: external exam *Routine Extremities Exam Extremities: Absent cyanosis, clubbing or edema Comments: Charcot feet deformity and hammertoes bilaterally *Routine Skin Exam Skin: Present warm; Absent rash *Routine Neurological Exam Neurological: Present alert, oriented X3 and moving all extremities; Absent altered mental status Results Data Completed and Pending Labs on day of discharge: Labs from last 24 hours 11/24/23 11/24/23 11/23/23 05:28 05:05 19:58 WBC 5.0 RBC 3.20 L Hgb 9.9 L Hct 31.9 L MCV 99.9 H MCH 31.0 MCHC 31.0 L RDW 13.8 Plt Count 224 MPV 9.2 Neut % (Auto) 46.9 Lymph % (Auto) 39.1 [place] % (Auto) 9.6 H Eos % (Auto) 3.1 Baso % (Auto) 1.2 Neut # (Auto) 2.4 Lymph # (Auto) 2.0 [place] # (Auto) 0.5 Eos # (Auto) 0.2 Baso # (Auto) 0.1 Sodium 138 Potassium 4.1 Chloride 108 H Carbon Dioxide 25 Anion Gap 9.1 BUN 45 H Creatinine 0.90 Estimated Creat Clear 60 Estimated GFR 61 Est GFR ( Amer) 74 D Glucose 178 H POC Glucose 186 H 217 H Calcium 7.8 L Magnesium 2.2 Total Bilirubin 0.4 AST 27 D ALT 34 D Alkaline Phosphatase 130 H Total Protein 5.6 L Albumin 2.8 L D Globulin 2.8 Albumin/Globulin Ratio 1.0 L 11/23/23 11/23/23 11/23/23 16:44 16:36 12:08 WBC RBC Hgb Hct MCV MCH MCHC RDW Plt Count MPV Neut % (Auto) Lymph % (Auto) [place] % (Auto) Eos % (Auto) Baso % (Auto) Neut # (Auto) Lymph # (Auto) [place] # (Auto) Eos # (Auto) Baso # (Auto) Sodium 137 Potassium 3.9 Chloride 107 Carbon Dioxide 24 Anion Gap 9.9 BUN 46 H Creatinine 1.10 H Estimated Creat Clear 52 Estimated GFR 48 L Est GFR ( Amer) 58 L D Glucose 152 H D POC Glucose 170 H 112 H Calcium 7.7 L Magnesium Total Bilirubin AST ALT Alkaline Phosphatase Total Protein Albumin Globulin Albumin/Globulin Ratio 11/23/23 06:25 WBC RBC Hgb Hct MCV MCH MCHC RDW Plt Count MPV Neut % (Auto) Lymph % (Auto) [place] % (Auto) Eos % (Auto) Baso % (Auto) Neut # (Auto) Lymph # (Auto) [place] # (Auto) Eos # (Auto) Baso # (Auto) Sodium 137 Potassium 3.9 Chloride 107 Carbon Dioxide 24 Anion Gap 9.9 BUN 56 H Creatinine 1.30 H Estimated Creat Clear 44 Estimated GFR 40 L Est GFR ( Amer) 48 L Glucose 100 D POC Glucose Calcium 7.7 L Magnesium Total Bilirubin AST ALT Alkaline Phosphatase Total Protein Albumin Globulin Albumin/Globulin Ratio DS: Diagnosis Discharge Diagnosis (1) Enteritis: Status: Acute Code(s): K52.9 - Noninfective gastroenteritis and colitis, unspecified (2) FANNY (acute kidney injury): Status: Acute Code(s): N17.9 - Acute kidney failure, unspecified (3) Acute uremia: Status: Acute Code(s): N19 - Unspecified kidney failure (4) Type 2 diabetes mellitus with diabetic neuropathy, with long-term current use of insulin: Status: Acute Code(s): E11.40 - Type 2 diabetes mellitus with diabetic neuropathy, unspecified; Z79.4 - manager organizational (current) use of insulin (5) Hyperlipidemia: Status: Acute Code(s): E78.5 - Hyperlipidemia, unspecified (6) Hypertension: Status: Acute Code(s): I10 - Essential (primary) hypertension Meds Home Medications and Allergies Home Medications Medication Instructions Recorded Confirmed Type acetaminophen 650 mg 650 mg PO DAILY 10/04/17 11/23/23 History tablet,extended release (Tylenol Arthritis Pain) atorvastatin 40 mg tablet 40 mg PO DAILY 90 days #90 tabs 10/04/17 11/23/23 History estradiol 0.01% (0.1 mg/gram) 1 g vaginal .2 TIMES A WEEK 10/04/17 11/23/23 History vaginal cream (Estrace) methenamine hippurate 1 gram tablet 1 g PO DAILY 30 days #30 tabs 10/04/17 11/23/23 History insulin aspart U-100 100 unit/mL 6 unit SQ TIDWMEAL Diabetes 12/06/19 11/23/23 History subcutaneous solution (Novolog U-100 Insulin aspart) insulin degludec 100 unit/mL (3 18 unit SUB-Q DAILY 12/06/19 11/23/23 History mL) subcutaneous pen (Tresiba FlexTouch U-100 insulin) diclofenac sodium 75 mg 75 mg PO BID 05/03/22 11/23/23 History tablet,delayed release docusate sodium 100 mg capsule 100 mg PO BID 05/03/22 11/23/23 History gabapentin 300 mg capsule 300 mg PO QID 05/03/22 11/23/23 History omeprazole 20 mg capsule,delayed 20 mg PO DAILY 05/03/22 11/23/23 History release temazepam 15 mg capsule 15 mg PO HS 05/03/22 11/23/23 History tramadol 50 mg tablet 50 mg PO DAILY PRN Pain 05/03/22 11/23/23 History ondansetron 4 mg disintegrating 4 mg PO Q8H PRN nausea and 11/24/23 Rx tablet vomiting 5 days #15 tabs New Prescriptions to Start Prescriptions: ondansetron Jorden Resendez Allergies Allergy/AdvReac Type Severity Reaction Status Date / Time hydromorphone [From Dilaudid] AdvReac Intermediate Vomiting Verified 10/26/23 10:30 Discharge Plan Disposition Patient Disposition: Home, Self-Care Condition: Fair Follow up Plan Follow up with: Lizette Cruz APRN [Primary Care Provider] - 12/01/23 12:00 pm Prescriptions/Medication Reconciliation: New ondansetron 4 mg tablet,disintegrating 4 mg PO Q8H PRN (Reason: nausea and vomiting) 5 Days Qty: 15 0RF Continued atorvastatin 40 mg tablet 40 mg PO DAILY 90 Days Qty: 90 Patient Comments: methenamine hippurate 1 gram tablet 1 g PO DAILY 30 Days Qty: 30 Patient Comments: estradiol [Estrace] 0.01 % (0.1 mg/gram) cream 1 g vaginal .2 TIMES A WEEK Rx Instructions: 2 times a week acetaminophen [Tylenol Arthritis Pain] 650 mg tablet extended release 650 mg PO DAILY insulin aspart U-100 [Novolog U-100 Insulin aspart] 100 unit/mL solution 6 unit SQ TIDWMEAL Rx Instructions: SSI in addition to 6 units with meals if needed Tresiba FlexTouch U-100 100 unit/mL (3 mL) insulin pen 18 unit SUB-Q DAILY temazepam 15 MG capsule 15 mg PO HS tramadol 50 MG tablet 50 mg PO DAILY PRN (Reason: Pain) docusate sodium 100 MG capsule 100 mg PO BID gabapentin 300 MG capsule 300 mg PO QID omeprazole 20 MG capsule,delayed release(DR/EC) 20 mg PO DAILY diclofenac sodium 75 MG tablet,delayed release (DR/EC) 75 mg PO BID Problem Reconciliation Problems Reviewed?: Yes Patient Discharge Instructions ACTIVITY: Continue current activity DIET: continue same diet Patient Instructions: DI for Enteritis, DI for Acute Kidney Injury Providers Primary Care Provider: Liztete Cruz Admit Provider: Jorden Resendez Attending Provider: Jorden Resendez
[2023-11-24 08:00] VITALS: BP 149/64; PULSE 101; RESP 20; TEMP 36.5; O2SAT 94
[2023-11-24] MEDS: GABAPENTIN 300MG CAPSULE 300 MG PO ×2 (09:29→13:38)
[2023-11-24] MEDS: HEPARIN SODIUM 5,000 UNIT/ML VIAL 5000 UNIT SQ (09:29)
[2023-11-24] MEDS: ACETAMINOPHEN 325MG TAB 650 MG PO (09:36)
[2023-11-24] MEDS: humaLOG 100 UNITS/ML 3ML VIAL (SSI) SQ (11:55)
[2023-11-24 12:31] LABS: POC Glucose,Bedside 388 (70-110)
--- NOTE | 2023-11-25 12:00 | CARE MANAGER ---
Contacted patient related to hospital discharge. She states she feels weak today, but that she has had no stomach issues. She reports that her blood sugar has been elevated and believes it is because she didn't get her medications like she does at home. I explained that when you are sick it can elevate your blood sugar as well as they don't want to make your blood sugar go too low so they may have adjusted how they gave her medication while she was in the hospital. She verbalized understanding and denies any other questions or concerns. JENNIFER Pfeiffer
[2023-11-26 09:20] LABS: Norovirus Detected (NotDetected)
== END 2023-11-24 14:01 | disposition home or self-care (01) ==
LOC: ER 11-23 01:43 → 2ND 11-23 01:49
PROVIDERS: Nurse Practitioner Critical Care Medicine; Admitting Provider Internal Medicine Adolescent Medicine; Emergency Provider Emergency Medicine; PCP Nurse Practitioner Family; Visit Provider Internal Medicine Adolescent Medicine
DX: K52.9 Noninfective gastroenteritis and colitis, unspecified (principal); N17.9 Acute kidney failure, unspecified; N19 Unspecified kidney failure; E11.40 Type 2 diabetes mellitus with diabetic neuropathy, unspecified; Z79.4 Long term (current) use of insulin; E78.5 Hyperlipidemia, unspecified; I10 Essential (primary) hypertension; E11.9 Type 2 diabetes mellitus without complications
CPT/HCPCS: 36415; 74177; 76705; 80048; 80053; 82009; 82803; 82962; 83605; 83690; 83735; 85025; 87507; 87636; 99285; G0378; J0456; J2405; Q9967

== ENCOUNTER 2024-02-14 10:26 | Outpatient (CLI) | payer MEDICARE, SELFPAY ==
[2024-02-14 11:08] VITALS: BMI 29.6
[2024-02-14 11:29] LABS: Basophils # 0.1 K/mm3 (0-0.2); Basophils % 1.1 % (0.1-2.0); Eosinophils # 0.2 K/mm3 (0.0-0.4); Eosinophils % 4.1 % (0.1-12.0); Hematocrit 34.9 % (37.0-47.0); Hemoglobin 11.3 g/dL (12.2-16.2); Lymphocytes # 1.7 K/mm3 (0.7-4.5); Mean Corpuscular HGB Conc 32.3 g/dL (31.8-35.4); Mean Corpuscular Hemoglobin 31.3 pg (27.0-31.2); Mean Platelet Volume 9.1 fl (7.4-10.4); Monocytes # 0.4 K/mm3 (0.1-1.0); Monocytes % 7.8 % (1.7-9.3); Neutrophils # 2.9 K/mm3 (1.8-7.8); Neutrophils % 55.1 % (37.0-80.0); Platelet Count 237 K/mm3 (142-424); Red Cell Distribution Width 14.4 % (11.5-17.5); White Blood Count 5.3 K/mm3 (4.8-10.8)
[2024-02-14 11:31] VITALS: BP 123/58; PULSE 85; RESP 18; TEMP 36.7; O2SAT 96
[2024-02-14] MEDS: cefTRIAXone 1GM VIAL 1 GM IM (11:31)
[2024-02-14 11:34] LABS: Chloride 107 mmol/L (98-107); Potassium 4.4 mmoL/L (3.5-5.1); Sodium 142 mmol/L (136-145)
[2024-02-14 11:37] LABS: Alanine Aminotransferase 23 U/L (12-78); Albumin Level 3.7 g/dl (3.5-5.0); Albumin/Globulin Ratio 1.1 (1.1-1.8); Alkaline Phosphatase 99 U/L (38-126); Anion Gap 9.4 mEq/L (5-15); Aspartate Amino Transferase 26 U/L (14-36); Bilirubin,Total 0.4 mg/dl (0.2-1.3); Blood Urea Nitrogen 20 mg/dl (7-17); Carbon Dioxide 30 mmol/L (22.0-30.0); Creatinine Clearance Estimated 54 mL/min (50-200); Estimated Glomerular Filt Rate 70 ml/min (>60); GFR (African American) 84 ML/MIN (>60); Globulin 3.3 g/dL (1.3-3.2)
[2024-02-14 11:38] LABS: Calcium 9.2 mg/dl (8.4-10.2); Glucose 92 mg/dl (74-100)
== END 2024-02-14 12:04 | disposition home or self-care (01) ==
LOC: INF 10:28
PROVIDERS: PCP Nurse Practitioner Family; Visit Provider Nurse Practitioner Family
DX: R10.9 Unspecified abdominal pain (principal); N39.0 Urinary tract infection, site not specified
CPT/HCPCS: 36415; 80053; 85025; 96372; J0696

== ENCOUNTER 2024-02-15 10:54 | Outpatient (CLI) | payer MEDICARE, SELFPAY ==
[2024-02-15] MEDS: diphenhydrAMINE 25MG CAPSULE 25 MG PO (11:39)
[2024-02-15 11:58] VITALS: BP 146/66; PULSE 77; RESP 18; TEMP 36.4; O2SAT 97
[2024-02-15] MEDS: cefTRIAXone 1GM VIAL 1 GM IM (11:58)
[2024-02-15 12:28] VITALS: BP 142/74; PULSE 74; RESP 16; TEMP 36.4; O2SAT 97
== END 2024-02-15 12:28 | disposition home or self-care (01) ==
LOC: INF 10:55
PROVIDERS: PCP Nurse Practitioner Family; Visit Provider Nurse Practitioner Family
DX: N39.0 Urinary tract infection, site not specified (principal)
CPT/HCPCS: 96372; J0696

== ENCOUNTER 2024-02-16 10:00 | Outpatient (CLI) | payer MEDICARE, SELFPAY ==
[2024-02-16] MEDS: cefTRIAXone 1GM VIAL 1 GM IM (10:32)
[2024-02-16 10:35] VITALS: BP 127/76; PULSE 78; RESP 18; O2SAT 98
== END 2024-02-16 10:40 | disposition home or self-care (01) ==
LOC: INF 10:00
PROVIDERS: PCP Nurse Practitioner Family; Visit Provider Nurse Practitioner Family
DX: N39.0 Urinary tract infection, site not specified (principal)
CPT/HCPCS: 96372; J0696

== ENCOUNTER 2024-02-17 10:24 | Outpatient (CLI) | payer MEDICARE, SELFPAY ==
--- NOTE | 2024-02-17 10:36 | PC.NURSE ---
Diphehydramine not given. Pt. took at home prior to arrival.
[2024-02-17 10:43] VITALS: BP 133/59; PULSE 76; RESP 16; O2SAT 96
[2024-02-17] MEDS: cefTRIAXone 1GM VIAL 1 GM IM (11:22)
[2024-02-17 11:28] VITALS: BP 133/69; PULSE 80; RESP 16; O2SAT 97
== END 2024-02-17 11:30 | disposition home or self-care (01) ==
LOC: INF 10:25
PROVIDERS: PCP Nurse Practitioner Family; Visit Provider Nurse Practitioner Family
DX: N39.0 Urinary tract infection, site not specified (principal); R10.9 Unspecified abdominal pain
CPT/HCPCS: 96372; J0696

== ENCOUNTER 2024-02-18 09:46 | Outpatient (CLI) | payer MEDICARE, SELFPAY ==
[2024-02-18] MEDS: cefTRIAXone 1GM VIAL 1 GM IM (10:42)
== END 2024-02-18 23:59 | disposition home or self-care (01) ==
LOC: INF 09:49
PROVIDERS: PCP Nurse Practitioner Family; Visit Provider Nurse Practitioner Family
DX: N39.0 Urinary tract infection, site not specified (principal)
CPT/HCPCS: 96372; J0696

== ENCOUNTER 2024-02-23 07:09 | Outpatient (CLI) | payer MEDICARE, SELFPAY ==
--- NOTE | 2024-02-23 07:13 | CT_ITS ---
FINAL REPORT CLINICAL HISTORY: RECURRENT UTI COMPARISON: 11/23/2023 FINDINGS: Axial CT images of the abdomen and pelvis were obtained without intravenous contrast. Coronal and sagittal reformatted images were also obtained.This study was performed with techniques to keep radiation doses as low as reasonably achievable (ALARA). Individualized dose reduction techniques using automated exposure control or adjustment of mA and/or kV according to the patient's size were employed. Abdomen: There are areas of presumed air trapping in the lung bases as well as scar. There are small nonobstructing bilateral renal stones present, as well as calcification in the left renal pyramids. Moderate vascular calcifications are present. The liver, spleen and pancreas have an unremarkable, unenhanced appearance. The gallbladder is partially contracted with wall thickening. No mass or adenopathy is seen. No inflammatory process is identified. Pelvis: Images of the pelvis reveal no evidence of ureteral dilation or ureteral stone.No mass or abnormal fluid collection is identified. The appendix is normal in appearance. A large amount of stool is present in the colon. There is a small umbilical hernia present containing fat, as well as postoperative changes of the lower lumbar spine. IMPRESSION: Multiple nonobstructing bilateral renal stones, with calcifications in the left renal pyramids. No hydronephrosis is identified. Gallbladder partially collapsed with wall thickening. No mass or inflammatory process. Reviewed, Interpreted and Dictated by Reji Ballard III, MD Transcribed by Violeta Delacruz Authenticated and [facility]
== END 2024-02-23 23:59 | disposition home or self-care (01) ==
LOC: RAD 07:10
PROVIDERS: PCP Nurse Practitioner Family; Visit Provider Nurse Practitioner Family
DX: N39.0 Urinary tract infection, site not specified (principal)
CPT/HCPCS: 74176

== ENCOUNTER 2024-04-30 09:01 | Outpatient (CLI) | payer MEDICARE, SELFPAY ==
--- NOTE | 2024-04-30 09:06 | XR_ITS ---
FINAL REPORT CLINICAL HISTORY: SCREENING COMPARISON: None FINDINGS: Using L1-4, the bone mineral density of the spine is 0.930 g/cm2, corresponding to T-score of -1.1 which is consistent with low bone density. Using the left hip, the bone mineral density of the femoral neck is 0.774 g/cm2, corresponding to a T-score of -1.4 which is consistent with low bone density. Using the right hip, the bone mineral density of the femoral neck is 0.665 g/cm2, corresponding to a T-score of -1.7 which is consistent with low bone density. Using the right forearm, the bone mineral density at the one third is 0.508 g/cm?, corresponding to a T-score of -3.1 which is consistent with osteoporosis. FRAX not reported because some T-score at or below -2.5. NOTE: T-score: Standard deviation compared with peak bone mass of young adult mean. *Following the recommendations of the International Society of Bone densitometry, classification of hip BMD is based on the lower of two T-scores; total hip or femoral neck. IMPRESSION: Diminished bone mineral density consistent with osteoporosis. Reviewed, Interpreted and Dictated by Reji Ballard III, MD Transcribed by Shannon Kraus Authenticated and [facility]
--- NOTE | 2024-04-30 09:06 | MM_ITS ---
PROCEDURE INFORMATION: Exam: MG Bilateral Screening 3D Mammography Exam date and time: 04/30/2024 8:57 AM Age: 79 years old Clinical indication: Screening examination TECHNIQUE: Imaging protocol: Bilateral Screening tomosynthesis and 2D mammography including computer-aided detection (CAD) when performed. COMPARISON: 1. MG MM DIG SCREENING MAMM BI W/CAD 03/21/2023 9:36 AM 2. MG MM DIG SCREENING MAMM BI W/CAD 02/16/2022 10:04 AM FINDINGS: MAMMOGRAPHY: Breast composition: There are scattered areas of fibroglandular density. Mass: None. Architectural distortion: None. Calcifications: No suspicious calcifications. Asymmetric density: None. Skin thickening: None. Axillary adenopathy: None. IMPRESSION: No mammographic evidence of malignancy. Annual screening is recommended unless otherwise clinically indicated. ASSESSMENT: BI-RADS Category 1: Negative
== END 2024-04-30 23:59 | disposition home or self-care (01) ==
LOC: RAD 09:02
PROVIDERS: PCP Nurse Practitioner Family; Visit Provider Nurse Practitioner Family
DX: M81.0 Age-related osteoporosis without current pathological fracture (principal); Z12.31 Encounter for screening mammogram for malignant neoplasm of breast; Z78.0 Asymptomatic menopausal state
CPT/HCPCS: 77063; 77067; 77080

== ENCOUNTER 2024-05-22 13:57 | Outpatient (CLI) | payer MEDICARE, SELFPAY ==
--- NOTE | 2024-05-22 14:04 | XR_ITS ---
FINAL REPORT CLINICAL HISTORY: ATYPICAL CHEST PAIN COMPARISON: 09/04/2021 FINDINGS: Two views of the chest were obtained. The heart size and pulmonary vascularity are within normal limits. The mediastinum is normal. There is mild linear atelectasis at the left lung base. There is no pneumothorax. Postoperative changes are noted of the left shoulder. IMPRESSION: Mild linear atelectasis left lung base. Reviewed, Interpreted and Dictated by Reji Ballard III, MD Transcribed by Saloni Gilman Authenticated and [facility]
== END 2024-05-22 23:59 | disposition home or self-care (01) ==
LOC: RAD 14:00
PROVIDERS: PCP Nurse Practitioner Family; Visit Provider Nurse Practitioner Family
DX: R07.89 Other chest pain (principal); R06.02 Shortness of breath
CPT/HCPCS: 71046

== ENCOUNTER 2024-06-04 08:00 | Outpatient (CLI) | payer MEDICARE, SELFPAY ==
[2024-06-04 15:45] LABS: Microscopic, Urine URINE MICROSCOPIC (MICROSCOPIC)
[2024-06-04 16:02] LABS: Appearance,Urine CLEAR (Clear); Bilirubin,Urine Negative (Negative); Blood, Urine Negative (Negative); Color,Urine YELLOW (Yellow); Glucose,Urine (UA) Negative (Negative); Ketones,Urine Negative (Negative); Leukocyte Esterase,Urine 2+ (Negative); Nitrate,Urine POSITIVE (Negative); Protein,Urine Negative (Negative); Urobilinogen,Urine 0.2 EU/dl (0.2)
[2024-06-04 16:53] LABS: Bacteria,Urine 3+ /lpf; WBC,Urine 50-100 #/hpf (0-3)
[2024-06-09 17:30] LABS: Atopobium vaginae Low - 0 Score (.); BVAB2 Low - 0 Score (.); Candida albicans NAA Negative (Negative); Candida glabrata Negative (Negative); Chlamydia Trachomatis NAA Negative (Negative); HSV 1 NAA Negative (Negative); HSV 2 NAA Negative (Negative); Megasphaera 1 Low - 0 Score (.); Neisseria gonorrhoeae NAA Negative (Negative); Trich vag NAA Negative (Negative)
[2024-07-26 16:11] LABS: Atopobium vaginae 0; Bacterial Vaginosis Associated 0; Megasphaera 1 0
[2024-07-26 16:12] LABS: Candida albicans, NAA 0; Candida glabrata, NAA 0
== END 2024-06-04 23:59 | disposition home or self-care (01) ==
LOC: LAB.DROPOF 06-05 10:15
PROVIDERS: PCP Urology; Visit Provider Urology
DX: R32 Unspecified urinary incontinence (principal); N89.8 Other specified noninflammatory disorders of vagina; N39.0 Urinary tract infection, site not specified; B96.20 Unspecified Escherichia coli [E. coli] as the cause of diseases classified elsewhere
CPT/HCPCS: 81001; 87086; 87088; 87186; 87491; 87529; 87591; 87661; 87798; 87801

== ENCOUNTER 2024-06-07 11:00 | Outpatient (RCR) | payer MEDICARE, SELFPAY ==
--- NOTE | 2024-05-28 11:00 | HMH.OTOPEV ---
OT Inpatient Evaluation Rehab OT Outpatient Eval Start: 05/28/24 10:43 Freq: Status: Active Protocol: Document 05/28/24 10:43 MATT (Rec: 05/28/24 11:00 [id number] E-signed By Brayan Arenas, OT Outpatient Therapy Subjective History Subjective History Pt is a 79 year old female who reports to therapy for initial evaluation to bilateral hands for pain and numbness. Pt claims her right hand/arm is the only one affecting her at this time. She complains of pain in the R hand and numbness/tingling starting in hand and radiating up into the shoulder. Pt reports her numbness began ~6 months ago. Pt does have a history of bilateral CTR in the late . Pt is right hand dominant. Pt's AROM is within normal limits at R wrist, but she does have declined strength in right wrist and right hand relationship consultant strength. Pt was positive with Tinel's special test indicating possible median nerve compression at wrist into hand. However, she also tested positive with the Spurling's maneuver at her c- spine indicating possible pinched nerve causing symptoms down the arm. Therapist plans to contact PCP for another order for physical therapy to evaluate her neck. Pt will continue to be seen in order to address right wrist/hand deficits. STG R hand relationship consultant strength: 40 lbs LTG R hand relationship consultant strength: 50 lbs New diagnosis of cancer in past 12 No months? Chief Complaint Pain,Weakness,Decreased Supply Chain Systems Manager Strength Symptom Type Ache,Throb,Dull,Numbness, Tingling Symptoms Relieved By Rest/Positioning Symptoms Aggravated By Physical Activity,Lifting Prior Functional Limitations None Current Functional Limitations Reaching,Lifting,Housework, Dressing,Sleeping,Recreation Activity Symptom Description Intermittent,Activity Dependent Level of pain today (0-10) 3 Pain scale - at its best (0-10) 0 Pain scale - at its worst (0-10) 3 Wrist/Hand Eval Wrist Range of Motion Right Wrist Extension Active Range of Motion ( 64 degrees) Wrist Flexion Active Range of Motion ( 75 degrees) Wrist Radial Deviation Active Range of 28 Motion (degrees) Wrist Ulnar Deviation Active Range of 30 Motion (degrees) Forearm Supination Active Range of 90 Motion (degrees) Forearm Pronation Active Range of Motion 90 (degrees) Wrist Manual Muscle Testing Right Wrist Extension Strength Grade 4- Good- Wrist Flexion Strength Grade 4- Good- Wrist Radial Deviation Strength Grade 4- Good- Wrist Ulnar Deviation Strength Grade 4- Good- Forearm Supination Strength Grade 4- Good- Forearm Pronation Strength Grade 4- Good- Special Tests Wrist Tinel Test Positive Right QuickDASH Activities Please rate your ability to do the following activities in the last week by selecting the number below the appropriate response. 1. Open a tight or new jar. Severe difficulty 2. Do heavy production weigher (e.g., wash Severe difficulty katz, floors). 3. Carry a shopping bag or briefcase. Moderate difficulty 4. Wash your back. Moderate difficulty 5. Use a knife to cut food. Severe difficulty 6. Recreational activities in which you Severe difficulty take some force or impact through your arm, shoulder, or hand (e.g., golf, hammering, tennis, etc.). 7. During the past week, to what extent Moderately has your arm, shoulder or hand problem interfered with your normal social activities with family, friends, neighbors or groups? 8. During the past week, were you Very limited limited in your work or other regular daily activites as a result of your arm, shoulder or hand problem? 9. Arm, shoulder or hand pain. Moderate 10. Tingling (pins and needles) in your Moderate arm, shoulder or hand. 11. During the past week, how much Moderate difficulty difficulty have you had sleeping because of the pain in your arm, shoulder or hand? Quick DASH 38 OT Outpatient Assessment Impairments Problems/Impairments Impaired Strength,Impaired Endurance,Impaired Lifting, Impaired Dressing,Impaired Household Care,Impaired Recreational Activities, Subjective C/O Pain Prognosis Rehab Potential Good Clinical Impression Consistent with Diagnosis Yes Short Term Goals Number of Weeks 3 Increase Strength Yes: 4/5 throughout right wrist Increase Endurance Yes: Pt will tolerate R wrist exercises for ~10 minutes prior to rest. Decrease Subjective C/O Pain Yes: 2/10 at worst Patient to be Ind w/ HEP Yes: AAROM/AROM exercises; yellow theraputty Improve Quick Dash Score Yes: Activities: 25 or below Hand Wood Sander Goals Number of Weeks 6 Increase Strength Yes: 5/5 throughout right wrist Increase Endurance Yes: Pt will tolerate R wrist exercises for ~15 minutes prior to rest. Decrease Subjective C/O Pain Yes: 1/10 at worst Patient to be Ind w/ Advanced HEP Yes: Advanced strengthening exercises Improve Quick Dash Score Yes: Activities: 20 or below Outpatient Therapy Plan of Care Treatment Plan May Include Therapeutic Exercise Including Home Yes Exercise Program Manual Therapy Techniques Yes Neuromuscular Re-education Yes Therapeutic Activities to Return to Yes Previous Functional/Work Level Thermal Modalities Yes Electrical Stimulation Yes Ultrasound/Phonophoresis Yes Iontophoresis Yes Parrafin Yes Orthotics/Bracing/Splinting Yes Massage Yes Eval/Re-Eval Yes Frequency Times per week 2 Duration Number of Weeks 6 Addendums This patient is a candidate for social No or vocational rehab? Patient/Guardian verbally acknowledges Yes understanding of treatment program and consents to further treatment? Patient/Guardian verbally acknowledges Yes understanding of diagnosis, prognosis and goals for treatment? Eval Complexity PT Charges 06562 - Moderate Complexity Shoulder/Elbow Eval Shoulder Objective Measurements Elbow Objective Measurements PHYSICIAN CERTIFICATION: I certify the specified therapy services for Kaci Walker are required, authorized, and reviewed every 30 days.
== END 2024-06-07 11:05 | disposition home or self-care (01) ==
LOC: OT 11:00
PROVIDERS: Visit Provider Nurse Practitioner Family
DX: M79.641 Pain in right hand (principal); M79.642 Pain in left hand; R20.2 Paresthesia of skin
CPT/HCPCS: 97014; 97035; 97110; 97140; 97530; G0283

== ENCOUNTER 2024-06-11 09:09 | Outpatient (CLI) | payer MEDICARE, SELFPAY ==
--- NOTE | 2024-06-11 09:13 | XR_ITS ---
FINAL REPORT CLINICAL HISTORY: Left Knee Pain FINDINGS: LEFT KNEE Three views demonstrate no acute fracture or dislocation. There is moderate tricompartmental degenerative change. Chondrocalcinosis is noted. No acute soft tissue abnormality is seen. IMPRESSION: Degenerative changes without acute bony abnormality. Reviewed, Interpreted and Dictated by Tameka De León MD Transcribed by Summer Vieira Authenticated and [facility]
== END 2024-06-11 23:59 | disposition home or self-care (01) ==
LOC: RAD 09:10
PROVIDERS: PCP Nurse Practitioner Family; Visit Provider Physician Assistant
DX: M25.562 Pain in left knee (principal)
CPT/HCPCS: 73562

== ENCOUNTER 2024-07-17 11:00 | Outpatient (RCR) | payer MEDICARE, SELFPAY ==
--- NOTE | 2024-06-07 12:04 | HMH.PTOPEV ---
PT Outpatient Evaluation Rehab PT Outpatient Evaluation Start: 06/07/24 09:54 Freq: Status: Active Protocol: Document 06/07/24 09:54 MIKO (Rec: 06/07/24 12:04 MIKO [id number]) E-signed By Frannie Richards, PT Outpatient Therapy Subjective History Subjective History Pt is a 79 y/o female who reports onset of R dorsal hand paresthesia months ago that gradually started radiating up her arm to her shoulder. Pt denies neck or shoulder pain. Pt reports tingling is intermittent in nature and improves with bending her elbow or putting her arm above her. Pt denies noted weakness of the RUE or symptoms in her LLE. Pt denies known exacerbating activities/ movements. Pt denies having imaging of her neck. Pt reports she has tried wearing a night splint for CTS at night for 5-6 weeks without improvement. R handed Medical History: Osteoporosis, hypertension, type II diabetes with neuropathy, high cholesterol, macular degeneration, anemia, OA, GERD , lumbar fusion 08/26/22, L rTSA 05/06/23 New diagnosis of cancer in past 12 No months? Chief Complaint Paresthesia Symptom Type Numbness,Tingling Symptoms Relieved By Rest/Positioning Current Functional Limitations Lifting,Housework,Dressing, Sleeping,Recreation Activity Symptom Description Intermittent Level of pain today (0-10) 0 Pain scale - at its best (0-10) 0 Pain scale - at its worst (0-10) 4 Cervical Eval Palpation Cervical Muscles R Upper Trapezius Cervical/Thoracic Palpation Findings Tenderness Flexibility Deficits Upper Trapezius Muscle Length (R) Mild Tightness,(L) Mild Tightness Levaetor Scapulae Muscle Length (R) Mild Tightness,(L) Mild Tightness Scalene Group Muscle Length (R) Mild Tightness,(L) Mild Tightness Sternocleidomastoid Muscle Length (R) Mild Tightness,(L) Mild Tightness Pectoralis Major Muscle Length (R) Mild Tightness,(L) Mild Tightness Pectoralis Minor Muscle Length (R) Mild Tightness,(L) Mild Tightness Passive Joint Mobility Cervical PIVM Dec: R C4/5 L C4/5 R C5/6 L C5/6 R C6/7 L C6/7 AROM Cervical Spine Extension Active Range of 25 Motion (degrees) Cervical Spine Flexion Active Range of 45 Motion (degrees) Cervical Spine Right Lateral Flexion 25 Active Range of Motion (degrees) Cervical Spine Left Lateral Flexion 25 Active Range of Motion (degrees) Cervical Spine Right Rotation Active 45 Range of Motion (degrees) Cervical Spine Left Rotation Active 45 Range of Motion (degrees) MMT Right Deltoid (C5) 5 Normal Biceps Brachii Strength Grade 5 Normal Wrist Extension Strength Grade 5 Normal Triceps Brachii Strength Grade 5 Normal Wrist Flexion Strength Grade 5 Normal Altered Sensation Bilateral Upper extremity Dermatomes C5,C6,C7,C8 Comment decreased light touch sensation R compared to L Special Test C-Spine Foraminal Compression (Spurling) Positive Right Test C-spine Verterbral Accessory Movements Right P/A Center Line that Elicit Symptoms C-Spine Foraminal Distraction Test Positive Shoulder Abduction Relief Test Positive Right Shoulder/Elbow Eval Shoulder Objective Measurements Shoulder ROM Right full ROM shoulder exam standard right Shoulder MMT Lower Trapezius Strength Grade 3+ Fair+ Middle Trapezius Strength Grade 3+ Fair+ Rhomboids Strength Grade 3+ Fair+ Upper Trapezius/Levator Scapulae 4- Good- Shoulder Extension Strength Grade 4- Good- Elbow Objective Measurements Neck Disability Index Neck Disability Index Section 1: Pain Intensity The pain is moderate at the moment Section 2: Personal Care (washing, I can look after myself dressing, etc.) normally without causing extra pain Section 3: Lifting I can only lift very light weights Section 4: Reading I cannot read at all Section 5: Headaches I have no headaches at all Section 6: Concentration I can concentrate fully when I want to with slight difficulty Section 7: Work I can't do any work at all Section 8: Driving I can't drive my car at all Section 9: Sleeping My sleep is moderately disturbed (2-3 hrs. sleepless) Section 10: Recreation I can hardly do any recreation activities because of pain in my neck NDI Score 29 Outpatient Therapy Assessment Impairments Problems/Impairmments Palpation Tenderness,Impaired Range of Motion,Impaired Strength,Impaired Lifting, Impaired Dressing,Impaired Household Care,Impaired Recreational Activities, Subjective C/O Pain,Impaired Self Care/Self Management Prognosis Rehab Potential Good Clinical Impression Consistent with Diagnosis Yes Short Term Goals Number of Weeks 2 Improve Self Care/Self Management Yes Patient to be Ind w/ HEP Yes Stitch Separator Goals Number of Weeks 4-6 Increase Range of Motion Yes: Improve cervical AROM to WNL Increase Strength Yes: Improve scapular strength to 4-4+/5 grossly to assist with posture Improve Neck Disability Index Score Yes: Improve score to 20 or less to improve overall QOL Decrease Subjective C/O Pain Yes: Improve intensity of paresthesia to <4/10 to improve overall QOL Outpatient Therapy Plan of Care Treatment Plan May Include Therapeutic Exercise Including Home Yes Exercise Program Manual Therapy Techniques Yes Neuromuscular Re-education Yes Therapeutic Activities to Return to Yes Previous Functional/Work Level ADL/Self Care Education Yes Dry Needling Yes Thermal Modalities Yes Electrical Stimulation Yes Ultrasound/Phonophoresis Yes Iontophoresis Yes Massage Yes Group Therapy for Medicare Yes Eval/Re-Eval Yes Frequency Times per week 2 Duration Number of Weeks 4-6 Addendums This patient is a candidate for social No or vocational rehab? Patient/Guardian verbally acknowledges Yes understanding of treatment program and consents to further treatment? Patient/Guardian verbally acknowledges Yes understanding of diagnosis, prognosis and goals for treatment? Eval Complexity PT Charges 69171 - Moderate Complexity PHYSICIAN CERTIFICATION: I certify the specified therapy services for Kaci Walker are required, authorized, and reviewed every 30 days.
--- NOTE | 2024-07-10 11:05 | HMH.RHREAS ---
Rehab Reassessment Rehab OP Re-assessment Start: 06/07/24 09:54 Freq: Status: Active Protocol: Document 07/10/24 10:02 JESSICAANDREIA (Rec: 07/10/24 11:05 MIKO [id number]) E-signed By Frannie Richards PT Neck Disability Index Neck Disability Index Section 1: Pain Intensity I have no pain at the moment Section 2: Personal Care (washing, I can look after myself dressing, etc.) normally without causing extra pain Section 3: Lifting Pain prevents me from lifting heavy weights, but I can manage light to Section 4: Reading I can read as much as I want to with no pain in my neck Section 5: Headaches I have slight headaches, which come infrequently Section 6: Concentration I can concentrate fully when I want to with no difficulty Section 7: Work I can only do my usual work, but no more Section 8: Driving I can't drive my car at all Section 9: Sleeping My sleep is midly disturbed (1 -2 hrs sleepless) Section 10: Recreation I can't do any recreation activities NDI Score 17 Rehab Re-assessment Subjective Subjective Pt reports she feels 25% improved overall. Pt reports continued intermittent tingling of the right thumb and back of her mid forearm. Pt reports sometimes paresthesia can refer into the mid arm as well. Pt reports this occurs mostly with sitting in her chair, states she can be sitting up with her arms on her lap or leaning forward on her knees. Pt reports she has started sleeping on her back versus her side which has decreased frequency of paresthesia at night time. Pt reports intensity of tingling as 5/10 at worst and 0/10 at best. Pt reports tingling only lasts a few minutes at a time and then goes away. Pt reports compliance with HEP sometimes which she feels like can irritate the paresthesia at times and other times help. Objective Objective Notes Palpation: 1/4 TTP of C4-5, C5 -6 Cervical AROM: flex 45, ext 40 , RLF 25, LLF 45 (no paresthesia or pain noted with cervical AROM), R rot 50, L rot 60 Scapular strength: 4-/5 grossly Assessment Assessment Notes Pt has attended 8 PT visits consisting of aerobic exercise , cervical mobility, cervical/ scapular strengthening, UE stretching, neural glides, manual therapy and HEP with good tolerance. Pt demonstrated improved NDI score, cervical AROM, and scapular strength since the initial evaluation. Pt continues to report intermittent paresthesia of the RUE although noted decreased frequency at night time with modified sleeping position. Overall, the pt would continue to benefit from skilled PT to further improve paresthesia, cervical AROM, strength and functional activity tolerance to assist with return to PLOF. Patient goals met ST/ LT/4 Goals Not Met cervical AROM, strength, paresthesia intensity Revised Goals n/a Plan Plan Continue initial POC Frequency of Therapy 2x/week Duration of therapy 4 more weeks Time and Billing Re-Eval Time 20 Re-Eval Billing Units 1 PHYSICIAN CERTIFICATION: I certify the specified therapy services for Kaci Walker are required, authorized, and reviewed every 30 days.
== END 2024-07-17 23:59 | disposition home or self-care (01) ==
LOC: PT 11:00
PROVIDERS: Visit Provider Nurse Practitioner Family
DX: M54.2 Cervicalgia (principal); M79.601 Pain in right arm
CPT/HCPCS: 97014; 97110; 97140; 97163; 97530; G0283

== ENCOUNTER 2024-09-08 12:01 | Outpatient (CLI) | payer MEDICARE, SELFPAY ==
--- NOTE | 2024-09-08 | XR_ITS ---
PROCEDURE INFORMATION: Exam: XR Right Shoulder Exam date and time: 09/08/2024 12:16 PM Age: 79 years old Clinical indication: Pain; Shoulder; Right TECHNIQUE: Imaging protocol: Radiologic exam of the right shoulder. Views: 2 or more views. COMPARISON: CR XR SHOULDER RT MIN 2V 09/08/2024 12:16 PM FINDINGS: Bones/joints: The acromioclavicular joint is normal. No visible fracture or dislocation. No calcific tendinitis. Soft tissues: Normal. IMPRESSION: 1. No visible fracture or dislocation. 2. No calcific tendinitis.
--- NOTE | 2024-09-08 | XR_ITS ---
PROCEDURE INFORMATION: Exam: XR Cervical Spine Exam date and time: 09/08/2024 12:16 PM Age: 79 years old Clinical indication: Neck pain TECHNIQUE: Imaging protocol: Radiologic exam of the cervical spine. Views: 4 or 5 views. COMPARISON: NM BONE SCAN WHOLE BODY 12/31/2019 12:19 PM FINDINGS: Bones/joints: Vertebral alignment is maintained. There is preservation of vertebral body heights. No visible fracture. Interpedicular distances are maintained. Odontoid process is intact. Atlantoaxial interval is maintained. There is disc space narrowing at virtually all cervical levels. Soft tissues: Unremarkable. IMPRESSION: 1. No acute fracture. No traumatic subluxation. 2. There is disc space narrowing at virtually all cervical levels.
== END 2024-09-08 23:59 | disposition home or self-care (01) ==
LOC: LAB 12:03
PROVIDERS: PCP Nurse Practitioner Family; Visit Provider Nurse Practitioner Family
DX: M25.511 Pain in right shoulder (principal)
CPT/HCPCS: 72050; 73030

== ENCOUNTER 2024-10-29 15:12 | Outpatient (CLI) | payer MEDICARE, SELFPAY ==
--- NOTE | 2024-10-29 15:17 | XR_ITS ---
FINAL REPORT CLINICAL HISTORY: WEIGHT GAIN, LUNG CRACKLES LOWER EXTREMITY EDEMA COMPARISON: 05/22/2024 FINDINGS: There is mild scarring left lung base. Right lung is clear. There is no evidence of effusion or other pleural disease. The mediastinum has a normal appearance. The cardiac silhouette is unremarkable. IMPRESSION: No acute findings. Reviewed, Interpreted and Dictated by Tameka De León MD Transcribed by Saloni Gilman Authenticated and [facility]
== END 2024-10-29 23:59 | disposition home or self-care (01) ==
LOC: RAD 15:14
PROVIDERS: PCP Nurse Practitioner Family; Visit Provider Nurse Practitioner Family
DX: R09.89 Other specified symptoms and signs involving the circulatory and respiratory systems (principal); R60.0 Localized edema; R63.5 Abnormal weight gain
CPT/HCPCS: 71046

== ENCOUNTER 2025-01-07 17:26 | Emergency (ER) | payer MEDICARE, SELFPAY ==
[2025-01-07] VITALS (8 sets, daily range): BP systolic 149–175; BP diastolic 75–96; PULSE 67–101; RESP 18–22; TEMP 36.4–36.6; O2SAT 95–99; BMI 30.2
--- NOTE | 2025-01-07 17:37 | HMH.EDGENADL ---
Discharge Plan Disposition Patient Disposition: Home, Self-Care Prescriptions Prescriptions: New cefadroxil 500 mg capsule 500 mg PO Q12H Qty: 14 0RF ondansetron 4 mg tablet,disintegrating 4 mg PO DAILY 4 Days Qty: 4 0RF No Action atorvastatin 40 mg tablet 40 mg PO DAILY 90 Days Qty: 90 Patient Comments: acetaminophen [Tylenol Arthritis Pain] 650 mg tablet extended release 650 mg PO DAILY insulin aspart U-100 [Novolog U-100 Insulin aspart] 100 unit/mL solution 6 unit SQ TIDWMEAL Rx Instructions: SSI in addition to 6 units with meals if needed Tresiba FlexTouch U-100 100 unit/mL (3 mL) insulin pen 18 unit SUB-Q DAILY d-mannose 500 mg capsule PO diphenhydramine-acetaminophen [Tylenol PM Extra Strength] 25-500 mg tablet 1 tab PO HS PRN losartan 50 mg tablet 50 mg PO DAILY (DME) FreeStyle Lite Strips Strip See Rx Instructions .ROUTE .MEDSUPPLY Qty: 10 Patient Comments: USE 1 STRIP TO CHECK GLUCOSE THREE TIMES DAILY Rx Instructions: As directed oxycodone-acetaminophen 5-325 mg tablet PO PRN losartan 25 mg tablet 25 mg PO DAILY furosemide 20 mg tablet 20 mg PO DAILY levothyroxine 50 mcg tablet 50 mcg PO alendronate 70 mg tablet 70 mg PO QWEEK estradiol 0.01 % (0.1 mg/gram) cream See Rx Instructions vaginal .COMPLEX Qty: 42.5 2RF Rx Instructions: Using finger technique daily for two weeks and then 3x weekly vaginally; oxybutynin chloride 10 mg tablet extended release 24hr 10 mg PO DAILY 90 Days Qty: 90 0RF Gemtesa 75 mg tablet 75 mg PO DAILY 30 Days Qty: 30 2RF tramadol 50 MG tablet 50 mg PO DAILY PRN (Reason: Pain) gabapentin 300 MG capsule 300 mg PO QID omeprazole 20 MG capsule,delayed release(DR/EC) 20 mg PO DAILY diclofenac sodium 75 MG tablet,delayed release (DR/EC) 75 mg PO BID Referrals Follow up/Referrals: Lizette Cruz APRN [Primary Care Provider] - See instructions Activity Restrictions/Add. Instructions Additional Instructions/Restrictions: Please take the antibiotic as prescribed, please do not stop until it is fully completed. Please follow-up with your primary doctor for further management. If your symptoms worsen or you have concern for your health please come back to the emergency department for further management. Clinical Impressions Clinical Impression: Nausea & vomiting Instructions Patient Instructions: DI for Diarrhea and Traveler's Diarrhea -- Adult, DI for Diarrhea and Traveler's Diarrhea -- Child, DI for Nausea -- Adult, DI for Nausea -- Child Print Language Print Language: Sami Discharge ED Provider: Nghia Lopez Adult HPI General Chief complaint: Nausea/Vomiting/Diarrhea Stated complaint: Nausea,body aches Time Seen by Provider: 01/07/25 17:35 History of Present Illness HPI narrative: Patient is a 79-year-old female past medical history of diabetes, hypertension, stroke presenting for nausea, vomiting and diarrhea. According to family at bedside patient's was not eating much a couple of days ago and over the last 2 days has had a biscuits and very little loss. Patient has also had worsening of her lower extremity neuropathy and is complaining of abdominal pain. Patient said that the abdominal pain waxes and wanes. She has had no hematemesis or bloody diarrhea. Patient said that she is due for her Ozempic shot as well. At this time patient denies chest pain, shortness of breath, fevers, chills Related Data Home Medications ?Medication ?Instructions ?Recorded ?Confirmed acetaminophen 650 mg 650 mg PO DAILY 10/04/17 12/19/24 tablet,extended release (Tylenol Arthritis Pain) atorvastatin 40 mg tablet 40 mg PO DAILY 90 days #90 tabs 10/04/17 12/19/24 insulin aspart U-100 100 unit/mL 6 unit SQ TIDWMEAL Diabetes 12/06/19 12/19/24 subcutaneous solution (Novolog U-100 Insulin aspart) insulin degludec 100 unit/mL (3 18 unit SUB-Q DAILY 12/06/19 12/19/24 mL) subcutaneous pen (Tresiba FlexTouch U-100 insulin) diclofenac sodium 75 mg 75 mg PO BID 05/03/22 12/19/24 tablet,delayed release gabapentin 300 mg capsule 300 mg PO QID 05/03/22 12/19/24 omeprazole 20 mg capsule,delayed 20 mg PO DAILY 05/03/22 12/19/24 release tramadol 50 mg tablet 50 mg PO DAILY PRN Pain 05/03/22 12/19/24 blood sugar diagnostic (Shereen #10 ea 05/08/24 12/19/24 Lite Strips) losartan 25 mg tablet 25 mg PO DAILY 05/08/24 12/19/24 losartan 50 mg tablet 50 mg PO DAILY 05/08/24 12/19/24 oxycodone-acetaminophen 5 mg-325 tab PO PRN 05/08/24 12/19/24 mg tablet d-mannose 500 mg capsule mg PO 06/04/24 12/19/24 diphenhydramine 25 1 tab PO HS PRN 06/18/24 12/19/24 mg-acetaminophen 500 mg tablet (Tylenol PM Extra Strength) alendronate 70 mg tablet 70 mg PO QWEEK 10/29/24 12/19/24 furosemide 20 mg tablet 20 mg PO DAILY 10/29/24 12/19/24 levothyroxine 50 mcg tablet 50 mcg PO 10/29/24 12/19/24 Previous Rx's ?Medication ?Instructions ?Recorded estradiol 0.01% (0.1 mg/gram) See Rx Instructions vaginal 10/29/24 vaginal cream .COMPLEX #42.5 grams oxybutynin chloride 10 mg 10 mg PO DAILY 90 days #90 tabs 10/29/24 tablet,extended release 24 hr vibegron 75 mg tablet (Gemtesa) 75 mg PO DAILY 30 days #30 tabs 10/29/24 cefadroxil 500 mg capsule 500 mg PO Q12H #14 caps 01/07/25 ondansetron 4 mg disintegrating 4 mg PO DAILY 4 days #4 tabs 01/07/25 tablet Allergies Allergy/AdvReac Type Severity Reaction Status Date / Time hydromorphone (From Dilaudid) AdvReac Intermediate Vomiting Verified 12/19/24 10:06 [facility] Disclaimer: The information contained in this section may have been updated after the patient was seen, as this information can be updated by other users. Medical History History of recurrent UTI (urinary tract infection) Noncompliance with treatment Diabetic foot ulcer Encounter for pre-operative cardiovascular clearance Abnormal electrocardiogram [ECG] [EKG] Diabetes mellitus, type 2 Hyperlipidemia Hypertension Family History Other Family history of hypertension Social History (Reviewed 12/19/24 @ 10:06 by ÁLVARO Guadalupe Smoking Status: Never smoker alcohol intake: never counseling provided: provider counseling substance use type: denies use current occupational status: other Travel in the last 8 weeks: None household members: spouse housing: house current occupational exposures/hazards: No caffeine: Yes Have you lived/traveled outside [place] in past 30 days?: No Contact w/someone who lives/traveled outside US past 30 days?: No Exposure to someone with infectious disease in past 14 days?: No Do you have a fever (greater than 100.4 F or 38 C)?: No Have you tested positive for COVID-19: No Exposed to someone with COVID-19 in past 14 days?: No Do you have a sore throat?: No Do you have a cough?: No Do you have any weakness?: No Do you have any diarrhea?: No Are you experiencing any unusual bleeding?: No Do you have any muscle aches/pain?: No Do you have any abdominal pain?: No Are you experiencing loss of taste or smell?: No Other Medical History Have you received the Flu Vaccine for this season: No Have you received the Pneumonia Vaccine: Yes ROS Obtained: Yes All systems reviewed & no additional complaints except as documented Physical Exam General General appearance: alert and in no apparent distress Respiratory Respiratory exam: Present normal lung sounds bilaterally; Absent respiratory distress, wheezes or stridor Cardiovascular Cardiovascular exam: Present regular rate Abdominal Exam Abdominal exam: Present soft and tenderness (Mild generalized); Absent distention, guarding, rebound or rigidity Extremities Exam Extremities exam: Present normal inspection Back Exam Back exam: Present normal inspection Neurological Exam Neurological exam: Present alert and oriented X3 Medical Decision Making Medical Records Screening: Per USPSTF and CDC recommendations, given the prevalence of disease in our region, it is our hospital?s policy to screen for HIV and viral Hepatitis for all patients aged 18 and over and those with ongoing risk factors. Andres Inquiry Pt receiving controlled substance: No Vital Signs: 01/07/25 17:43 01/07/25 18:00 01/07/25 18:30 Temperature 97.6 F Temperature Source Oral Pulse Rate 89 86 Pulse Rate [Left Radial] 96 H Respiratory Rate 22 Blood Pressure 165/95 H 154/76 H Blood Pressure [Right Arm] 170/84 H Blood Pressure Mean 118 127 Blood Pressure Mean [Right Arm] 112 Blood Pressure Source [Right Arm] Automatic Cuff Blood Pressure Position Blood Pressure Position [Right Arm] Supine 02 Sat by Pulse Oximetry 96 95 97 Oxygen Delivery Method Room Air 01/07/25 19:00 01/07/25 20:05 01/07/25 20:18 Temperature Temperature Source Pulse Rate 88 101 H Pulse Rate [Left Radial] 101 H Respiratory Rate 18 Blood Pressure 157/77 H 175/91 H Blood Pressure [Right Arm] 175/96 H Blood Pressure Mean Blood Pressure Mean [Right Arm] 122 Blood Pressure Source [Right Arm] Blood Pressure Position Blood Pressure Position [Right Arm] Sitting 02 Sat by Pulse Oximetry 97 98 99 Oxygen Delivery Method Room Air 01/07/25 20:30 01/07/25 22:22 Temperature 97.8 F Temperature Source Pulse Rate 92 H 67 Pulse Rate [Left Radial] Respiratory Rate 18 Blood Pressure 156/75 H 149/80 H Blood Pressure [Right Arm] Blood Pressure Mean Blood Pressure Mean [Right Arm] Blood Pressure Source [Right Arm] Blood Pressure Position Sitting Blood Pressure Position [Right Arm] 02 Sat by Pulse Oximetry 96 Oxygen Delivery Method Room Air Lab Data Lab Results 01/07/25 17:36: POC Glucose 230 H 01/07/25 17:41: WBC 4.6 L, RBC 3.94 L, Hgb 12.2, Hct 36.3 L, MCV 92.1, MCH 31.0, MCHC 33.6, RDW 12.0, Plt Count 225, MPV 11.1 H, Neut % (Auto) 53.5, Lymph % (Auto) 33.2, Ingham % (Auto) 11.2 H, Eos % (Auto) 1.5, Baso % (Auto) 0.4, Neut # (Auto) 2.4, Lymph # (Auto) 1.5, [place] # (Auto) 0.5, Eos # (Auto) 0.1, Baso # (Auto) 0.0, Sodium 138, Potassium 4.2, Chloride 107, Carbon Dioxide 25, Anion Gap 10.2, BUN 15, Creatinine 0.70, Estimated Creat Clear 54, Estimated GFR 81, Est GFR ( Amer) 98, Glucose 240 H, Hemoglobin A1c 7.5 H, Calcium 9.2, Phosphorus 2.8, Magnesium 1.7, Total Bilirubin 0.4, AST 29, ALT 22, Alkaline Phosphatase 115, Total Protein 7.2, Albumin 3.9, Globulin 3.3 H, Albumin/Globulin Ratio 1.2, Lipase 36, Acetone Level None detected, HCV Ab FREIDA w/Rflx PCR Qn Negative 01/07/25 18:38: VBG pH 7.47 H, VBG pCO2 35.9, VBG pO2 46.9 H, VBG HCO3 25.4, VBG Total CO2 26.5, VBG O2 Saturation 85.1 H, VBG Base Excess 1.7, VBG Lactic Acid 1.4 01/07/25 19:00: Lactate 1.0 01/07/25 19:14: POC Glucose 209 H 01/07/25 20:42: Urine Color Yellow, Urine Appearance Clear, Urine pH 7.0, Ur Specific Provencal 1.010, Urine Protein Negative, Urine Glucose (UA) Negative, Urine Ketones Negative, Urine Blood Negative, Urine Nitrate Negative, Urine Bilirubin Negative, Urine Urobilinogen 0.2, Ur Leukocyte Esterase 1+ A, Urine RBC None, Urine WBC 5-10, Ur Squamous Epith Cells Occasional, Urine Bacteria 3+ 01/07/25 17:41 01/07/25 17:41 Orders (Tests/Meds): ED MEDICATIONS Discontinued Medications Generic Name Dose Route Start Last Admin Trade Name Freq PRN Reason Stop Dose Admin Acetaminophen 1,000 mg 01/07/25 20:32 01/07/25 20:34 Acetaminophen 500mg Tab PO 01/07/25 20:33 1,000 mg ONCE ONE Administration Lactated Ringer's 1,000 mls @ 999 mls/hr 01/07/25 18:12 01/07/25 18:14 Lactated Ringer's 1000 Ml Bag IV 01/07/25 19:12 999 mls/hr .Q1H1M ONE Administration Iopamidol 75 ml 01/07/25 19:31 01/07/25 19:32 Iopamidol-370 (76%);100ml Bottle IV 01/07/25 19:32 75 ml ONCE ONE Administration Sodium Chloride 10 ml 01/07/25 19:31 01/07/25 19:32 Sodium Chloride 0.9% 10ml Syr (Rad Only) IV 02/06/25 19:30 10 ml NEEDED PRN Administration Maintain IV Site ORDERS Category Date Time Status CT abdomen pelvis w con Stat Cat Scan 01/07/25 18:36 Completed Chest XR -- portable [XR chest portable] Stat Exams 01/07/25 19:27 Completed Acetone, Serum (Rapid) Stat Lab 01/07/25 17:41 Completed CBC w/Auto Diff [Complete Blood Count Auto Diff] Stat Lab 01/07/25 17:41 Completed Comprehensive Metabolic Panel Stat Lab 01/07/25 17:41 Completed HIV Combo Stat Lab 01/07/25 17:41 Received Hemoglobin A1C Stat Lab 01/07/25 17:41 Completed Hepatitis C Ab Qual. W/ RFX Stat Lab 01/07/25 17:41 Completed Lactic Acid Stat Lab 01/07/25 19:00 Completed Lipase Stat Lab 01/07/25 17:41 Completed Magnesium Stat Lab 01/07/25 17:41 Completed POC Glucose,Bedside Routine Lab 01/07/25 17:36 Completed POC Glucose,Bedside Routine Lab 01/07/25 19:14 Completed Phosphorous Stat Lab 01/07/25 17:41 Completed Urinalysis and Microscopic Stat Lab 01/07/25 20:42 Completed Blood Culture Stat Micro 01/07/25 18:58 Received Urine Culture Stat Micro 01/07/25 20:42 Received Venous Blood Gas Stat RT 01/07/25 18:38 Completed Medical Decision Narrative: In summary, this 79-year-old female presents to the emergency department today with nausea, vomiting and diarrhea. On initial evaluation patient is hemodynamically stable alert and in no acute distress. She is neuro intact, and has mild generalized abdominal tenderness. Have concern for possible dehydration due to reported p.o. intake. Differential diagnosis includes but is not limited to pancreatitis, gastroenteritis, colitis, UTI, electrolyte abnormality. Based on these concerns, I ordered CT, labs. ECG personally interpreted demonstrates no acute ST elevation, sinus rhythm, QTc within normal limits. Patient received fluids and pain medication for treatment. Labs personally reviewed demonstrate leukopenia, no anemia, alkalosis, hyperglycemia. XR personally interpreted demonstrates no pneumonia or pneumothorax. CT imaging personally interpreted demonstrate no pneumoperitoneum or bowel obstruction. On reassessment patient feeling significantly better sitting up in bed and asking to go home. She was able to p.o and CT and urinalysis concerning for possible UTI along with patient's having dysuria. Patient was given antibiotics and Zofran. Admission as considered and will defer at this time as patient is able to p.o and feeling much better. Critical Care Critical Care Time Critical Care Time: No
--- OUTSIDE RECORDS SUMMARY | 2025-01-07 17:37 | XMS_ITS | Continuity of Care Document ---
Author Organization [facility] Address [address] [place] [address] Care Team Providers Care Cyber Security Architect Name Role Phone LUIS SCHNEIDER Primary Care Provider Assessment No assessment recorded. Plan of Treatment Reminders Order Date Submit Date Provider Last Modified By Organization Details Last Modified Time Details Appointments NEW ANIVAL Lund 2024 10:00A M MAINOR BENNETT MD Not available Not available Not available Lab None record ed. Referral orthop edic surgeo n referr al 2024 025 [email or web address] Mainor Bennett MD, [address] , [place], [address], 12/24/2024 13:11:41 Procedures None record ed. Surgeries None record ed. Imaging None record ed. Medication Orders None record ed. Patient TargetsNo targets recorded. Patient InstructionsNo instructions recorded. Reason for Referral Orthopedic Surgeon Referral for Osteoarthritis of left knee joint Referring Physician: Yong Murray, Orthopedic Surgery, Encounter Date: 12/24/2024 Results Created Date Observation Date Name Description Value Unit Range Abnormal Flag Note LastModifiedBy Organization Detail LastModifiedTime 12/25/1912/24/2024 XR, shoul maciel, 2 or more view Owen swartz [facility] [address] [place] [address] [phone] Patibarby lund Name: KACI lund : [birth year] [address] 8 Orderi ng Provid er: YONG MURRAY EXAM DATE: 2024 EXAM: XR LT SHOULD ER COMPLE TE RADIOG RAPHIC VIEWS: 3 COMPAR WILL: 024 HISTOR Y: Follow -up of prior surger y. FINDIN GS: Again seen is a left should er revers e total arthro plasty . There is no eviden ce of loosen ing or compli cation . No fractu re is identi fied. There are mild degene rative change s at the acromi oclavi cular joint. IMPRES MAUREEN: 1. There is a left should er revers e total arthro plasty in place withou t eviden ce of compli cation . Interp reted By: Carmelita long MD Electr onical ly Signed By: Carmelita long MD on 12/25/19 10:00 AM INTERFACE [facility] [place] [address], [place], [address], 12/24/2024 10:05:19 12/25/1912/24/2024 XR, knee, 1 or 2 view Owen swartz [facility] [address] [place] [address] Patien t Name: KACI lund : [birth year] 49 [address] 8 Orderi ng Provid er: YONG SHAFER EXAM DATE: 2024 EXAM: XR LT KNEE 1 OR 2 VIEWS COMPAR WILL: None. HISTOR Y: Left knee pain. FINDIN GS: No fractu re is identi fied. There are severe degene rative change s in the left knee. There is near comple te medial joint space loss. There is modera te to severe margin al spurri ng. There is a probab le osteoc hondra l lesion along the medial femora l condyl e. There is a large joint effusi on. There are severe vascul ar calcif icatio ns. IMPRES MAUREEN: 1. There are severe degene rative change s in the left knee. Interp reted By: Carmelita long MD Electr onical ly Signed By: Carmelita long MD on 4/7/20 25 11:21 AM INTERFACE [facility] [place] [address] , [place], [address], 12/24/2024 11:27:00 Result Notes None recorded. Procedures Surgical History Date Name Laterality Status Provider Name and Address Organization Details Recorded Time 5 Injection Joint/Bursa, Major completed YONG MURRAY PA-C [facility] [place], [address], [facility] 12/27/2024 08:50:12 Imaging Results None recorded. Procedure Notes None recorded. Medical Equipment None Reported. Allergies Allergen ID Allergen Name Allergen Category Reaction Reaction Severity Criticality Documentation Date Start Date Code Code System Note Provider Name and Address Organization Details Recorded Time [id number] hydromorp meli medicatio n Not available Not available Not available 11/16/2022 3423 RxNorm Jesus Micky cruz, [facility] 3 17:12:00 Medications Name Sig Start Date Stop Date Status Note LastModified by Organization Details LastModified Time losartan 50 mg tablet TAKE ONE TABLET BY MOUTH ONCE A DAY active Not Available Not Available No t Available cyclobenzap rine 10 mg tablet Take 1 tablet 3 times a day by oral route as needed. 2021 active Not Available Not Available Not Avai lable atorvastati n 40 mg tablet active Not Available Not Available Not Available methocarbam ol 500 mg tablet active Not Available Not Available Not Available promethazin e-DM 6.25 mg-15 mg/5 mL oral syrup active Not Available Not Available Not Available Percocet 7.5 mg-325 mg tablet Take 1 tablet every 6 hours by oral route as needed. 03/30 completed Not Available Not Available Not Available gabapentin 600 mg tablet active Not Available Not Available Not Available doxycycline hyclate 100 mg capsule active Not Available Not Available N ot Available oxybutynin chloride ER 10 mg tablet,exte nded release 24 hr TAKE ONE TABLET BY MOUTH ONCE A DAY active Not Available Not Available No t Available azithromyci n 250 mg tablet active Not Available Not Available Not Available benzonatate 200 mg capsule active Not Available Not Available Not Available hydrocodone 5 mg-acetamin ophen 325 mg tablet 03/30 completed Not Available Not Available Not Available tramadol 50 mg tablet active Not Available Not Available No t Available methenamine hippurate 1 gram tablet active Not Available Not Available Not Available famotidine 20 mg tablet active Not Available Not Available Not Available methocarbam ol 750 mg tablet Take 1 tablet 3 times a day by oral route. active Not Available Not Available No t Available temazepam 15 mg capsule TAKE ONE CAPSULE BY MOUTH AT BEDTIME FOR SLEEP active Not Available Not Available No t Available benzonatate 100 mg capsule 04/07 completed Not Available Not Available Not Available levothyroxi ne 50 mcg tablet TAKE ONE TABLET BY MOUTH ONCE A DAY active Not Available Not Available No t Available cephalexin 500 mg capsule TAKE ONE CAPSULE BY MOUTH EVERY TWELVE HOURS FOR 7 DAYS active Not Available Not Available No t Available pantoprazol e 40 mg tablet,ivette yed release active Not Available Not Available Not Available lisinopril 10 mg tablet active Not Available Not Available Not Available losartan 25 mg tablet active Not Available Not Available No t Available docusate sodium 100 mg capsule active Not Available Not Available N ot Available gabapentin 300 mg capsule active Not Available Not Available Not Available omeprazole 20 mg capsule,del ayed release TAKE 1 CAPSULE BY MOUTH ONCE A DAY active Not Available Not Available No t Available diclofenac sodium 75 mg tablet,ivette yed release active Not Available Not Available Not Available lisinopril 5 mg tablet 04/07 completed Not Available Not Available Not Available furosemide 20 mg tablet TAKE ONE TABLET BY MOUTH EVERY DAY FOR 5 DAYS active Not Available Not Available No t Available levofloxaci n 500 mg tablet active Not Available Not Available Not Available methylpredn isolone 4 mg tablets in a dose pack TAKE 1 TABLET BY MOUTH DIRECTED active Not Available Not Available No t Available cefdinir 300 mg capsule active Not Available Not Available Not Available oxycodone 5 mg tablet active Not Available Not Available No t Available enoxaparin 40 mg/0.4 mL subcutaneou s syringe active Not Available Not Available No t Available Novolog FlexPen U-100 Insulin aspart 100 unit/mL (3 mL) subcutaneou s active Not Available Not Available Not Available nitrofurant oin monohydrate /macrocryst als 100 mg capsule active Not Available Not Available Not Available BD Ultra-Fine Mini Pen Needle 31 gauge x 3/16 active Not Available Not Available Not Available pregabalin 75 mg capsule 04/07 completed Not Available Not Available Not Available pregabalin 150 mg capsule 04/07 completed Not Available Not Available Not Available FreeStyle Lite Strips USE STRIP TO CHECK GLUCOSE 3 TIMES A DAY active Not Available Not Available No t Available Tresiba FlexTouch U-100 insulin 100 unit/mL (3 mL) subcutaneou s pen active Not Available Not Available Not Available Vitals Date Recorded Body height Body mass index (BMI) Body weight Provider Name and Address Organization Details Last Updated DateTime 12/24/2024 156.21 cm 29.9 kg/m2 99194.37 g Shauna Wells [facility] 12/24/2024 10:05:02 Social History Question Answer Notes LastModified by Organizat ion Details LastModified Time Tobacco Smoking Status Never Smoker Emma Roldanholz [facility] 04/07/2022 10:51:27 Do You Or Have You Ever Used Any Other Forms Of Tobacco Or Nicotine? No [email or web address] Information not available 11/16/2022 Sex: Unknown Functional Status None recorded. Mental Status None recorded. Family History Relationship Description Onset Age of this Age Resolved Age Notes LastModified by Organization Details LastModified Time Unspecified Relation Malignant neoplastic disease [email or web address] Not available 04/07 10:50:59 Unspecified Relation Diabetes mellitus [email or web address] Not available 04/07 10:51:05 Unspecified Relation Hypertensive disorder [email or web address] Not available 04/07 10:51:12 Medical History Condition Response Diabetes Y Hypertension Y High Cholesterol Y Gynecological HistoryNo gynecological history recorded. Obstetrics History GPAL:G 0 P 0 0 0 0 Past Encounters Encounter ID Performer Location Encounter Start Date Encounter Closed Date Diagnosis/Indication Diagnosis SNOMED-CT Code Diagnosis ICD10 Code Diagnosis Note [id number] YONG MURRAY PA-C [facility] [address] [address] 12/24/2024 09:38:32 12/24/2024 11:05:19 History of reverse prosthetic total arthroplasty of left shoulder [id number] Z96.612 Assessment : Status 20 months post left reverse total shoulder arthroplas ty Plan: Continue using the shoulder as tolerated. She would like to consult for left knee arthroplas ty. She requests Dr. Arreaga. We will arrange this. Steroid injection into the left knee was tolerated well today. Follow-up as needed in regards to the shoulder. Osteoarthr itis of left knee joint [id number] 41215 M17.12 Health Concerns Section Related Observation LastModified by Organization Detai ls LastModified Time None Recorded Concern Status LastModified by Organization Details LastModified Time None Recorded Payers Encounter Date Sequence Insurance Name Policy Number Policy [place] Covered Member ID [place] Member ID Guarantor Name 12/24/2024 1 MEDICARE-28msec (MEDICARE) Kaci Walker [id number] Kaci Walker 12/24/2024 2 [facility] [employer] (MEDICARE SUPPLEMENT) Kaci Walker [id number] Kaci Walker Notes Date Note Type Note Provider Name and Address Organization Details Recorded Time 12/24/2024 text/html Patient comes in today for FU {{Right Left* Bi lateral}} {{Knee Ankle Hip Thigh Lower Leg Shoulder Elb ow Wrist/Hand Hum erus#}}.Patient states they are {{better* worse same}} than last visit.Patient {{reports new injury since last visit denies new injury since last visit*}}Patient reports no pain, occasional dull ache.The patient {{has does not have*}} numbness or tinglingThey {{have do not have*}} popping and clickingThey {{are* are not}} able to sleep comfortably with this injury.Overall, the patient would say that their pain {{is* is not}} well-controlled at this time. YONG MURRAY PA-C [address] [place], [address], [facility] 12/27/2024 08:51:29 OBGyn Episode No OBEpisode recorded.
--- NOTE | 2025-01-07 17:40 | ECG_ITS ---
APPROVED REPORT Exam: Resting ECG HR:91 bpm ECG Measurements Heart Rate 91 AXES GA 153 P 63 QRSd 83 QRS 13 QT 345 T 40 QTc 394 Conclusion SINUS RHYTHM NORMAL ECG Electronically signed by : PEYTON MUÑOZ, 01/08/2025 22:18:57
[2025-01-07 17:43] LABS: POC Glucose,Bedside 230 (70-110)
[2025-01-07] MEDS: LACTATED RINGERS 1000ML 1,000 ML 999 ML IV (18:14)
--- NOTE | 2025-01-07 18:36 | CT_ITS ---
PROCEDURE INFORMATION: Exam: CT Abdomen And Pelvis With Contrast Exam date and time: 01/07/2025 7:30 PM Age: 79 years old Clinical indication: Abdominal pain; Additional info: Generalized abdominal pain, vomiting TECHNIQUE: Imaging protocol: Computed tomography of the abdomen and pelvis with contrast. Radiation optimization: All CT scans at this facility use at least one of these dose optimization techniques: automated exposure control; mA and/or kV adjustment per patient size (includes targeted exams where dose is matched to clinical indication); or iterative reconstruction. Contrast material: ISOVUE; Contrast volume: 75 ml; Contrast route: IV; COMPARISON: CT ABDOMEN PELVIS WO CON 02/23/2024 7:21 AM FINDINGS: Liver: Normal. No mass. Gallbladder and biliary ducts: Normal. No calcified stones. No ductal dilation. Pancreas: Normal. No ductal dilation. Spleen: Multiple granulomatous calcifications within the spleen. Adrenal glands: Normal. No mass. Kidneys and ureters: Normal. No hydronephrosis. Stomach and bowel: Unremarkable. No obstruction. No mucosal thickening. Appendix: No evidence of appendicitis. Intraperitoneal space: Unremarkable. No free air. No significant fluid collection. Vasculature: Unremarkable. No abdominal aortic aneurysm. Lymph nodes: Unremarkable. No enlarged lymph nodes. Urinary bladder: Mild wall thickening and intraluminal gas in the urinary bladder. Reproductive: Unremarkable as visualized. Bones/joints: Degenerative changes in the spine. L5-S1 fusion hardware. Soft tissues: Unremarkable. IMPRESSION: Mild wall thickening and intraluminal gas in the urinary bladder. Suspicious for infection. Evidence of prior granulomatous exposure.
[2025-01-07 18:49] LABS: Basophils % 0.4 % (0.1-2.0); Eosinophils # 0.1 Kmm3 (0.0-0.4); Eosinophils % 1.5 % (0.1-12.0); Hematocrit 36.3 % (37.0-47.0); Hemoglobin 12.2 g/dL (12.2-16.2); Lymphocytes # 1.5 K/mm3 (0.7-4.5); Lymphocytes % 33.2 % (10-50); Mean Corpuscular HGB Conc 33.6 g/dL (31.8-35.4); Mean Corpuscular Volume 92.1 fl (81-99); Mean Platelet Volume 11.1 fl (7.4-10.4); Monocytes # 0.5 K/mm3 (0.1-1.0); Monocytes % 11.2 % (1.7-9.3); Neutrophils # 2.4 K/mm3 (1.8-7.8); Neutrophils % 53.5 % (37.0-80.0); Nucleated Red Blood Cells # 0 10^3/uL; Nucleated Red Blood Cells % 0 %; Platelet Count 225 K/mm3 (142-424); Red Blood Count 3.94 M/mm3 (4.20-5.40); Red Cell Distribution Width-SD 40.7 fL; White Blood Count 4.6 K/mm3 (4.8-10.8)
[2025-01-07 18:54] LABS: Albumin Level 3.9 g/dl (3.5-5.0); Chloride 107 mmol/L (98-107); Potassium 4.2 mmoL/L (3.5-5.1); Sodium 138 mmol/L (136-145)
[2025-01-07 18:57] LABS: Alanine Aminotransferase 22 U/L (12-78); Albumin/Globulin Ratio 1.2 (1.1-1.8); Alkaline Phosphatase 115 U/L (38-126); Anion Gap 10.2 mEq/L (5-15); Aspartate Amino Transferase 29 U/L (14-36); Bilirubin,Total 0.4 mg/dl (0.2-1.3); Blood Urea Nitrogen 15 mg/dl (7-17); Calcium 9.2 mg/dl (8.4-10.2); Carbon Dioxide 25 mmol/L (22.0-30.0); Creatinine Clearance Estimated 54 mL/min (50-200); Estimated Glomerular Filt Rate 81 ml/min (>60); GFR (African American) 98 ML/MIN (>60); Globulin 3.3 g/dL (1.3-3.2); Glucose 240 mg/dl (74-100); Phosphorous 2.8 mg/dl (2.5-4.5); Total Protein,Serum 7.2 g/dl (6.3-8.2)
[2025-01-07 18:58] LABS: Magnesium 1.7 mg/dl (1.6-2.3)
[2025-01-07 19:06] LABS: Lactate Venous 1.4 mmol/L (0.4-2.0); VBG Base Excess 1.7 mmol/L (-2.4-2.3); VBG HCO3 25.4 mmol/L (23-30); VBG Oxygen Saturation 85.1 % (50-70); VBG PCO2 35.9 mmol/L (35-51); VBG PH 7.47 mmol/L (7.31-7.41); VBG PO2 46.9 mmol/L (28-40); VBG Total CO2 26.5 mmol/L (23-27)
[2025-01-07 19:08] LABS: Hepatitis C Ab Qual. W/ RFX NEGATIVE (Negative)
[2025-01-07 19:09] LABS: Acetone, Serum (Rapid) None Detected (None Detect)
--- NOTE | 2025-01-07 19:18 | PC.NURSE ---
Pt aox4, nad noted, rr even and non labored, skin pwd. 1st Liter of LR still infusing, 1st Liter of NS pulled primed and hanging on bed, will begin once first infusion is complete and orders verified with attending.
--- NOTE | 2025-01-07 19:26 | PC.NURSE ---
pt taken to radiology at this time.
--- NOTE | 2025-01-07 19:27 | XR_ITS ---
PROCEDURE INFORMATION: Exam: XR Chest Exam date and time: 01/07/2025 7:35 PM Age: 79 years old Clinical indication: Other: Weakness TECHNIQUE: Imaging protocol: Radiologic exam of the chest. Views: 1 view. COMPARISON: CR XR CHEST 2V 10/29/2024 3:19 PM FINDINGS: Lungs: Parenchymal scarring in the left lower lobe. No focal consolidation. Pleural spaces: Unremarkable. No pleural effusion. No pneumothorax. Heart/Mediastinum: Unremarkable. No cardiomegaly. Bones/joints: Left shoulder arthroplasty. IMPRESSION: No acute disease.
[2025-01-07 19:28] LABS: POC Glucose,Bedside 209 (70-110)
[2025-01-07 19:29] LABS: Lipase 36 U/L (23-300)
[2025-01-07] MEDS: IOPAMIDOL-370 (76%);100ML BOTTLE 75 ML IV (19:32)
[2025-01-07] MEDS: SODIUM CHLORIDE 0.9% 10ML SYR (RAD ONLY) 10 ML IV (19:32)
[2025-01-07] MEDS: ACETAMINOPHEN 500MG TAB 1000 MG PO (20:34)
[2025-01-07 20:47] LABS: Microscopic, Urine URINE MICROSCOPIC (MICROSCOPIC)
[2025-01-07 20:53] LABS: Appearance,Urine CLEAR (Clear); Bilirubin,Urine Negative (Negative); Blood, Urine Negative (Negative); Color,Urine YELLOW (Yellow); Glucose,Urine (UA) Negative (Negative); Ketones,Urine Negative (Negative); Leukocyte Esterase,Urine 1+ (Negative); Nitrate,Urine Negative (Negative); Protein,Urine Negative (Negative); Urobilinogen,Urine 0.2 EU/dl (0.2)
[2025-01-07 21:04] LABS: Hemoglobin A1C 7.5 % (4.0-6.0)
--- NOTE | 2025-01-07 21:11 | PC.NURSE ---
water given for PO challenege
[2025-01-07 21:29] LABS: Bacteria,Urine 3+ /lpf; Squamous Epithelial Cell,Urine Occasional #/hpf (0-5)
--- NOTE | 2025-01-07 21:46 | PC.NURSE ---
family and patient updated regarding POC. Pt aox3, NAD noted, RR even and non labored, skin pwd, food given upon request
--- NOTE | 2025-01-07 21:59 | PC.NURSE ---
provider at the bedside
--- NOTE | 2025-01-09 14:15 | PC.NURSE ---
I spoke with about the pts prelim urine culture results. No change needed in her treatment plan.
[2025-01-10 11:09] LABS: HIV Combo NEGATIVE (Negative)
--- NOTE | 2025-01-11 17:44 | PC.NURSE ---
URINE CULTURE DISCUSSED WITH DR KAM, NO NEW ORDERS
== END 2025-01-07 22:22 | disposition home or self-care (01) ==
PROVIDERS: Emergency Provider Student in an Organized Health Care Education/Training Program; PCP Nurse Practitioner Family
DX: R10.817 Generalized abdominal tenderness (principal); R11.2 Nausea with vomiting, unspecified; E11.65 Type 2 diabetes mellitus with hyperglycemia; Z11.59 Encounter for screening for other viral diseases; Z11.4 Encounter for screening for human immunodeficiency virus [HIV]
CPT/HCPCS: 71045; 74177; 80053; 81001; 82009; 82803; 82962; 83036; 83605; 83690; 83735; 84100; 85025; 86803; 87040; 87086; 87088; 87186; 87389; 93005; 96360; 99285; J7120; Q9967

== ENCOUNTER 2025-05-16 11:00 | Outpatient (RCR) | payer MEDICARE, SELFPAY | END 2025-05-16 23:59 | disposition home or self-care (01) | LOC: PT 11:00 | PROVIDERS: PCP Nurse Practitioner Family; Visit Provider Orthopaedic Surgery | DX: Z47.89 Encounter for other orthopedic aftercare (principal); Z96.659 Presence of unspecified artificial knee joint | CPT/HCPCS: 97016; 97110; 97162 ==

== ENCOUNTER 2025-05-24 10:00 | Outpatient (RCR) | payer MEDICARE, SELFPAY | END 2025-05-24 23:59 | disposition home or self-care (01) | LOC: PT 10:00 | PROVIDERS: PCP Nurse Practitioner Family; Visit Provider Orthopaedic Surgery | DX: Z47.89 Encounter for other orthopedic aftercare (principal); Z96.659 Presence of unspecified artificial knee joint | CPT/HCPCS: 97016; 97110 ==

== ENCOUNTER 2025-09-09 13:23 | Outpatient (CLI) | payer MEDICARE, SELFPAY ==
--- OUTSIDE RECORDS SUMMARY | 2020-10-17 11:18 | XMS_ITS | Encounter Summary ---
Author Organization [place] [address] Care Team Providers Care Oil Sprayer Name Role Phone Oswald Hollingsworth DPM Unavailable [phone] Miles Garcia Primary Care Provider [phone] Encounter Details Date Type Department Care Team (Late st Contact Info) Description 10/17/2020 11:18 AM [facility] Hospital Encounter [facility] Referral Lab [address] [place], [place] [id number] Landon Hartmann MD [id number] [place] [address] Low back pain Social History Tobacco Use Types Packs/Day Years Used Date Smoking Tobacco: Never Smokeless Tobacco: Never Alcohol Use Standard Drinks/Week Comments No 0 (1 standard drink = 0.6 oz pur e alcohol) Sexually Active Control Partners Comments Not Currently Male Comments No Sex and Gender Information Value Date Recorded Sex Assigned at Not on file Legal Sex Female 5:01 PM EDT Gender Identity Not on file Sexual Orientation Not on file COVID-19 Exposure Response Date Recorded In the last month, have you been in contact with someone who was confirmed or suspected to have Coronavirus / COVID-19? No / Unsure 01/08/2022 9:12 AM EDT documented as of this encounter Plan of Treatment Upcoming Encounters Date Type Department Care Team (Late st Contact Info) Description 10/01/2025 2:45 PM EST Office Visit [facility] [place] [address] [facility] [address] [place] [address] Oswald Hollingsworth, DPM [address] [address] documented as of this encounter Results * CREATININE (10/17/2020 11:48 AM EST) Creatinine 0.71 0.51 - 1.30 mg/dL 10/17/2020 3:25 PM EST [facility] GFR Afr Am 98 >=60 mL/min/1.7 3 m2 10/17/2020 3:25 PM EST [facility] GFR Non Afr Am 85 >=60 mL/min/1.7 3 m2 10/17/2020 3:25 PM EST [facility] Comment: This estimated GFR was calculated using CKD-EPI equation which is modified based on ethnicity for Non Americans and Americans. Both results are reported since it is not always possible to determine the patient's ethnicity. This equation should only be used for individuals 18 and older. It has not been validated for use with the elderly (>70 years), women, or in some racial or ethnic subgroups, such as Hispanics. The equation will be less accurate in people with differences in nutritional status or muscle mass. Blood Venipuncture / Unknown 10/17/2020 11:48 AM EST 10/17/2020 11:48 AM EST us Landon Hartmann MD CHEMISTRY ORDERABLES Final R esult [facility] [address] [facility] , [place] [address] [facility] [address] [place] [id number] documented in this encounter Visit Diagnoses Diagnosis Low back pain Lumbago documented in this encounter Care Teams Oil Sprayer Relationship Specialty Start Date End Date Miles Garciaw [address] [place] [address] PCP - General Family Medicine 05/02/17 01/06/22 Oswald Hollingsworth DPM [id number] [address] Clerk Cashier-Surgery, Foot & Ankle 08/05/14 documented as of this encounter
--- NOTE | 2025-09-09 13:27 | XR_ITS ---
FINAL REPORT CLINICAL HISTORY: SCREENING COMPARISON: 04/30/2024 FINDINGS: Using left forearm, the bone mineral density of the mid is 0.377 g/cm2, corresponding to T-score of -4.2. The bone mineral density of the left forearm was not measured on previous exams. Using the left hip, the bone mineral density of the femoral neck is 0.785 g/cm2, corresponding to a T-score of -1.3. The bone mineral density change versus baseline is 1.4%. Using the right hip, the bone mineral density of the femoral neck is 0.667 g/cm2, corresponding to a T-score of -1.6. The bone mineral density change versus baseline is 0.3%. NOTE: T-score: Standard deviation compared with peak bone mass of young adult mean. *Following the recommendations of the International Society of Bone densitometry, classification of hip BMD is based on the lower of two T-scores; total hip or femoral neck. IMPRESSION: Diminished bone mineral density of the bilateral femoral necks is consistent with osteopenia. Diminished bone mineral density of the left forearm is consistent with osteoporosis. Reviewed, Interpreted and Dictated by Tameka De León MD Transcribed by Violeta Delacruz Authenticated and [facility]
--- NOTE | 2025-09-09 13:27 | MM_ITS ---
PROCEDURE INFORMATION: Exam: MG Bilateral Screening 3D Mammography Exam date and time: 09/09/2025 1:42 PM Age: 80 years old Clinical indication: Screening examination TECHNIQUE: Imaging protocol: Bilateral Screening tomosynthesis and 2D mammography including computer-aided detection (CAD) when performed. COMPARISON: 1. MG MM DIG SCREENING MAMM BI W/CAD 04/30/2024 8:57 AM 2. MG MM DIG SCREENING MAMM BI W/CAD 03/21/2023 9:36 AM FINDINGS: MAMMOGRAPHY: Breast composition: There are scattered areas of fibroglandular density. Mass: None. Architectural distortion: None. Calcifications: No suspicious calcifications. Asymmetric density: None. Skin thickening: None. Axillary adenopathy: None. IMPRESSION: No mammographic evidence of malignancy. Annual screening is recommended unless otherwise clinically indicated. ASSESSMENT: BI-RADS Category 1: Negative.
--- OUTSIDE RECORDS SUMMARY | 2025-09-09 13:36 | XMS_ITS | Clinical Summary ---
Author Organization [facility] Address [address] [place] [address] Care Team Providers Care Machinist General Name Role Phone Unavailable Primary Care Provider Unavailabl e Social History Tobacco Use Types Packs/Day Years Used Date Smoking Tobacco: Never Assessed Abuse Screen Answer Date Recorded Unsafe at Home or Work/School Not on file Feels Threatened by Someone? Not on file 06/2023 Does Anyone Keep You from Co ntacting Others or Doint Things Outside the Home? Not on file 06/28/2023 Physical Sign of Abuse Present Not on file 1 Housing Stability Answer Date Recorded Current Living Arrangements Not on file 06/19 Potentially Unsafe Housing Conditions Not on genevieve e 06/28/2023 Family and Community Support Answer Stephen e Recorded Help with Day-to-Day Activities Not on file 06/28/2023 Lonely or Isolated Not on file 06/28/2023 Employment Answer Date Recorded Do you want help finding or keeping work or a abelardo b? Not on file 06/28/2023 Disabilities Answer Date Recorded Concentrating, Remembering, or Making Decisions Difficulty Not on file 06/28/2023 Doing Errands Independently Difficulty Not on fi le 06/28/2023 Education Answer Date Recorded Help with school or training? Not on file Preferred Language Not on file 06/28/2023 Comments Unknown Sex and Gender Information Value Date Recorded Sex Assigned at Not on file Legal Sex Female 1:50 PM EDT Gender Identity Not on file Sexual Orientation Not on file Plan of Treatment Health Maintenance Due Date Last Done Comments ANNUAL PHYSICAL 1945 DXA SCAN 1945 HEPATITIS C SCREENING 1945 TDAP/TD VACCINES (1 - Tdap) 1966 Pneumococcal Vaccine 50+ (1 of 1 - PCV) 1997 ZOSTER VACCINE (1 of 2) 1997 RSV Vaccine - Adults (1 - 1-dose 75+ series) 2 INFLUENZA VACCINE 04/19/2025 COVID-19 Vaccine (2023- season) 2025
--- OUTSIDE RECORDS SUMMARY | 2025-09-09 13:36 | XMS_ITS | Clinical Summary ---
Author Organization [facility] Address [address] [place] [address] Care Team Providers Care Tong Hooker Name Role Phone Lizette Cruz JETHRO Primary Care Provider [phone] Karlo Rosanne Whitley MORELOS, DNP Unavailable [phone] Allergies Active Allergy Reactions Criticality Noted Date Comments Hydromorphone Nausea And Vomiting,Anxiety Medium 02/11 Medications Acetaminophen (TYLENOL ARTHRITIS PAIN PO) 018 Active cyanocobalamin (Vitamin B-12) 500 MCG tablet Active cholecalciferol (Vitamin D3) 1.25 MG (55044 UT) capsule Active atorvastatin (Lipitor) 40 MG tablet TAKE ONE TABLET BY MOUTH EVERY NIGHT AT BEDTIME Active glucagon 1 MG injection Active B Hlpojyu-Y-Tsszy Acid (Stress Formula) tablet Take 1 tablet by mouth 1 (one) time each day. Active omeprazole (PriLOSEC) [address] capsule 021 Active temazepam (Restoril) 15 MG capsule 021 Active diclofenac (Voltaren) 75 MG EC tablet 022 Active gabapentin (Neurontin) 300 MG capsule 022 Active traMADol (Ultram) 50 MG tablet Take 1 tablet (50 mg) by mouth daily as needed for severe pain. Active Calcium Polycarbophil (Fiber) 625 MG tablet Take 2 tablets by mouth 1 (one) time each day. Active HYDROcodone-aceta minophen (Franklin) 5-325 MG tablet 023 Active docusate sodium (Colace) 100 MG capsule 023 Active methocarbamol (Robaxin) 750 MG tablet 023 Active ferrous sulfate 325 (65 Fe) MG tablet Take by mouth 3 (three) times a week. Active losartan (Cozaar) 25 MG tablet Take 1 tablet (25 mg) by mouth daily. 024 Active alendronate (Fosamax) 70 MG tablet 1 tab(s) orally once a week for 28 days Active glucose blood (FREESTYLE LITE) test stripIndications: Type 2 diabetes mellitus with hyperglycemia, with long-term current use of insulin USE STRIP TO CHECK GLUCOSE 3 TIMES DAILY 300 each 2 Active furosemide (Lasix) 20 MG tablet Take by mouth. Activ e levothyroxine (Synthroid, Levoxyl) 50 MCG tablet Active Vibegron (Gemtesa) 75 MG tablet Take by mouth. Activ e ondansetron ODT (Zofran-ODT) 4 MG disintegrating tablet DISSOLVE 1 tablet ON THE TONGUE ONCE A DAY FOR 4 DAYS Active insulin degludec (Tresiba FlexTouch) 100 UNIT/ML injection penIndications:Ty pe 2 diabetes mellitus with hyperglycemia, with long-term current use of insulin INJECT 20 UNITS SUBCUTANEOUSLY ONCE DAILY, MAX DAILY DOSE 40 UNITS 30 mL 5 Active pen needle, diabetic (B-D UF III MINI PEN NEEDLES) 31G X 5 MM miscIndications:T ype 2 diabetes mellitus with hyperglycemia, with long-term current use of insulin Use to inject insulin 4+ times daily 200 each 11 Active estradiol (Estrace) 0.1 MG/GM vaginal creamIndications: Recurrent UTI,Postmenopausa l atrophic vaginitis,Urge incontinence,Urin mariana frequency,Urinary urgency Insert 1 g into the vagina 2 times a week. 42.5 g 3 025 2025 Active insulin aspart (NovoLOG FLEXPEN) 100 UNIT/ML injection penIndications:Ty pe 2 diabetes mellitus with hyperglycemia, with long-term current use of insulin Inject 6 units before breakfast, 4 units at lunch and 5 units dinner, plus correction scale 1 u every 50 points blood glucose >150 three times daily to MDD 30 units. 15 mL 5 025 Active dulaglutide 0.75 MG/0.5ML solution auto-injectorIndi cations:Type 2 diabetes mellitus with hyperglycemia, with long-term current use of insulin Inject 0.75 mg under the skin 1 time per week. 2 mL 11 025 2025 Active insulin aspart (NovoLOG) 100 UNIT/ML injection vial Inject 6 units before breakfast, 4 units at lunch and 5 units dinner, plus correction scale 1 u every 50 points blood glucose >150 three times daily to MDD 30 units. 15 mL 5 025 2024 Discontinued Active Problems Problem Noted Date Diagnosed Date Dysuria 08/30/2024 Retinopathy 11/29/2023 Vertebrogenic pain 11/23/2022 Spondylolisthesis of lumbar region 08/26/2022 Painful diabetic neuropathy 11/02/2021 Essential hypertension 09/21/2021 Mixed hyperlipidemia 09/21/2021 Peripheral venous insufficiency 09/21/2021 Polyneuropathy due to type 2 diabetes mellitus 0 09/21/2021 Sciatica 09/21/2021 Sleep disorder 09/21/2021 History of recurrent UTIs 06/02/2020 Intractable back pain 06/02/2020 Acute exacerbation of chronic low back pain 02/2020 Gastroesophageal reflux disease without esophagi tis 02/23/2020 Type 2 diabetes mellitus, wi th long-term current use of insulin 02/23/2020 Nonexudative age-related macular degeneration of left eye 06/22/2017 Postmenopausal atrophic vaginitis 06/24/2016 Resolved Problems Problem Noted Date Diagnosed Date Resolved Date Recurrent UTI 06/08/2022 06/09/2025 Acute constipation 09/21/2021 Dyslipidemia 06/02/2020 06/09/2022 Diabetes mellitus with neuropathy 08/26/2016 06/09/2022 Encounters Date Type Department Care Team Description 08/28/2025 Telephone [facility] Endocrinology [address] [place] [address] Sarahi Nunez PA 08/28/2025 [facility] Endocrinology [address] [place] [address] Sarahi Nunez PA 07/29/2025 Telephone [facility] Endocrinology [address] [place] [address] Sarahi Nunez PA 06/13/2025 Telephone [facility] Endocrinology [address] [place] [address] Sarahi Nunez PA from Last 3 Months Immunizations Immunization Administration Dates Next Due Influenza, high-dose, quadrivalent 07/16/2021, Influenza, injectable, quadrivalent, preservativ e free 07/16/2022,07/03/2020 Moderna COVID-19 Vaccine (Computer Lab Assistant) 12+ years ,10/15/2020 Pneumococcal Polysaccharide PPV23 06/04/2020 TD (adult), 2 Lf tetanus tox oid, preservative free, adsorbed 11/23/1996 Zoster, live 07/05/2016 Family History Medical History Relation Name Comments Heart attack Father Lung cancer Father Heart attack Mother Relation Name Status Comments Father Mother Social History Tobacco Use Types Packs/Day Years Used Date Smoking Tobacco: Never Smokeless Tobacco: Never Tobacco Cessation:Counseling Given: Not Answered Alcohol Use Standard Drinks/Week Comments No 0 (1 standard drink = 0.6 oz pur e alcohol) PHQ-2 Answer Date Recorded Patient Health Questionnaire-2 Score 0 02/28/2024 PHQ-2A Answer Date Recorded Patient Health Questionnaire-2 Score 0 07/07/2023 Comments No Sex and Gender Information Value Date Recorded Sex Assigned at Not on file Legal Sex Female 8:05 PM EDT Gender Identity Not on file Sexual Orientation Not on file Last Filed Vital Signs Vital Sign Reading Time Taken Comments Blood Pressure 132/80 06/04/2025 9:57 AM EDT Pulse 82 06/04/2025 9:57 AM EDT Temperature 36.8 C (98.2 F) 03/16/2021 2:45 PM EDT Respiratory Rate - - Oxygen Saturation - - Inhaled Oxygen Concentration - - Weight 72.3 kg (159 lb 6.3 oz) 06/04/2025 9:57 A M EDT Height 154.9 cm (5' 1 ) 06/04/2025 9:57 AM EDT Body Mass Index 30.12 06/04/2025 9:57 AM EDT Plan of Treatment Upcoming Encounters Date Type Department Care Team (Late st Contact Info) Description 09/18/2025 11:00 AM EST Office Visit [facility] Endocrinology [address] [place] [address] Sarahi Nunez PA [address] [place] [address] 11/21/2025 10:20 AM EST Office Visit [facility] [address] [place] [address] Rosanne Dietrich APRN, DNP [address] [place] [address] Health Maintenance Due Date Last Done Comments [facility]-Bone Density Scan 1945 [facility]-Hepatitis C Screening 1945 [facility]-Medicare Annual Wellness (AWV) 1945 [facility]-/Child/Adol SDOH Screenings 1945 Diabetes: Dental Exam 1957 [facility]- SDOH Screenings 1965 [facility]-Adult SDOH Screenings 1965 [facility]-DTaP,Tdap,and Td Vaccines (1 - Tdap) 11/24/1996 11/23/1996 [facility]-Zoster Vaccines (2 of 3) 08/30/2016 07/05/2016 [facility]-Depression Screening 02/27/2025 02/28/2024 [id number] Vaccine ( season) 2025 07/06/2024, 09/21/2023, 08/09/2022, Additional history exists [facility]-Influenza Vaccine (#1) 05/20/202507/03, 08/01/2023, 07/16/2022, Additional history exists [facility]-Diabetes: Hemoglobin A1C 09/03/2025 06/04/2025, 12/03/2024, 08/29/2024, Additional history exists [facility]-Pneumococcal Vaccine: 50+ Years Completed 09/09/2022, 06/04/2020 [facility]-RSV Vaccine: 60+ Years or Completed 08/09/2023 [facility]-Obesity Intervention Completed 025, 05/23/2025, 02/20/2025, Additional history exists HPV Vaccines (No Doses Required) Completed [facility]-HIB Vaccines Aged Out No longer e ligible based on patient's age to complete this topic [facility]-Hepatitis A Vaccines Aged Out No longer eligible based on patient's age to complete this topic [facility]-IPV Vaccines Aged Out No longer e ligible based on patient's age to complete this topic [facility]-Rotavirus Vaccines Aged Out No lo nger eligible based on patient's age to complete this topic Procedures Procedure Name Priority Date/Time Associated Diagnosis Comments POCT GLYCOSYLATED HEMOGLOBIN (HGB A1C) Routine 06/04/2025 10:16 AM EDT Type 2 diabetes mellitus with hyperglycemia, with long-term current use of insulin ([facility]) from Last 3 Months or Most Recently Relevant to Health Maintenance Results * POCT glycosylated hemoglobin (Hb A1C) (06/04/2025 10:16 AM EDT) POCT Hemoglobin A1C 7.3 <5.7% Non-Diabet ic % [facility] Kit Lot Number [id number] [facility] Kit Expiration Date 02/2027 [facility] Blood Venous blood specimen / Unknown 06/04/2025 10:16 AM EDT us Sarahi GILBERT POINT OF CARE TEST EN TER/EDIT ORDERABLES Final Result [facility] [address] [place] [address] from Last 3 Months or Most Recently Relevant to Health Maintenance [place] [address] [facility] Care Teams Tong Hooker Relationship Specialty Start Date End Date Lizette Cruz APRN [facility] [address] [address] PCP - General 11/23/22 Rosanne Dietrich APRN, DNP [address] [id number] Nurse Practitioner Urology 11/20/24
--- OUTSIDE RECORDS SUMMARY | 2025-09-09 13:37 | XMS_ITS | Referral Summary ---
Author Organization [facility] ([place], [place], [place], [place], [place]) Address [address] [place] [address] Care Team Providers Care Overhead Crane Technician Name Role Phone Lizette Cruz APRN Primary Care Provider [phone] Allergies Active Allergy Reactions Criticality Noted Date Comments Hydromorphone Nausea And Vomiting,Anxiety High 10/03/2020 felt like I would vomiting and felt awful all night Medications atorvastatin (LIPITOR) 40 MG tablet Take 1 tablet (40 mg total) by mouth nightly. 2 Active temazepam (RESTORIL) 15 mg capsule Take 1 capsule (15 mg total) by mouth nightly. 2 Active vit A/vit C/vit E/zinc/copper (ICAPS AREDS ORAL) Take 1 capsule by mouth 2 (two) times daily. Active cyanocobalamin (VITAMIN B-12) 1000 MCG tablet Take 1 tablet (1,000 mcg total) by mouth daily. Active ferrous sulfate 325 (65 FE) MG tablet Take 1 tablet (325 mg total) by mouth 3 (three) times a week MON/WED/FRI. Active losartan (COZAAR) 50 MG tablet Take 1 tablet (50 mg total) by mouth daily. 3 Active insulin aspart U-100 (NovoLOG) 100 unit/mL (3 mL) InPn Inject subcutaneously 3 (three) times daily before meals Sliding Scale Insulin: use as directed. Active omeprazole (PriLOSEC) 20 MG capsule Take 1 capsule (20 mg total) by mouth 2 (two) times daily. 40 capsule 3 Active famotidine (PEPCID) 20 MG tablet Take 1 tablet (20 mg total) by mouth 2 (two) times daily. 40 tablet 3 Active gabapentin (NEURONTIN) 300 MG capsule Take 3 capsules (900 mg total) by mouth nightly. Max Daily Amount: 900 mg Active insulin degludec (Tresiba FlexTouch U-100) 100 unit/mL (3 mL) inpn Inject 20 Units under the skin daily. Active diclofenac sodium (VOLTAREN) 50 MG EC tablet Take 1 tablet (50 mg total) by mouth daily. Active vibegron (Gemtesa) 75 mg tab Take 1 tablet (75 mg total) by mouth daily. 5 Active semaglutide (Ozempic) 1 mg/dose (4 mg/3 mL) pnij 1 MG SUBCUTANEOUSLY ONCE A WEEK; Duration: 28 DAYS Active alendronate (FOSAMAX) 70 MG tablet Take 1 tablet (70 mg total) by mouth once a week. 4 Active Lasix 20 mg tablet Take 1 tablet (20 mg total) by mouth daily. 5 Active levothyroxine (SYNTHROID) 50 MCG tablet Take 1 tablet (50 mcg total) by mouth Daily (0600). 5 Active traMADoL (ULTRAM) 50 mg tablet Take 1 tablet (50 mg total) by mouth nightly. 5 Active cholecalcifero l (VITAMIN D3) 25 mcg (1,000 unit) tablet Take 1 tablet (1,000 Units total) by mouth daily. Active ondansetron (ZOFRAN) 4 MG tablet Take 1 tablet (4 mg total) by mouth 4 (four) times daily as needed for nausea for up to 60 doses. 30 tablet 5 Active gabapentin (NEURONTIN) 300 MG capsule Take 1 capsule (300 mg total) by mouth 3 (three) times daily with meals 1 cap oral three times a day with meals and 3 caps oral at bedtime. Max Daily Amount: 900 mg Active Active Problems Problem Noted Date Diagnosed Date Avascular necrosis of left humeral head 05/06/20 23 Spondylolisthesis of lumbar region 08/26/2022 Diabetic polyneuropathy asso ciated with type 2 diabetes mellitus 11/02/2021 Painful diabetic neuropathy 11/02/2021 Essential hypertension 09/21/2021 Mixed hyperlipidemia 09/21/2021 Sciatica 09/21/2021 Dyslipidemia 06/02/2020 Gastroesophageal reflux disease without esophagi tis 02/23/2020 Insulin dependent type 2 diabetes mellitus 02/22 Resolved Problems Problem Noted Date Diagnosed Date Resolved Date Acute exacerbation of chronic low back pain 02/23/2020 11/26/2022 Social History Tobacco Use Types Packs/Day Years Used Date Smoking Tobacco: Never Passive Smoke Exposure: Past Smokeless Tobacco: Never Tobacco Cessation:Counseling Given: Not Answered Alcohol Use Standard Drinks/Week Comments Never 0 (1 standard drink = 0.6 oz pur e alcohol) Family and Community Support Answer Stephen e Recorded Help with Day to Day Activities Not on file 10/07/2023 Feeling Lonely or Isolated Not on file 10/07 Educational Attainment Answer Date Kasi rded Speak language other than [place] at home Not on file 10/07/2023 Want help with school or training Not on file 10/07/2023 Substance Use Answer Date Recorded Used prescription meds for non-medical reasons N ot on file 10/07/2023 Used illegal drugs past 12 months Not on file 10/07/2023 Comments No Sex and Gender Information Value Date Recorded Sex Assigned at Not on file Legal Sex Female 1:16 PM CDT Gender Identity Not on file Sexual Orientation Not on file Last Filed Vital Signs Vital Sign Reading Time Taken Comments Blood Pressure 113/53 04/02/2025 10:04 AM EDT Pulse 79 04/02/2025 10:04 AM EDT Temperature 36.6 C (97.8 F) 04/02/2025 10:04 AM EDT Respiratory Rate 18 04/02/2025 10:04 AM EDT Oxygen Saturation 99% 04/02/2025 10:04 AM EDT Inhaled Oxygen Concentration - - Weight 72.8 kg (160 lb 9.6 oz) 04/01/2025 7:48 A M EDT Height 156.2 cm (5' 1.5 ) 04/01/2025 7:48 AM EDT Body Mass Index 29.85 04/01/2025 7:48 AM EDT Plan of Treatment Not on file Medical Devices Implanted Type Area Software Development Intern Device Identifier Shelf Expiration Date Model / Serial / Lot Fibergraft Mtrx 12.5c [id number] - [id number] Implanted:Qty : 1 on 08/26/2022 by Jacqui Henriquez MD at [facility] IMPLANTS N/A: Back [employer] 10/07/2024 [id number] / / [id number] Bone Fibers 5.0cc Pliafx [facility]1800-01 - [id number] Implanted:Qty : 1 on 08/26/2022 by Jacqui Henriquez MD at [facility] IMPLANTS N/A: Back LIFENET:LIFENE T TRANSPLANT SRV 01/07/2027 -1800-01 / [id number] / Bone Vivigen Formable Cell [address] [place], [place] [address] - [id number] Implanted:Qty : 1 on 08/26/2022 by Jacqui Henriquez MD at [facility] IMPLANTS N/A: Back LIFENET:LIFENE T TRANSPLANT SRV 08/09/2023 - 2 / [id number] / Imp Vpr Prm Cfxfen Xtab 6x45mm [id number] - [id number] Implanted:Qty : 2 on 08/26/2022 by Jacqui Henriquez MD at [facility] IMPLANTS N/A: Back J &J:DEPUY:DEPUY SPINE [id number] / 5 / Mis Rossy Ply Scrw Set Ti - [id number] Implanted:Qty : 4 on 08/26/2022 by Jacqui Henriquez MD at [facility] IMPLANTS N/A: Back J &J:DEPUY:DEPUY SPINE 0 / 0 / Imp Vpr Prm Cfxfen Xtab 6x40mm [id number] - [id number] Implanted:Qty : 2 on 08/26/2022 by Jacqui Henriquez MD at [facility] IMPLANTS N/A: Back J &J:DEPUY:DEPUY SPINE [id number] / 0 / Nino Spine Viper 6.14x55rg 186-88-035 - [id number] Implanted:Qty : 2 on 08/26/2022 by Jacqui Henriquez MD at [facility] IMPLANTS N/A: Back J &J:DEPUY:DEPUY SPINE 5 / 5 / Cement Spinal Confidence 2839-10-000 - [id number] Implanted:Qty : 1 on 08/26/2022 by Jacqui Henriquez MD at [facility] IMPLANTS N/A: Back J &J:DEPUY:DEPUY SPINE 05/19/2024 0 / / [id number] Plt Hum Prox 3h 80mm Lt [id number] - [id number] Implanted:Qty : 1 on 11/26/2022 by Kashif Ma MD at [facility] IMPLANTS Left: Humerus GENO BIOMET [id number] / [id number] / Scr Bright 3.5x26mm [id number] - [id number] Implanted:Qty : 1 on 11/26/2022 by Kashif Ma MD at [facility] IMPLANTS Left: Humerus BIOMET [id number] / [id number] / Scr Bright Jael 3.5x22mm 8161-35-022 - [id number] Implanted:Qty : 1 on 11/26/2022 by Kashif Ma MD at [facility] IMPLANTS Left: Humerus GENO BIOMET 2 / [id number] / Scr Bright Jael 3.5x26mm 8161-35-026 - [id number] Implanted:Qty : 2 on 11/26/2022 by Kashif Ma MD at [facility] IMPLANTS Left: Humerus GENO BIOMET 6 / [id number] / Scr Bright Jael 3.5x32mm 8161-35-032 - [id number] Implanted:Qty : 3 on 11/26/2022 by Kashif Ma MD at [facility] IMPLANTS Left: Humerus GENO BIOMET 2 / [id number] / Scr Bright Jael 3.5x36mm 8161-35-036 - [id number] Implanted:Qty : 1 on 11/26/2022 by Kashif Ma MD at [facility] IMPLANTS Left: Humerus GENO BIOMET 6 / [id number] / Scr Md Matthew T15 3.5x22mm [id number] - [id number] Implanted:Qty : 1 on 11/26/2022 by Kashif Ma MD at [facility] IMPLANTS Left: Humerus GENO:GENO US [id number] / [id number] / Scr Md Matthew 3.5x24 [id number] - [id number] Implanted:Qty : 2 on 11/26/2022 by Kashif Ma MD at [facility] IMPLANTS Left: Humerus GENO BIOMET [id number] / [id number] / Scr Niraj Mata 3.5x26mm Ns [id number] - [id number] Implanted:Qty : 1 on 11/26/2022 by Kashif Ma MD at [facility] IMPLANTS Left: Humerus GENO BIOMET [id number] / [id number] / Bone Vivigen Formable Cell 5cc Bl-1600-002 - [id number] Implanted:Qty : 1 on 11/26/2022 by Kashif Ma MD at [facility] IMPLANTS Left: Shoulder LIFENET:LIFENE T TRANSPLANT SRV 11/03/2023 BL-1600-00 2 / [id number] / Baseplt Std 25mm Fqc069 - [id number] Implanted:Qty : 1 on 05/06/2023 at [facility] IMPLANTS Left: Shoulder TORNIER 06/17/2027 NEO100 / [id number] / Glenosphere Std 36mm Psf969 - [id number] Implanted:Qty : 1 on 05/06/2023 at [facility] IMPLANTS Left: Shoulder TORNIER 07/05/2027 ATS292 / [id number] / Post Press-Fit 7mm Qif845 - [id number] Implanted:Qty : 1 on 05/06/2023 by Kashif Ma MD at [facility] IMPLANTS Left: Shoulder TORNIER 11/16/2027 VMS870 / [id number] / Stem Ptc Part Coat Dist 11x9 [id number] - [id number] Implanted:Qty : 1 on 05/06/2023 by Kashif Ma MD at [facility] IMPLANTS Left: Shoulder TORNIER [id number] 05/13/2027 [id number] / [id number] / Bdy Prox Aeq Flx Rev 33s86il [id number] - [id number] Implanted:Qty : 1 on 05/06/2023 by Kashif Ma MD at [facility] IMPLANTS Left: Shoulder TORO MED GRP:TORO MED TECH 02/16/2028 [id number] / [id number] / Cap Jael Aeq Flx Rev [id number] - [id number] Implanted:Qty : 1 on 05/06/2023 by Kashif Ma MD at [facility] IMPLANTS Left: Shoulder TORNIER 03/17/2028 [id number] / [id number] / Scr Assm Aeq Flx Rev 0mm [id number] - [id number] Implanted:Qty : 1 on 05/06/2023 by Kashif Ma MD at [facility] IMPLANTS Left: Shoulder TORNIER 10/29/2027 [id number] / [id number] / Scr Periph 5.0x18mm Ns Obw969 - [id number] Implanted:Qty : 3 on 05/06/2023 by Kashif Ma MD at [facility] IMPLANTS Left: Shoulder TORNIER HEZ881 / [id number] / Scr Periph 5.0x30mm Ns Muj868 - [id number] Implanted:Qty : 1 on 05/06/2023 by Kashif Ma MD at [facility] IMPLANTS Left: Shoulder TORNIER UVB889 / [id number] / Platefm Rev Ty Flx Shldr 1.5mm Ygw052 - [id number] Implanted:Qty : 1 on 05/06/2023 by Kashif Ma MD at [facility] IMPLANTS Left: Shoulder TORNIER 11/23/2027 ABG356 / [id number] / Insrt Shldr Flex Rev +6 36mm Smg386m - [id number] Implanted:Qty : 1 on 05/06/2023 by Kashif Ma MD at [facility] IMPLANTS Left: Shoulder TORNIER 11/27/2027 [id number] / [id number] / Cement Bone Smplx Hv 6194-1-001 - [id number] Implanted:Qty : 2 on 04/01/2025 by Benjy Bennett MD at [facility] IMPLANTS Left: Knee PHI:[employer]YKE [employer] 07/19/2026 6194-1-001 / / [id number] Psn Asf Fixed Bearing 14mm L 75-6642-500-1 4 - [id number] Implanted:Qty : 1 on 04/01/2025 by Benjy Bennett MD at [facility] TOTAL JOINT CONSTRUCT Left: Knee GENO:GENO [id number] 03/29/2029 42-5126-00 7- / / [id number] Fem Cemented Sz 6 L 04-2915-596-0 1 - [id number] Implanted:Qty : 1 on 04/01/2025 by Benjy Bennett MD at [facility] TOTAL JOINT CONSTRUCT Left: Knee GENO:GENO [id number] 02/26/2034 42-5006-06 0- / / [id number] Psn Tibia 0 Keel L Sz E 87-6579-176-0 1 - [id number] Implanted:Qty : 1 on 04/01/2025 by Benjy Bennett MD at [facility] TOTAL JOINT CONSTRUCT Left: Knee GENO:GENO 12/29/2034 42-5360-07 1- / [id number] Explanted Type Area Software Development Intern Device Identifier Shelf Expiration Date Model / Serial / Lot Scr Bright Jael 3.5x30mm 8161-35-030 - [id number] Explanted:Qty : 1 on 11/26/2022 at [facility] IMPLANTS Left: Humerus GENO BIOMET 0 / [id number] / Scr Bright Jael 3.5x36mm 8161-35-036 - [id number] Explanted:Qty : 1 on 11/26/2022 at [facility] IMPLANTS Left: Humerus GENO BIOMET 6 / [id number] / Procedures Procedure Name Priority Date/Time Associated Diagnosis Comments HEMOGLOBIN A1C Routine 05/03/2023 11:47 AM EDT Preop testing from Last 3 Months or Most Recently Relevant to Health Maintenance Results * Hemoglobin A1c (05/03/2023 11:47 AM EDT) Hemoglobin A1C 8.1 % 05/03/2023 9:00 PM EDT [facility] Comment: Hemoglobin A1C levels are related to mean glucose during the preceding 2-3 months. Less than 7% demonstrates glycemic control in diabetic patients. Hemoglobin AlC % Suggested Diagnosis > or = 6.5 Diabetic 5.7 - 6.4 Prediabetic <5.7 Non-diabetic eAVG Glucose 185.77 mg/dL 05/03/2023 9:00 PM EDT [facility] Blood Venipuncture / Unknown 05/03/2023 11:47 AM EDT 05/03/2023 11:59 AM EDT Kashif Ma MD LAB BLOOD ORDERABLES Final Result [facility] [address] [phone] from Last 3 Months or Most Recently Relevant to Health Maintenance Insurance MEDICARE PART A B [facility] CLAIM[facility] Advance Directives For more information, please contact: [phone] Documents on File Type Date Recorded Patient Mma Fighter Expl anation Advance Directives and Livin g Will 05/06/2023 5:04 AM * Full Code (Latest Code Status on File) Date Activated Date Inactivated Comments 04/01/2025 11:13 AM 04/02/2025 1:49 PM * Full Code Date Activated Date Inactivated Comments 04/01/2025 6:47 AM 04/01/2025 11:13 AM * Full Code Date Activated Date Inactivated Comments 05/06/2023 10:08 AM 05/10/2023 2:31 PM * Full Code Date Activated Date Inactivated Comments 05/06/2023 5:17 AM 05/06/2023 10:08 AM * Full Code Date Activated Date Inactivated Comments 11/26/2022 1:18 PM 11/27/2022 3:49 PM Care Teams Overhead Crane Technician Relationship Specialty Start Date End Date Lizette Cruz, FISH HATCHERY MAN [address] [address] PCP - General Nurse Practitioner 04/06/23
--- OUTSIDE RECORDS SUMMARY | 2025-09-09 13:37 | XMS_ITS | Encounter Summary ---
Author Organization [facility] Address [address] [place] [address] Care Team Providers Care Motion Picture Actor Name Role Phone Lizette Cruz JETHRO Primary Care Provider [phone]- [phone] Karlo Rosanne Whitley MORELOS, DNP Unavailable [phone] Encounter Details Date Type Department Care Team ( Contact Info) Description 08/28/2025 Telephone [facility] Endocrinology [address] [place] [address] Sarahi Nunez PA [address] [facility] [address] [place] [address] Social History Tobacco Use Types Packs/Day Years [...] on file Sexual Orientation Not on file documented as of this encounter Plan of Treatment Upcoming Encounters Date Type Department Care Team (Late Contact Info) Description 09/18/2025 11:00 AM EST Office Visit [facility] Endocrinology [address] [place] [address] Sarahi Nunez PA [address] [facility] [address] [place] [address] 11/21/2025 10:20 AM EST Office Visit [facility] [address] [place] [address] Rosanne Dietrich APRN, VEL [id number] [place] [address] documented as of this encounter Visit Diagnoses Not on filedocumented in this encounter Additional Health Concerns Assessment Noted Time A fall risk assessment has been complete d for the patient 06/04/2025 10:13 AM EDT A Body Mass Index follow-up plan has been documented for the patient 06/04/2025 11:29 AM EDT documented as of this encounter Care Teams Motion Picture Actor Relationship Specialty Start Date End Date Lizette Cruz APRN [facility] [address] [address] PCP - General 11/23/22 Rosanne Dietrich APRN, VEL [id number] [place] [address] Nurse Practitioner Urology 11/20/24 documented as of this encounter
--- OUTSIDE RECORDS SUMMARY | 2025-09-09 13:37 | XMS_ITS | Encounter Summary ---
Author Organization [facility] Address [address] [place] [address] Care Team Providers Care Meat Blender Name Role Phone Lizette Cruz JETHRO Primary Care Provider [phone]- [phone] Karlo Rosanne Whitley MORELOS, DNP Unavailable [phone] Encounter Details Date Type Department Care Team (Late st Contact Info) Description 08/28/2025 Telephone [facility] Endocrinology [address] [place] [address] Sarahi Nunez PA 2[address] [facility] [address] [place] [address] Social History Tobacco Use Types [...] on file documented as of this encounter Miscellaneous Notes * Telephone Encounter - Katelyn Fu CDE, RD - 08/29/2025 10:08 AM EST Returned pt call, inquired which medications are not covered. Pt admits will be switching insuranceon 09/19 and was told by someone named Elizabeth from our office that she will have to switch from novolog to humalog but that tresiba will no longer be covered. Explained to pt that Elizabeth does not work in our office, pt admits she might have called from pharmacy. Also explained to pt that if we switch rx now and she goes to fill any of them now current insurance will deny coverage. Informed her that after 09/19 our pharmacy will notify us of med changes and advise to switch to formulary preference. Pt then started talking about her BG levels are all over the place, sometimes doesn't take pre meal humalog b/c BG is low but I can go from 62-300 really fast pt then states that if she is low before the meal and doesn't take premeal insulin if post meal BG goes high will take it then and have alow by next meal so won't take any then either. Advised to NEVER take humalog/novolog after she eats despite how high her BG gets, must wait until next meal to take regular dose of rapid acting plus s liding/correction scale dose. Pt then states is afraid to take extra sliding/correction dose. Pt also states not taking trulicity b/c is worried about lows. Advised that if she begins taking trulicity she may be able to go w/o meal time insulin dosing. Pt still indicates concern about trulicity. Ptthen inquired about where to send income verifaction b/c she is trying to continue w/ MAP program. Advised to contact pharmacy. In conclusion to our entire conversation, pt indicated she will call pharmacy to provide approval to notify our office of formulary changes and to inquire about MAP. No other concerns noted * Telephone Encounter - RODRIGO VILLA - 08/28/2025 10:10 AM EST Pt states her insurance is no longer going to be covered by insurance, she would like call back. documented in this encounter Plan of Treatment Upcoming Encounters Date Type Department Care Team (Late st Contact Info) Description 09/18/2025 11:00 AM EST Office Visit [facility] Endocrinology [address] [place] [id number] Sarahi Nunez PA [address] [place] [address] 11/21/2025 10:20 AM EST Office Visit [place] [facility] [address] [place] [address] Rosanne Dietrich APRN, VEL [address] [place] [address] documented as of this encounter Visit Diagnoses Not on filedocumented in this encounter Additional Health Concerns Assessment Noted Time A fall risk assessment has been complete d for the patient 06/04/2025 10:13 AM EDT A Body Mass Index follow-up plan has been documented for the patient 06/04/2025 11:29 AM EDT documented as of this encounter Care Teams Meat Blender Relationship Specialty Start Date End Date Lizette Cruz APRN [address] [place] [address] PCP - General 11/23/22 Rosanne Dietrich APRN, VEL [address] [place] [address] Nurse Practitioner Urology 11/20/24 documented as of this encounter
--- OUTSIDE RECORDS SUMMARY | 2025-09-09 13:37 | XMS_ITS | Encounter Summary ---
Author Organization [facility] Address [address] [place] [address] Care Team Providers Care Air Traffic Control Specialist Center Name Role Phone Miles Garcia MD Primary Care Provider [phone] Lizette Cruz APRN Primary Care Provider [phone] Rosanne Dietrich APRN, DNP Unavailable [phone] Reason for Visit * Reason Comments Med Refill Encounter Details Date Type Department Care Team (Late st Contact Info) Description 09/23/2022 Refill [facility] [address] [place] [address] Larissa Luis APRN [address] [facility] [address] [place] [address] Type 2 diabetes mellitus with other specified complication, with long-term current use of insulin ([facility]) Social History Tobacco Use Types Packs/Day Years Used Date Smoking Tobacco: Never Smokeless Tobacco: Never Alcohol Use Standard Drinks/Week Comments No 0 (1 standard drink = 0.6 oz pur e alcohol) Comments Unknown Sex and Gender Information Value Date Recorded Sex Assigned at Not on file Legal Sex Female 8:05 PM EDT Gender Identity Not on file Sexual Orientation Not on file documented as of this encounter Plan of Treatment Upcoming Encounters Date Type Department Care Team (Late st Contact Info) Description 09/18/2025 11:00 AM EST [facility] Endocrinology [address] [place] [address] Sarahi Nunez PA [address] [facility] [address] [place] [phone] 11/21/2025 10:20 AM EST Office Visit [place] [facility] [address] [place] [address] Rosanne Dietrich APRN, VEL [id number] [place] [address] documented as of this encounter Visit Diagnoses Diagnosis Type 2 diabetes mellitus with other specified complication, with long-term current use of insulin documented in this encounter Additional Health Concerns Assessment Noted Time A fall risk assessment has been complete d for the patient 06/09/2022 10:54 AM EDT documented as of this encounter Care Teams Air Traffic Control Specialist Center Relationship Specialty Start Date End Date Miles Garcia MD [address] [place] [id number] PCP - General 01/30/21 11/22/22 Lizette Cruz APRN [facility] [address] [address] PCP - General 11/23/22 Rosanne Dietrich APRN, DNP [id number] [place] [address] Nurse Practitioner Urology 11/20/24 documented as of this encounter
--- OUTSIDE RECORDS SUMMARY | 2025-09-09 13:37 | XMS_ITS | Clinical Summary ---
Author Organization [facility] Address [address] [facility] [address] [place] [address] Phone Care Team Providers Care Police Detective Name Role Phone Oswald Hollingsworth DPM Unavailable Jorden Resendez MD Primary Care Provider [phone] Allergies Active Allergy Reactions Criticality Noted Date Comments Hydromorphone Nausea And Vomiting,Anxiety Medium 10/03 Medications aspirin 81 mg Oral Tablet, Delayed Release (E.C.) Take 81 mg by mouth daily. Active NOVOLOG 100 unit/mL SubQ Solution Subcutaneous (Inject under the skin) 8 Units 3 times daily (before meals). 7 Active methenamine (HIPREX) 1 gram Oral Tablet Take 1 g by mouth daily. 7 Active atorvastatin (LIPITOR) 40 mg Oral Tablet Take 40 mg by mouth daily. 7 Active gabapentin (NEURONTIN) 100 mg Oral Capsule 300 mg 4 times daily. Take 1 capsule by mouth three times daily and 3 capsules at bedtime 0 Active TRESIBA FLEXTOUCH U-100 100 unit/mL (3 mL) SubQ Insulin Pen Subcutaneous (Inject under the skin) 22 Units every morning. 0 Active multivitamin, stress formula (ALLBEE VIT WITH C & B COMPLEX) Oral Tablet Take 1 Tab by mouth daily. Active vit A/vit C/vit E/zinc/copper (ICAPS AREDS ORAL) Take 1 Cap by mouth daily. Active tiZANidine (ZANAFLEX) 4 mg Oral Tablet Take 1 Tab by mouth every 6 hours as needed for Muscle spasms. 60 Tab 0 Active estradioL (ESTRACE) 0.01 % (0.1 mg/gram) Vagl Cream Place 2 g vaginally two times a week. Takes on Tuesday and Tuesday Active meloxicam (MOBIC) 7.5 mg Oral Tablet Take 7.5 mg by mouth 2 times daily. Active hydroCHLOROthiaz eloisa (HYDRODIURIL) 25 mg Oral Tablet Take 25 mg by mouth daily. Active ALPRAZolam (NIRAVAM) 0.5 mg Oral Tablet, Rapid DissolveIndicati ons:Anxiety due to invasive procedure Take 1-2 Tablets by mouth Preprocedure for Anxiety for up to 2 doses. Take 1 an hour prior to procedure and bring other tablet with you 2 Tablet 1 Active diclofenac (VOLTAREN) 75 mg Oral Tablet, Delayed Release (E.C.)Indication s:Spondylolisthe sis, lumbar region,Spinal stenosis of lumbar region, unspecified whether neurogenic claudication present TAKE ONE TABLET BY MOUTH 2 TIMES A DAY NEEDED 60 Tablet 1 Active lisinopriL (PRINIVIL;ZESTRI L) 5 mg Oral Tablet 10 mg. 1 Active omeprazole (PRILOSEC) 20 mg Oral Capsule, Delayed Release(E.C.) Take by mouth every morning (before breakfast). TAKES AT LUNCH TIME Active methylPREDNISolo ne (MEDROL, RENÉ,) 4 mg Oral Tablets, Dose Pack follow package directions PRN spasm or radiating pain down lower extremities 21 Tablet 2 Active oxyCODONE (ROXICODONE) 5 mg Oral Tablet Take 1-2 Tablets by mouth every 6 hours as needed for Acute Pain > 3 Days Medically Necessary (R52) (post op pain). 20 Tablet 2 Active docusate sodium (COLACE) 100 mg Oral Capsule Take by mouth 2 times daily. Active Herbal Drugs Oral Tablet Take by mouth 2 times daily. fiber com Active temazepam (RESTORIL) 15 mg Oral Capsule Take by mouth nightly as needed for Sleep. Active traMADoL (ULTRAM) 50 mg Oral Tablet Take by mouth every 6 hours as needed for Pain. Active loratadine (CLARITIN) 10 mg Oral Tablet Take 10 mg by mouth daily. Active ferrous sulfate 325 mg (65 mg iron) Oral Tablet Take by mouth 2 times daily. Active alendronate (FOSAMAX) 70 mg Oral Tablet 4 Active azithromycin (ZITHROMAX) 250 mg Oral Tablet 4 Active FREESTYLE LITE STRIPS [facility] Strip use 1 strip to check glucose three times daily 4 Active doxycycline monohydrate (ADOXA) 100 mg Oral Tablet 4 Active losartan (COZAAR) 50 mg Oral Tablet 4 Active nitrofurantoin (MACRODANTIN) 100 mg Oral Capsule 4 Active nitrofurantoin, macrocrystal-mon ohydrate, (MACROBID) 100 mg Oral Capsule 4 Active oxybutynin (DITROPAN-XL) 10 mg Oral Tablet Extended Rel 24 hr 4 Active BD ULTRA-FINE MINI PEN NEEDLE 31 gauge x 12/02 Misc Needle 4 Active tolterodine (DETROL LA) 4 mg Oral Capsule, Sust. Release 24 hr 4 Active Active Problems Patient Care Coordination No te Formatting of this note migh t be different from the original. [facility] - Colt Portillo MD Interventional Pain Protocol: Andres report completed (EVERY 3 MONTHS)01/18/2022 Pharmacy: [facility] - [place] [id number] - [address] - [phone] Spine Center additional info (Transportation, WC, Compound, No Show, PPW) Problem Noted Date Diagnosed Date Painful diabetic neuropathy 11/02/2021 Diabetic polyneuropathy asso ciated with type 2 diabetes mellitus 11/02/2021 Intractable back pain 06/02/2020 Dyslipidemia 06/02/2020 History of recurrent UTIs 06/02/2020 Acute exacerbation of chronic low back pain 02/2020 Insulin dependent type 2 diabetes mellitus 02/22 Gastroesophageal reflux disease without esophagi tis 02/23/2020 Vertebrogenic low back pain Vertebrogenic pain Encounters Date Type Department Care Team Description 06/25/2025 2:15 PM EDT Procedure visit [facility] Podiatry [address] [place] [address] Oswald Hollingsworth, DPM Type 2 diabetes mellitus with diabetic neuropathy, with long-term current use of insulin (HCC) (Primary Dx); Painful diabetic neuropathy (HCC); Pain in both feet; Diabetic polyneuropathy associated with diabetes mellitus due to underlying condition (HCC) from Last 3 Months Immunizations Immunization Administration Dates Next Due Pneumococcal Polysaccharide 23 Valent 06/04/2020 Surgical History Surgery Date Site/Laterality Comments LUMBAR DISC SURGERY 02/25/2020 N/A L4/5, LAMINECTOMY, L4/5 DISCECTOMY; Surgeon: Landon Hartmann MD; Location: [facility] OR; Service: Spine LUMBAR DISC SURGERY 06/03/2020 N/A Discectomy L5/S1,; Surgeon: Landon Hartmann MD; Location: [facility] MAIN OR; Service: Spine IR 2 LEVEL BILATERAL MEDIAL BRANCH BLOCK LUM SAC 05/27/2021 IR 2 LEVEL BILATERAL MEDIAL BRANCH BLOCK LUM SAC 05/27/2021 [facility] IR 2 LEVEL BILATERAL MEDIAL BRANCH BLOCK LUM SAC 06/24/2021 IR 2 LEVEL BILATERAL MEDIAL BRANCH BLOCK LUM SAC 06/24/2021 Colt Portillo MD [facility] HAND SURGERY carpal tunnel [place] EYE SURGERY [place]. CATARACT FOOT SURGERY [place] MULTIPLE BACK SURGERY 08/26/2022 Bilateral SHOULDER SURGERY 11/26/2022 Left Medical History Medical History Date Comments Diabetes mellitus (HCC) Arthritis Heartburn Osteoarthritis Hyperlipidemia Urinary tract infection Hypertension Social History Tobacco Use Types Packs/Day Years [...] Sign Reading Time Taken Comments Blood Pressure 149/84 01/08/2022 12:58 PM EDT Pulse 84 01/18/2022 1:00 PM EDT Temperature 36.1 C (97 F) 06/25/2025 2:13 PM EDT Respiratory Rate 18 01/08/2022 12:58 PM EDT Oxygen Saturation 97% 01/18/2022 1:00 PM EDT Inhaled Oxygen Concentration - - Weight 72.6 kg (160 lb) 06/25/2025 2:13 PM EDT Height 160 cm (5' 3 ) 06/25/2025 2:13 PM EDT Body Mass Index 28.34 06/25/2025 2:13 PM EDT Plan of Treatment Upcoming Encounters Date Type Department Care Team (Late st Contact Info) Description 10/01/2025 2:45 PM EST Office Visit [facility] [place] [address] [facility] [address] [place] [address] Oswald Hollingsworth DPM [address] [place] [address] Health Maintenance Due Date Last Done Comments Wellness Exam Medicare 1950 Lipids 1957 Diabetic Eye Exam 1965 Hepatitis C Screening 1965 DTaP/TDaP/Td (1 - Tdap) 11/24/1996 11/23/1996 Bone Density Screening 2012 Zoster (2 of 3) 08/30/2016 07/05/2016 Kidney Health: uACR 02/22/2021 02/23/2020 Kidney Health: eGFR 01/08/2023 01/08/2022, 10/17/2020, 06/02/2020, Additional history exists COVID-19 Vaccine ( season) 2025 07/06/2024, 09/21/2023, 08/09/2022, Additional history exists Influenza Vaccine (#1) 2025 , 08/01/2023, 07/16/2022, Additional history exists Hemoglobin A1c 12/02/2025 06/04/2025, 11/17, 05/29/2024, Additional history exists Pneumococcal Vaccine 50+ Completed 09/09/2022, 05/20 RSV or 60+ Completed 08/09/2023 Hepatitis B Vaccine Aged Out No longe r eligible based on patient's age to complete this topic Meningococcal B Vaccine Aged Out No l onger eligible based on patient's age to complete this topic Procedures Procedure Name Priority Date/Time Associated Diagnosis Comments BASIC METABOLIC PANEL STAT 01/08/2022 9:22 AM EDT Preop testing Insulin dependent type 2 diabetes mellitus (HCC) ALBUMIN/CREATININE RATIO, RANDOM URINE Routine 02/23/2020 5:55 PM EDT HEMOGLOBIN A1C Routine 02/22/2020 5:55 PM EDT from Last 3 Months or Most Recently Relevant to Health Maintenance Results * (ABNORMAL) BASIC METABOLIC PANEL (01/08/2022 9:22 AM EDT) Sodium 143 136 - 145 mmol/L 01/08/2022 10:22 AM EDT [facility] Potassium 4.5 3.5 - 5.0 mmol/L 01/08/2022 10:22 AM EDT [facility] Chloride 104 98 - 107 mmol/L 01/08/2022 10:22 AM EDT [facility] Total CO2 27 22 - 29 mmol/L 01/08/2022 10:22 AM EDT [facility] Anion Gap 12 7 - 16 mmol/L 01/08/2022 10:22 AM EDT [facility] Calcium 9.2 8.8 - 10.4 mg/dL 01/08/2022 10:22 AM EDT [facility] Glucose Lvl 300(H) 82 - 100 mg/dL 01/08/2022 10:22 AM EDT [facility] BUN 15 8 - 23 mg/dL 01/08/2022 10:22 AM EDT [facility] Creatinine 0.71 0.51 - 1.30 mg/dL 01/08/2022 10:22 [facility] eGFR (CKD-EPIcr 2020) 89 >=60 mL/min/1.7 3 m2 01/08/2022 10:22 AM EDT [facility] Comment:Estimated GFR was ca lculated using the CKD-EPIcr (2020) equation refit without race. The equation is recommended by the National Kidney Foundation - [place] [employer] Nephrology Task Force. Blood VENOUS BLOOD / Unknown Venipuncture / Unknown 01/08/2022 9:22 AM EDT 01/08/2022 9:53 AM EDT us Dominga Petit APRN CHEMISTRY ORDERABLES Final R esult Performing Organization Address City/[facility] Co de Phone Number [facility] [address] [place] [address] * MICROALBUMIN/CREATININE RATIO URINE (02/23/2020 5:55 PM EDT) Urine Albumin <12.0 mg/L 02/23/2020 9:51 PM EDT [facility] Urine Creatinine 159.6 mg/dL 02/23/20 20 9:51 PM EDT [facility] Ur Albumin/Creat Ratio 02/23/2020 9:51 PM EDT [facility] Comment: Because the albumin level is below the level of detection in this urine specimen, the laboratory is unable to calculate a reliable albumin/creatinine ratio. Microalbuminuria is unlikely if the urine albumin concentration is less than 20- 30 mg/L in a random specimen. Urine STRUCTURE OF URINARY TRACT PROPER / Unknown 02/23/2020 5:55 PM EDT 02/23/2020 6:29 PM EDT Tony Taylor MD URINE ORDERABLES Final Result Performing Organization Address [facility] de Phone Number [facility] [address] [facility] , [place] [address] * (ABNORMAL) HEMOGLOBIN A1C (02/22/2020 5:55 PM EDT) Hgb A1C 8.8(H) 4.2 - 5.6 % 02/23/2020 11:26 AM EDT [facility] Est. Avg Glucose 206 mg/dL 02/23/2020 11:26 AM EDT [facility] Blood VENOUS BLOOD / Unknown Venipuncture / Unknown 02/22/2020 5:55 PM EDT 02/22/2020 6:01 PM EDT Narrative [facility] - 02/23/2020 11:26 AM EDT REFERENCE RANGE: Normal: 4.0-5.6% Pre-diabetes: 5.7-6.4% Provisional diagnosis of diabetes: >6.4% Hgb F>10% and anything which shortens red cell survival, such as hemolytic anemia, or unstable hemoglobin variants such as HbSS, HbSC, or HbCC, will lower the HbA1c value associated with a given level of glycemic control. us Tony Taylor MD CHEMISTRY ORDERABLES Final Resu lt [facility] [address] [facility] [address] [place] [address] [place] [address] from Last 3 Months or Most Recently Relevant to Health Maintenance Insurance MEDICARE [place] PART A AND B [address] SUPP[place]AL [place]ARE [place] PART A AND B SUPPLEMENTAL * Guarantor: Namrata [employer] Account Type Relation to Patient Date of Phone Billing Address [place] Personal Family Self 1945 [id number] [address] MEDICARE [place] PART A AND B SUPPLEMENTAL Advance Directives For more information, please contact: [phone] * Full Code (Latest Code Status on File) Date Activated Date Inactivated Comments 06/02/2020 4:28 PM 06/05/2020 5:30 PM * Full Code Date Activated Date Inactivated Comments 02/22/2020 8:34 PM 02/26/2020 8:00 PM Care Teams Police Detective Relationship Specialty Start Date End Date Jorden Resendez MD [address] [facility] [address] [place] [address] PCP - General Internal Medicine-Adolescent Medicine 01/07/22 Oswald Hollingsworth DPM [address] [facility] [address] [place] [address] Efficiency Manager-Surgery, Foot & Ankle 08/05/14
--- OUTSIDE RECORDS SUMMARY | 2025-09-09 13:37 | XMS_ITS | Clinical Summary ---
Author Organization [employer] ([place], [place], [place], [place], [place]) Address [address] [place] [address] Care Team Providers Care Freight Coordinator Name Role Phone Lizette Cruz APRN Primary Care Provider [phone] Allergies Active Allergy Reactions Criticality Noted Date [...] of chronic low back pain 02/23/2020 11/26/2022 Family History Medical History Relation Name Comments Lung cancer Father Heart disease Mother had pacemaker, CHF Relation Name Status Comments Father Mother Social [...] Date Kasi rded Speak language other than Setswana at home Not on file 10/07/2023 Want [...] 04/01/2025 7:48 AM EDT Plan of Treatment Health Maintenance Due Date Last Done Comments DXA SCAN 1945 Diabetic Kidney Health Evalu ation (KED) 1945 Diabetic Eye Exam 1957 Depression Screening (12+) 1959 Hepatitis C Screening 1965 Medicare Initial AWV G0438 11/18/2006 DTAP/TDAP/TD VACCINES (2 - T d or Tdap) 11/23/2006 11/23/1996 Shingles Vaccine (Zoster) (2 of 2) 08/30/20162015 Respiratory Syncytial Virus (RSV) Adult or (1 - 1-dose 75+ series) 2022 Hemoglobin A1C 11/03/2023 05/03/2023 Falls Risk Screening 09/19/2024 COVID-19 VACCINE (5 - 2024-2 6 season) 2025 03/24/2022, 09/02/2021, 11/12/2020, Additional history exists Influenza Vaccine (#1) 2025 , 08/01/2023, 07/16/2021, Additional history exists Tobacco Cessation Counseling and Screening (12+) 04/01/2026 04/01/2025 Pneumococcal 50+ years Completed 09/09/2022, 2019 Medical Devices Implanted Type Area Insurance Examiner Device Identifier Shelf Expiration Date Model / Serial / Lot Fibergraft Mtrx 12.5cc [id number] - [id number] Implanted:Qty : 1 on 08/26/2022 by Jacqui Henriquez MD at [facility] IMPLANTS N/A: Back [employer] 10/07/2024 [id number] / / [id number] Bone Fibers 5.0cc Pliafx Crtcl Bl-1800-05 - [id number] Implanted:Qty : 1 on 08/26/2022 by Jacqui Henriquez MD at [facility] IMPLANTS N/A: Back LIFENET:LIFENE T TRANSPLANT SRV 01/07/2027 BL-1800-05 / [id number] / Bone Vivigen Formable Cell 5cc Bl-1600-002 - [id number] Implanted:Qty : 1 on 08/26/2022 by Jacqui Henriquez MD at [facility] IMPLANTS N/A: Back LIFENET:LIFENE T TRANSPLANT SRV 08/09/2023 BL-160000 2 / [id number] / Imp Vpr Prm Cfxfen Xtab 6x45mm [id number] - [id number] Implanted:Qty : 2 on 08/26/2022 by Jacqui Henriquez MD at [facility] IMPLANTS N/A: Back J &J:DEPUY:DEPUY SPINE [id number] / 5 / Mis Rossy Ply Scrw Set Ti - [id number] Implanted:Qty : 4 on 08/26/2022 by Jacqui Henriquez MD at [facility] IMPLANTS N/A: Back J &J:DEPUY:DEPUY SPINE 0 / 0 / Imp Vpr Prm Cfxfen Xtab 6x40mm [id number] - [id number] Implanted:Qty : 2 on 08/26/2022 by Jacqui Henriquez MD at [facility] IMPLANTS N/A: Back J &J:DEPUY:DEPUY SPINE [id number] / 0 / Nino Spine Viper 6.20s77sd -035 - [id number] Implanted:Qty : 2 on 08/26/2022 by Jacqui Henriquez MD at [facility] IMPLANTS N/A: Back J &J:DEPUY:DEPUY SPINE 5 / 5 / Cement Spinal Confidence 2839-10-000 - [id number] Implanted:Qty : 1 on 08/26/2022 by Jacqui Henriquez MD at [facility] IMPLANTS N/A: Back J &J:DEPUY:DEPUY SPINE 05/19/2024 0 / / [id number] Plt Hum Prox 3h 80mm Lt [id number] - [id number] Implanted:Qty : 1 on 11/26/2022 by Kashif Ma MD at [facility] IMPLANTS Left: Humerus GNEO BIOMET [id number] / [id number] / Scr Bright 3.5x26mm [id number] - [id number] Implanted:Qty : 1 on 11/26/2022 by Kashif Ma MD at [facility] IMPLANTS Left: Humerus BIOMET [id number] / [id number] / Scr Bright Jael 3.5x22mm [facility]35-022 - [id number] Implanted:Qty : 1 on 11/26/2022 by Kashif Ma MD at [facility] IMPLANTS Left: Humerus GENO BIOMET 2 / [id number] / Scr Bright Jael 3.5x26mm [facility]35-026 - [id number] Implanted:Qty : 2 on 11/26/2022 by Kashif Ma MD at [facility] IMPLANTS Left: Humerus GENO BIOMET 6 / [id number] / Scr Bright Jael 3.5x32mm [facility]35-032 - [id number] Implanted:Qty : 3 on 11/26/2022 by Kashif Ma MD at [facility] IMPLANTS Left: Humerus GENO BIOMET 2 / [id number] / Scr Bright Jael 3.5x36mm [facility]35-036 - [id number] Implanted:Qty : 1 on 11/26/2022 by Kashif Ma MD at [facility] IMPLANTS Left: Humerus GENO BIOMET 6 / [id number] / Scr Md Matthew T1Taylor 3.5x22mm [id number] - [id number] Implanted:Qty : 1 on 11/26/2022 by Kashif Ma MD at [facility] IMPLANTS Left: Humerus GENO:GENO [id number] / [id number] / Scr Md Matthew 3.5x24 [id number] - [id number] Implanted:Qty : 2 on 11/26/2022 by Kashif Ma MD at [facility] IMPLANTS Left: Humerus GENO BIOMET [id number] / [id number] / Scr Niraj Mata 3.5x26mm Ns [id number] - [id number] Implanted:Qty : 1 on 11/26/2022 by Kashif Ma MD at [facility] IMPLANTS Left: Humerus GENO BIOMET [id number] / [id number] / Bone Vivigen Formable Cell 5cc Bl-1600-002 - [id number] Implanted:Qty : 1 on 11/26/2022 by Kashif Ma MD at [facility] IMPLANTS Left: Shoulder LIFENET:LIFENE T TRANSPLANT SRV 11/03/2023 BL-1600-00 2 / [id number] / Baseplt Std 25mm Yor324 - [id number] Implanted:Qty : 1 on 05/06/[address] [facility] IMPLANTS Left: Shoulder TORNIER 06/17/2027 VIY150 / [id number] / Glenosphere Std 36mm Xsf423 - [id number] Implanted:Qty : 1 on 05/06/[address] [facility] IMPLANTS Left: Shoulder TORNIER 07/05/2027 IOT920 / [id number] / Post Press-Fit 7mm Aml999 - [id number] Implanted:Qty : 1 on 05/06/2023 by Kashif Ma MD at [facility] IMPLANTS Left: Shoulder TORNIER 11/16/2027 WOU521 / [id number] / Stem Ptc Part Coat Dist 11x9 Hfb190976 - [id number] Implanted:Qty : 1 on 05/06/2023 by Kashif Ma MD at [facility] IMPLANTS Left: Shoulder TORNIER [id number] 05/13/2027 [id number] / [id number] / Bdy Prox Aeq Flx Rev 41a35qw Vbz059201 - [id number] Implanted:Qty : 1 on 05/06/2023 by Kashif Ma MD at [facility] IMPLANTS Left: Shoulder TORO MED GRP:TORO MED TECH 02/16/2028 [id number] / [id number] / Cap Jael Aeq Flx Rev [id number] - [id number] Implanted:Qty : 1 on 05/06/2023 by Kashif Ma MD at [facility] IMPLANTS Left: Shoulder TORNIER 03/17/2028 [id number] / [id number] / Scr Assm Aeq Flx Rev 0mm [id number] - [id number] Implanted:Qty : 1 on 05/06/2023 by Kashif Ma MD at [facility] IMPLANTS Left: Shoulder TORNIER 10/29/2027 [id number] / [id number] / Scr Periph 5.0x18mm Ns Rmo353 - [id number] Implanted:Qty : 3 on 05/06/2023 by Kashif Ma MD at [facility] IMPLANTS Left: Shoulder TORNIER TBW349 / [id number] / Scr Periph 5.0x30mm Ns Cpe846 - [id number] Implanted:Qty : 1 on 05/06/2023 by Kashif Ma MD at [facility] IMPLANTS Left: Shoulder TORNIER SJI504 / [id number] / Platefm Rev Ty Flx Shldr 1.5mm Qly345 - [id number] Implanted:Qty : 1 on 05/06/2023 by Kashif Ma MD at [facility] IMPLANTS Left: Shoulder TORNIER 11/23/2027 OJD166 / [id number] / Insrt Shldr Flex Rev +6 36mm Aat195v - [id number] Implanted:Qty : 1 on 05/06/2023 by Kashif Ma MD at [facility] IMPLANTS Left: Shoulder TORNIER 11/27/2027 [id number] / [id number] / Cement Bone Smplx Hv 6194-1-001 - [id number] Implanted:Qty : 2 on 04/01/2025 by Benjy Bennett MD at [facility] IMPLANTS Left: Knee PHI:[facility]YKE [employer] 07/19/2026 6194-1-001 / / [id number] Psn Asf Fixed Bearing 14mm L 48-8252-091-1 4 - [id number] Implanted:Qty : 1 on 04/01/2025 by Benjy Bennett MD at [facility] TOTAL JOINT CONSTRUCT Left: Knee GENO:GENO [id number] 03/29/2029 42-5126-00 7- / [id number] Fem Cemented Sz 6 L 23-7725-554-0 1 - [id number] Implanted:Qty : 1 on 04/01/2025 by Benjy Bennett MD at [facility] TOTAL [employer]STRU[employer] Left: Knee GENO:GENO [id number] 02/26/2034 42-5006-06 0- [id number] Psn Tibia 0 Keel L Sz E 28-1389-736-0 1 - [id number] Implanted:Qty : 1 on 04/01/2025 by Benjy Bennett MD at [facility] TOTAL JOINT CONSTRUCT Left: Knee GENO:GENO 12/29/2034 42-5360-07 1- / [id number] Explanted Type Area Insurance Examiner Device Identifier Shelf Expiration Date Model / Serial / Lot Scr Bright Jael 3.5x30mm 8161-35-030 - [id number] Explanted:Qty : 1 on 11/26/[address] [facility] IMPLANTS Left: Humerus GENO BIOMET 0 [id number] / Scr Bright Jael 3.5x36mm 8161-35-036 - [id number] Explanted:Qty : 1 on 11/26/[address] [facility] IMPLANTS Left: Humerus GENO BIOMET 6 / [id number] / Procedures Procedure Name Priority Date/Time Associated Diagnosis Comments HEMOGLOBIN A1C Routine 05/03/2023 11:47 AM EDT Preop testing from Last 3 Months or Most Recently Relevant to Health Maintenance Results * Hemoglobin A1c (05/03/2023 11:47 AM EDT) Hemoglobin A1C 8.1 % 05/03/2023 9:00 PM EDT [facility] Comment: Hemoglobin A1C levels are related to mean glucose during the preceding 2-3 months. Less than 7% demonstrates glycemic control in diabetic patients. Hemoglobin AlC % Suggested Diagnosis > or = 6.5 Diabetic 5.7 - 6.4 Prediabetic <5.7 Non-diabetic eAVG Glucose 185.77 mg/dL 05/03/2023 9:00 PM EDT [facility] Blood Venipuncture / Unknown 05/03/2023 11:47 AM EDT 05/03/2023 11:59 AM EDT Kashif Ma MD LAB BLOOD ORDERABLES Final Result [facility] [address] [phone] from Last 3 Months or Most Recently Relevant to Health Maintenance Insurance MEDICARE PART A B HEALTH CLAIMS Advance Directives For more information, please contact: [phone] Documents on File Type Date Recorded Patient Inventory Assistant Expl anation Advance Directives and Sergio g Will 05/06/2023 5:04 AM * Full [...] 1:18 PM 11/27/2022 3:49 PM Care Teams Freight Coordinator Relationship Specialty Start Date End Date Lizette Cruz, MANAGER SOFTWARE [address] [address] PCP - General Nurse Practitioner 04/06/23
--- OUTSIDE RECORDS SUMMARY | 2025-09-09 13:37 | XMS_ITS | Encounter Summary ---
Author Organization [facility] Address [address] [place] [address] Care Team Providers Care Hog Grader Name Role Phone Lizette Cruz JETHRO Primary Care Provider +- [phone] Rosanne Dietrich APRN, DNP Unavailable [phone] Reason for Visit * Reason Comments Med Refill Encounter Details Date Type Department Care Team (Late st Contact Info) Description 06/22/2023 Refill [facility] [address] [place] [address] Rosanne Dietrich APRN, DNP [address] [place] [address] Social History Tobacco Use Types Packs/Day Years [...] encounter Miscellaneous Notes * Telephone Encounter - Yesi Becerra, PharmD - 06/22/2023 3:28 PM EDT Per protocol, 1 medication(s), Hiprex, has been approved for 30 day supply with 0 refill(s) to [facility]. Enough refills until appointment on 07/07 with Frannie Walter. Please request additional refills at appointment. documented in this encounter Plan of Treatment Upcoming Encounters Date Type Department Care Team (Late st Contact Info) Description 09/18/2025 11:00 AM EST [facility] [address] [place] [address] Sarahi Nunez PA [address] [place] [phone] 11/21/2025 10:20 AM EST Office Visit [facility] [address] [place] [address] Rosanne Dietrich APRN, VEL [address] [place] [phone] documented as of this encounter Visit Diagnoses Not on filedocumented in this encounter Additional Health Concerns Assessment Noted Time A fall risk assessment has been complete d for the patient 03/14/2023 10:31 AM EDT A Body Mass Index follow-up plan has been documented for the patient 03/14/2023 1:10 PM EDT documented as of this encounter Care Teams Hog Grader Relationship Specialty Start Date End Date Lizette Cruz APRN [address] [address] PCP - General 11/23/22 Rosanne Dietrich APRN, VEL [address] [place] [phone] Nurse Practitioner Urology 11/20/24 documented as of this encounter
--- OUTSIDE RECORDS SUMMARY | 2025-09-09 13:37 | XMS_ITS | Encounter Summary ---
Author Organization [facility] Address [address] [place] [address] Care Team Providers Care Tree Farmer Name Role Phone Lizette Cruz JETHRO Primary Care Provider +- [phone] Karlo Rosanne Whitley MORELOS, DNP Unavailable [phone] Encounter Details Date Type Department Care Team (Late st Contact Info) Description 07/29/2025 Telephone [facility] [address] [place] [address] Sarahi Nunez, PA [address] [facility] [address] [place] [address] Social History Tobacco Use Types [...] encounter Miscellaneous Notes * Telephone Encounter - Valentina Harris RN - 08/02/2025 11:27 AM EST Returned pt's call regarding blood sugars. I asked pt at last phone encounter to confirm low or high blood sugars with finger sticks. Patient reported her blood sugars that were at random times, however, the low blood sugars were 61, by sensor and 72 by finger stick, and another was 62, and she moved around and then sensor increased to 125, then finger stick was 117. Discussed the importance of confirming the lows with a fingerstick, and we also discussed her doses, and correction scale further. She reports for dinner she does not take her full 5 units because she does not eat enough. Informed her that we do not want her waking up >150, so if she feels 5 units is too much when she don't eat much, that it is fine to decrease that. She reports that she will start a new sheet of recordingfasting blood sugars and confirming lows. She reports that she will call us back if needed. No other concerns voiced. * Telephone Encounter - Valentina Harris RN - 08/01/2025 1:23 PM EST Returned pt's call. No answer. L/M and callback number. * Telephone Encounter - RODRIGO VILLA - 08/01/2025 9:15 AM EST Pt calling to give BG readings from the past few days. * Telephone Encounter - Valentina Harris RN - 07/29/2025 2:45 PM EST Returned pt's call regarding blood sugars. Patient reports that she has had diabetes for over 40 years, and she can tell if she has low or high blood sugars, however, she reports that she has been having low blood sugars and high blood sugars going from one extreme to the next. She reports that at 10 pm last night her BG was 250 and she gave 2 units and then at 12 am it was still 250. She reportsthat she thought about giving more insulin, however, she did not. I educated pt about insulin stacking and should be given at least every 3-4 hours. S he reports that when she woke up this morning at7 am ist was 390. And at 8:30 it was high. I asked if she was taking her Trulicity, and she reportsthat she is not. I asked if she was confirming these lows and highs with finger sticks and she reports that she is not. I educated pt as to why she should test by fingerstick especially since she is having major swings. I educated pt that the difference between the fingerstick and sensor can be up to a 20% difference and if it is greater than that then there could be a bad sensor. I advised for the next few days to please test with fingerstick when having these highs and lows and to call us back so we can see if medication adjustment need to be made. She verbalized understanding and reports that she will call us morning. No other concerns voiced. * Telephone Encounter - RODRIGO VILLA - 07/29/2025 11:28 AM EST Pt has not been able to control her BG, she has been having highs and lows. [phone] documented in this encounter Plan of Treatment Upcoming Encounters Date Type Department Care Team (Late st Contact Info) Description 09/18/2025 11:00 AM EST Office Visit [facility] Endocrin[facility] [address] [place] [phone] Sarahi Nunez PA [address] [facility] [address] [place] [phone] 11/21/2025 10:20 AM EST Office Visit [facility] [address] [place] [address] Rosanne Dietrich APRN, DNP [address] [place] [phone] documented as of this encounter Visit Diagnoses Not on filedocumented in this encounter Additional Health Concerns Assessment Noted Time A fall risk assessment has been complete d for the patient 06/04/2025 10:13 AM EDT A Body Mass Index follow-up plan has been documented for the patient 06/04/2025 11:29 AM EDT documented as of this encounter Care Teams Tree Farmer Relationship Specialty Start Date End Date Lizette Cruz APRN [facility] [place] [address] PCP - General 11/23/22 Rosanne Dietrich APRN, DNP [address] [address] Nurse Practitioner Urology 11/20/24 documented as of this encounter
== END 2025-09-09 23:59 | disposition home or self-care (01) ==
LOC: RAD 13:24
PROVIDERS: PCP Nurse Practitioner Family; Visit Provider Nurse Practitioner Family
DX: Z12.31 Encounter for screening mammogram for malignant neoplasm of breast (principal); R92.323 Mammographic fibroglandular density, bilateral breasts; M81.0 Age-related osteoporosis without current pathological fracture; Z78.0 Asymptomatic menopausal state
CPT/HCPCS: 77063; 77067; 77080